=== PATIENT | female | born 1945 | race Caucasian/White ===

== ENCOUNTER → 2017-11-12 13:13 | Outpatient (CLI) | payer MEDICARE, SELFPAY ==
--- NOTE | 2017-11-12 13:17 | NVE_ITS ---
Venous Exam Indications: 782.3 Edema. IMPRESSIONS 1. No evidence of deep or superficial vein thrombosis involving the right lower extremity 2. Incidental findings: At the right upper thigh a vascularized lymph node is visualized measuring 0.6 X 1.98 cm. At the mid to upper thigh a nonvascularized lymph node is visualized measuring 0.78 X 2.5 cm. Right lower extremity venous duplex evaluation. Doppler flow study including spectral analysis, color and aguila scale imaging. Location: Vascular laboratory. Patient status: Outpatient. CRITICAL FINDINGS - Reported to: Nathaly - Read back and verified. - 11/12/2017 - 13:45 PM - Vascularized lymph node Tables: Venous flow and imaging: + +-------+ + Location Overall Flow properties + +-------+ + Right common femoral Patent Normal phasicity; spontaneous; normal augmentation; compressible + +-------+ + Right saphenofemoral junction Patent Compressible + +-------+ + Right profunda femoral Patent Compressible + +-------+ + Right femoral Patent Normal phasicity; spontaneous; normal augmentation; compressible + +-------+ + Right greater saphenous Patent Normal phasicity; spontaneous; normal augmentation; compressible + +-------+ + Right popliteal Patent Normal phasicity; spontaneous; normal augmentation; compressible + +-------+ + Right posterior tibial Patent Compressible + +-------+ + Right peroneal Patent Compressible + +-------+ + Right gastrocnemius Patent Compressible + +-------+ + Right soleal Patent Compressible + +-------+ + (Report amended ) Electronically signed by: Carmelo Barnard [id number]
== END ==
PROVIDERS: PCP Internal Medicine Adolescent Medicine; Visit Provider Internal Medicine Adolescent Medicine
DX: M79.604 Pain in right leg (principal); R60.0 Localized edema
CPT/HCPCS: 93971

== ENCOUNTER → 2017-11-20 10:08 | Outpatient (CLI) | payer MEDICARE, SELFPAY ==
[2017-11-20 10:54] LABS: Blood Urea Nitrogen 9 mg/dL (7-18); Creatinine,Serum 0.78 mg/dL (0.55-1.02); Estimated Glomerular Filt Rate 72 ml/min (>60); GFR (African American) 87 ML/MIN (>60)
--- NOTE | 2017-11-20 11:01 | CT_ITS ---
CT abdomen pelvis w con CLINICAL INDICATION: Lymphadenitis, right leg swelling ORDERING PHYSICIAN: Bebo Stone MD PATIENT AGE: 72 years COMPARISON: None TECHNIQUE: Axial images obtained with sagittal and coronal reformats. PROCEDURE: Oral Contrast: Redicat IV Contrast: 75 mL's of Isovue-370. FINDINGS: There has been prior cholecystectomy. No ductal dilatation evident. Small area of decreased attenuation involves the right hepatic lobe near the gallbladder fossa at 1 cm and may be related to focal fatty infiltration. Follow-up may confirm. The spleen, pancreas, adrenal glands, and kidneys have an unremarkable appearance. No intestinal obstruction, free air, or diverticulitis evident. No evidence of appendicitis. Prior hysterectomy. No pelvic mass, focal inflammatory change, or abnormal fluid collection evident. There is a small umbilical hernia containing fat The left ilium has a somewhat coarsened trabecular appearance. This is of questionable clinical significance. Early Paget's disease is a consideration. Please correlate with serum alkaline phosphatase. IMPRESSION: 1. No acute abdominal pelvic pathology. No abdominal or pelvic adenopathy 2. Small umbilical hernia containing fat. 3. Coarse and appearance of the left ilium with thickened trabecular appearance nonspecific but can be seen with mild Paget's disease. Please correlate clinically
--- NOTE | 2017-11-20 11:01 | CT_ITS ---
CT chest w con HISTORY: Lymphadenitis, ITS.REASON: LYMPHADENITIS ORDERING PHYSICIAN: Bebo Stone MD PATIENT AGE: 72 years TECHNIQUE: Axial images obtained following the administration of 75 mL of Isovue 370 . Sagittal, and coronal reformatted images are also generated and reviewed. COMPARISON: None FINDINGS: No mediastinal or hilar mass or adenopathy. There are some small lymph nodes in the right hilum measuring up to 1.4 x 1 cm. Lobular soft tissue density is present along the anterior aspect of the right hemidiaphragm adjacent to the liver consistent small lymph node 1.6 x 1 cm. Small lymph node is present anterior to the pericardium at 11 mm. There is soft tissue density subcarinal region to the right of the right main pulmonary artery which may be related to subcarinal lymph nodes. This measures 2.9 x 2.5 cm. Pericardial thickening is an additional consideration. There is minimal thickening of pericardium anteriorly. There is normal heart size. There are centrilobular emphysematous changes with bolus changes in the upper lobes with scarring in the upper lobes and bilateral calcified nodules in the upper lobes. No lobar consolidation or collapse. No suspicious pulmonary nodules. There is a noncalcified subpleural nodule in the lingula at 5 mm There is wedging of the T12 vertebral body appears chronic with loss of heights centrally and greater than 50% loss of height anteriorly of 40% IMPRESSION: 1. Centrilobular emphysema with bullous changes and old granulomatous disease. 2. Soft tissue density in the subcarinal region which may be related to adenopathy versus small amount fluid in the pericardium. Consider follow-up 3-4 months to confirm stability. 3. Chronic wedging of T12
== END ==
PROVIDERS: Family Provider Internal Medicine; PCP Internal Medicine Adolescent Medicine; Visit Provider Internal Medicine Adolescent Medicine
DX: I88.9 Nonspecific lymphadenitis, unspecified (principal)
CPT/HCPCS: 36415; 71260; 74177; 82565; 84520

== ENCOUNTER → 2017-12-28 10:03 | Outpatient (CLI) | payer MEDICARE, SELFPAY ==
--- NOTE | 2017-12-28 10:27 | XR_ITS ---
XR DEXA axial skeleton COMPARISON: None HISTORY: Patient is postmenopausal, history of fracture as an adult TECHNIQUE: DEXA scanning lumbar spine and hips FINDINGS: The areas BMD lumbar spine L1-L4 is 1.012 g centimeters squared and the T score is -1.4. The total BMD right hip is 0.710 g centimeters square with T score of -2.4. The right femoral neck is 0.740 g centimeters square with a T score of -2.1. IMPRESSION: Findings in the mild osteopenia range lumbar spine and right hip, left hip values are similar. Consider follow-up study in 2 years
== END ==
PROVIDERS: Family Provider Internal Medicine; PCP Internal Medicine Adolescent Medicine; Visit Provider Internal Medicine Adolescent Medicine
DX: Z13.820 Encounter for screening for osteoporosis (principal); Z78.0 Asymptomatic menopausal state
CPT/HCPCS: 77080

== ENCOUNTER → 2023-09-09 16:56 | Outpatient (CLI) | payer MEDICARE, SELFPAY ==
[2023-09-09 16:53] LABS: Basophils % 0.2 % (0.1-2.0); Eosinophils # 0.1 K/mm3 (0.0-0.4); Eosinophils % 1.8 % (0.1-12.0); Hematocrit 43.3 % (37.0-47.0); Hemoglobin 13.8 g/dL (12.2-16.2); Lymphocytes # 1.8 K/mm3 (0.7-4.5); Lymphocytes % 32.4 % (10-50); Mean Corpuscular HGB Conc 31.8 g/dL (31.8-35.4); Mean Corpuscular Hemoglobin 31.4 pg (27.0-31.2); Mean Corpuscular Volume 98.8 fl (81-99); Mean Platelet Volume 9.3 fl (7.4-10.4); Monocytes # 0.3 K/mm3 (0.1-1.0); Neutrophils # 3.4 K/mm3 (1.8-7.8); Neutrophils % 60.5 % (37.0-80.0); Platelet Count 210 K/mm3 (142-424); Red Blood Count 4.38 M/mm3 (4.20-5.40); Red Cell Distribution Width 14.1 % (11.5-17.5); White Blood Count 5.6 K/mm3 (4.8-10.8)
[2023-09-09 17:09] LABS: Alanine Aminotransferase 26 U/L (12-78); Albumin Level 4.1 g/dl (3.5-5.0); Albumin/Globulin Ratio 1.3 (1.1-1.8); Alkaline Phosphatase 115 U/L (38-126); Anion Gap 10.1 mEq/L (5-15); Aspartate Amino Transferase 55 U/L (14-36); Bilirubin,Total 0.9 mg/dl (0.2-1.3); Blood Urea Nitrogen 6 mg/dl (7-17); Calcium 8.8 mg/dl (8.4-10.2); Carbon Dioxide 26 mmol/L (22.0-30.0); Chloride 106 mmol/L (98-107); Chol/HDL Ratio 3.2 (1-3.5); Cholesterol 174 mg/dl (140-200); Estimated Glomerular Filt Rate 81 ml/min (>60); GFR (African American) 97 ML/MIN (>60); Globulin 3.1 g/dL (1.3-3.2); Glucose 94 mg/dl (74-100); HDL Cholesterol 55 mg/dl (40-60); Potassium 4.1 mmoL/L (3.5-5.1); Sodium 138 mmol/L (136-145); Total Protein,Serum 7.2 g/dl (6.3-8.2); Triglycerides 103 mg/dl (30-150); VLDL Cholesterol 21 mg/dL (0-40)
[2023-09-09 17:19] LABS: Direct LDL Cholesterol 87.71 mg/dL (100-129)
[2023-09-09 17:39] LABS: Thyroid Stimulating Hormone 0.71 uIU/mL (0.465-4.68)
== END ==
PROVIDERS: PCP Family Medicine; Visit Provider Family Medicine
DX: Z00.00 Encounter for general adult medical examination without abnormal findings (principal); Z79.899 Other long term (current) drug therapy
CPT/HCPCS: 80053; 80061; 84443; 85025

== ENCOUNTER 2023-11-19 07:22 | Outpatient (CLI) | payer MEDICARE, SELFPAY ==
[2023-11-18 14:32] VITALS: BMI 26.6
[2023-11-19] VITALS (9 sets, daily range): BP systolic 105–148; BP diastolic 58–85; PULSE 50–63; RESP 16–18; TEMP 36.4; O2SAT 95–98
--- NOTE | 2023-11-19 07:24 | CA_ITS ---
APPROVED REPORT EXAM: Comprehensive 2D, Doppler, and color-flow Echocardiogram Helmet Binder: Zehra Nelson CRT Ht: 5 ft 7 in Wt: 174lbs BSA: 1.91 BP: 142/82 mmHg Indications: Abnormal ECG, COPD, Shortness of Breath, Palpitations, Ablation 2D Dimensions LA Volume 43.00 mL LA Volume Index 22.10 mL/m2 (M/F) 16-34 M-Mode Dimensions RVDd 2.65 cm (0.9-2.6) LA Diam 4.36 cm (1.9-4.0) LVDd 4.69 cm (3.5-5.7) LVDs 3.43 cm (3.5-5.7) IVSd 1.61 cm (0.6-1.1) PWd 0.86 cm (0.6-1.1) EF (Teich) 52.40% FS 26.90% EDV (Teich) 101.90 mL TAPSE 1.58 (<1.7) ESV (Teich) 48.50 mL LV Diastology E Decel Time 350 (160-240 msec) E/A Ratio 0.56 MED A' 12.50 cm/s LAT A' 12.70 cm/s Aortic Valve AI PHT 576.00 ms AO Peak GR. 6.10 mmHg Mitral Valve MV E Max Hiro. 58.0 (40-130 cm/s) MV A Velocity 104.0 (40-130 cm/s) E/A Ratio 0.56 MV PHT 103.0 ms Tricuspid Valve TR P. Velocity 261.00 cm/s RAP Estimate 10.00 mmHg RVSP 37.20 mmHg Left Ventricle The left ventricle is normal size. The left ventricular systolic function is normal. The left ventricular ejection fraction is within the normal range. There is increased LV wall thickness. There is normal LV segmental wall motion. Transmitral Doppler flow pattern suggests impaired LV relaxation. LVEF is 60%. Right Ventricle The right ventricle is normal size. The right ventricular systolic function is normal. Atria The left atrium size is normal. The right atrium size is normal. There is no Doppler evidence of interatrial shunt. Aortic Valve The aortic valve is mildly thickened. There is no aortic valvular stenosis. Mild aortic regurgitation. Mitral Valve The mitral valve is normal in structure. No evidence of mitral valve stenosis. Mild mitral regurgitation. Tricuspid Valve The tricuspid valve leaflets are thin and pliable. Mild tricuspid regurgitation. RVSP is 25-30 mmHg. Pulmonic Valve The pulmonary valve is normal in structure. Trace pulmonic regurgitation. Great Vessels The aortic root is normal in size. The ascending aorta is normal in size. IVC is normal in size and collapses >50% with inspiration. Pericardium There is no pericardial effusion. Other Information Study Quality: Fair Conclusion Normal biventricular systolic function. Mild AI, mild MR, mild TR. RVSP 25-30 mmHg. Electronically signed by : Elizabeth Alejo MD 11/23/2023 11:10:39
--- NOTE | 2023-11-19 07:24 | CA_ITS ---
FINAL REPORT TECHNIQUE: Color Doppler, duplex Doppler and aguila scale sonography of the bilateral neck vasculature was performed. Velocities were measured in the carotid arteries. Stenosis evaluation based on velocity criteria. CLINICAL HISTORY: carotid bruit COMPARISON: None FINDINGS: The peak systolic velocity of the right common carotid artery is 91 cm/sec and internal carotid artery 122 cm/sec. The diastolic velocity in the internal carotid artery is 38 cm/sec. The ICA/CCA ratio is 1.7. Visually, a small amount of plaque is seen. These findings are consistent with less than 50% stenosis. The external carotid artery is patent. The right vertebral artery is patent with antegrade flow. The peak systolic velocity of the left common carotid artery is 73 cm/sec and internal carotid artery 107 cm/sec. The diastolic velocity in the internal carotid artery is 33 cm/sec. The ICA/CCA ratio is 1.5. Visually, a small amount of plaque is seen. These findings are consistent with less than 50% stenosis. The external carotid artery is patent. The left vertebral artery is patent with antegrade flow. IMPRESSION: No evidence of significant carotid stenosis. Bilateral patent vertebral arteries. If indicated, CTA or MRA could further evaluate. Reviewed, Interpreted and Dictated by Jerry Bailon III, MD Transcribed by Meg Johnson Authenticated and [facility]
--- NOTE | 2023-11-19 08:32 | CT_ITS ---
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 A noncontrast coronary calcium scan was performed. A CT attenuation threshold of 130 Hounsfield units (HU) was used for the detection of calcium in contiguous voxels of 1 sq mm in area to be counted as individual lesions. Bolus tracking in the ascending aorta with a threshold of 180 HU was performed. Immediately afterwards, ECG synchronized cardiac CT was then performed from the cardiac base to apex using retrospective gating with ECG tube current modulation. A total of 85 mL of Isovue 370 mg/mL contrast medium was administered at 5 mL/sec followed by a saline flush using a biphasic injection protocol. A tube voltage of 120 KVp was used. The patient received the following medications prior to the cardiac CT. 25 mg of oral metoprolol 0.8 mg of sublingual nitroglycerin The average heart rate at the time of acquisition was 51 bpm and regular. Image Reconstruction Transaxial images were reconstructed at 0.67 mm slide thickness. Data was reviewed interactively on an advanced workstation capable of 2 and 3-dimensional displays in all conventional reconstruction formats, including multiplanar reformations, maximum intensity projections, curved multiplanar reformations, and volume rendered reconstructions. When applicable, selected routine images describing the relevant coronary anatomy and pathology were saved and sent to PACS. Complications None Technical Quality Overall image quality was good. Coronary artery opacification was adequate. Total DLP (Dose-Length Product) is 1639.3 mGy-cm. The reported value represents the total of one or more individual components during the CT acquisition of this date and at this time, and as such, the same value may appear in more than one CT report depending on the interpreting/reporting physicians. COMPARISON None FINDINGS CT Coronary Calcium Scoring LMA (Left Main Artery) = 33 6LAD (Left Anterior Descending) = 6 LCX (Left Coronary Circumflex) = 9 RCA (Right Coronary Artery) = 33 Total Calcium Score = 81 using the AJ-130 method. The observed calcium score of 81 is at 45th percentile for subjects of the same age, sex, and race/ethnicity. The interpretation of the calcium heart score is based on the following continuum*: 0 = no calcified plaque detected (risk of coronary artery disease is very low ??? less than 5%) 1-10 = calcium detected in extremely minimal levels (risk of coronary diseases is still low ??? less than 10%) 11-100 = mild levels of plaque detected with certainty (mild or minimal narrowing of heart arteries is likely) 101-400 = definite,at least moderate levels of plaque detected (relatively high risk of a heart attack within 3-5 years) >401-999 = extensive levels of plaque detected (high risk of heart attack, high levels of vascular disease are present, high likelihood of at least one significant coronary narrowing) *The calcium heart score quantifies the burden of coronary calcification/plaque in the coronary arteries. The calcium heart score is not able to evaluate the presence or burden of non-calcified (i.e. soft) plaque. There is also identifiable calcification in the ascending and descending thoracic aorta and aortic valve. Coronary CT Angiography The coronary arterial system is right dominant. Quantitative Stenosis Grading: Left Main (LM): The left main originates normally from the left sinus of Valsalva. The LM bifurcates into the left anterior descending artery and left circumflex artery. There is calcification in the ostial LM, but without evidence of luminal stenosis. Left Anterior Descending (LAD) and Diagonal Branches: The LAD gives off 2 diagonal branches. There is calcification in the proximal and mid LAD segments, but without evidence of luminal stenosis. There is no evidence of LAD bridge. Left Circumflex (LCX) and Obtuse Marginals (OM): The LCX gives off 2 Obtuse Marginal (OM) branches. There are focal calcifications in the proximal LCX, but without evidence of luminal stenosis. Right Coronary Artery (RCA): The RCA originates normally from the right sinus of Valsalva. The RCA gives off a posterior descending artery (PDA) and posterolateral (PL) branches. There is a mixed calcified/noncalcified plaque in the mid RCA with minimal < 30% luminal stenosis. Non-Coronary Cardiac Findings: Analysis of the left ventricular (LV) structure and function was performed after 3-D reconstruction of the LV from axial images, with user-corrected automatic contouring for assessment of LV volumes and user-defined reconstruction from oblique planes for measurement of 3-D cardiac structure and function. LVEDV: 149 mL LVESV: 71 mL SV: 78 mL LVEF: 53% -The left ventricle is normal in size with normal left ventricular systolic function. -There is left atrial appendage filling defect. This likely represents absence of IV contrast flow during the acquisition of the study images (absence of delayed contrast imaging), but cannot rule out entirely SAM thrombus. Two right pulmonary veins and two left pulmonary veins drain normally into the left atrium. -No pericardial thickening or calcification. -Central and branch pulmonary arteries in the [id number] are unremarkable. -Thoracic aorta within the visualized thoracic aortic-branches in the [id number] is unremarkable. Extracardiac Structures No significant extra-cardiac findings. Note, however, that this study is focused on the cardiac findings. IMPRESSION -Presence of coronary calcification with an Agatston score = 81 using the AJ-130 method. -The observed calcium score of 81 is at 45th percentile for subjects of the same age, sex, and race/ethnicity. -No evidence of significant flow-limiting atherosclerosis of the coronary arteries. -CAD-RADS 1. Management recommendations per ACC/AHA guidelines*, as clinically appropriate. *Recommendations: CAD RADS 0: Reassurance. Consider non-atherosclerotic causes of chest pain. CAD RADS 1: Consider non-atherosclerotic causes of chest pain. Consider preventive therapy and risk factor modification. CAD RADS 2: Consider non-atherosclerotic causes of chest pain. Consider preventive therapy and risk factor modification, particularly for patients with nonobstructive plaque in multiple segments. CAD RADS 3: Consider further functional testing. Consider symptom-guided anti-ischemic and preventive pharmacotherapy as well as risk factor modification per published guideline statements. CAD RADS 4A: Consider further functional testing or invasive coronary angiography with revascularization per published guideline statements. Consider symptom-guided anti-ischemic and preventive pharmacotherapy as well as risk factor modification per published guideline statements. CAD RADS 4B: Invasive coronary angiography recommended with revascularization per published guideline statements. Consider symptom-guided anti-ischemic and preventive pharmacotherapy as well as risk factor modification per published guideline statements. CAD RADS 5: Consider invasive angiography and/or viability assessment with revascularization per published guideline statements. Consider symptom-guided anti-ischemic and preventive pharmacotherapy as well as risk factor modification per published guideline statements. CRITICAL RESULT None COMMUNICATION Per this written report The coronary and cardiac findings of this CCTA were reviewed, reported, and signed by Mayur Alejo MD (Billet Shearer) Conclusion Electronically signed by : Elizabeth Alejo MD 11/25/2023 16:29:43
[2023-11-19] MEDS: METOPROLOL TARTRATE 25MG TABLET *IVABRADINE+METOPROLOL REGIMINE 25 MG PO (09:10)
[2023-11-19 09:29] LABS: Chloride 106 mmol/L (98-107)
[2023-11-19 09:30] LABS: Potassium 5.1 mmoL/L (3.5-5.1); Sodium 137 mmol/L (136-145)
[2023-11-19 09:32] LABS: Blood Urea Nitrogen 10 mg/dl (7-17); Creatinine Clearance Estimated 55 mL/min (50-200); Estimated Glomerular Filt Rate 81 ml/min (>60); GFR (African American) 97 ML/MIN (>60)
[2023-11-19 09:33] LABS: Anion Gap 6.1 mEq/L (5-15); Calcium 9.1 mg/dl (8.4-10.2); Carbon Dioxide 30 mmol/L (22.0-30.0); Glucose 92 mg/dl (74-100)
[2023-11-19] MEDS: NITROGLYCERIN 0.4MG SL TABLET 0.800000000000000044 MG SL (09:53)
[2023-11-19] MEDS: IOPAMIDOL-370 (76%);100ML BOTTLE 85 ML IV (10:12)
[2023-11-19] MEDS: 0.9 % SODIUM CHLORIDE 50 ML VIAL IV (10:12)
[2023-11-19] MEDS: SODIUM CHLORIDE 0.9% 10ML SYR (RAD ONLY) 10 ML IV (10:12)
== END 2023-11-19 10:35 | disposition home or self-care (01) ==
LOC: RT 09:04 → RAD 09:13
PROVIDERS: PCP Family Medicine; Visit Provider Physician Assistant
DX: R42 Dizziness and giddiness; R94.31 Abnormal electrocardiogram [ECG] [EKG]; Z87.891 Personal history of nicotine dependence; R09.89 Other specified symptoms and signs involving the circulatory and respiratory systems; Z79.899 Other long term (current) drug therapy; R06.09 Other forms of dyspnea; I25.10 Atherosclerotic heart disease of native coronary artery without angina pectoris
CPT/HCPCS: 75571; 75574; 80048; 93306; 93880; Q9967

== ENCOUNTER 2024-02-13 22:00 | Emergency (ER) | payer MEDICARE, SELFPAY ==
[2024-02-13 22:09] VITALS: BP 156/75; PULSE 81; RESP 19; TEMP 36.9; O2SAT 94; BMI 25.8
--- NOTE | 2024-02-13 22:25 | XR_ITS ---
PROCEDURE INFORMATION: Exam: XR Chest Exam date and time: 02/13/2024 11:11 PM Age: 78 years old Clinical indication: Shortness of breath; Additional info: Copd TECHNIQUE: Imaging protocol: Radiologic exam of the chest. Views: 2 views. COMPARISON: CHESTW CT chest w con 11/20/2017 11:08 AM FINDINGS: Lungs: Multiple calcified granulomas are again noted. There is mild coarsening of the bronchovascular markings with hyperinflation suggesting underlying obstructive airways disease. Pleural spaces: No large effusion or pneumothorax. Heart/Mediastinum: Stable cardiac and mediastinal contours. Vasculature: There are calcifications of the aortic arch. Bones/joints: No evidence of acute osseous abnormalities within the visualized portions of the thoracic spine and ribs. Osseous structures appear appropriate for patient age. IMPRESSION: No dense parenchymal consolidation, pleural effusion, or pneumothorax.
[2024-02-13 22:30] VITALS: PULSE 71; RESP 18; O2SAT 95
[2024-02-13] MEDS: METHYLPREDNISOLONE SOD SUCC 125MG VIAL 125 MG IV (22:37)
[2024-02-13 23:00] VITALS: BP 99/56; PULSE 80; RESP 20; O2SAT 96
[2024-02-13] MEDS: IPRATROPIUM/ALBUTEROL 3 ML NEB 6 ML IH (23:10)
[2024-02-13 23:11] VITALS: PULSE 83
[2024-02-13 23:30] VITALS: BP 123/67; PULSE 84; RESP 18; O2SAT 92
--- NOTE | 2024-02-13 23:55 | HMH.EDCP ---
Discharge Plan Disposition Patient Disposition: Home, Self-Care Prescriptions Prescriptions: New prednisone 20 mg tablet 40 mg PO DAILY 5 Days Qty: 10 0RF No Action fexofenadine [Chantelle Allergy] 180 mg tablet 180 mg PO DAILY multivitamin Tablet 1 tab PO DAILY pseudoephedrine HCl 120 mg tablet extended release 120 mg PO Q12H Qty: 20 1RF citalopram 20 mg tablet See Rx Instructions .ROUTE .COMPLEX Qty: 90 2RF Dose Instruction: TAKE 1 TABLET 1 TIME EACH DAY Rx Instructions: TAKE 1 TABLET 1 TIME EACH DAY hydroxyzine HCl 25 mg tablet 25 mg PO TID Qty: 30 1RF Trelegy Ellipta 200-62.5-25 mcg blister with device 1 inh inhalation DAILY Qty: 60 2RF ondansetron 4 mg tablet,disintegrating 4 mg PO BID PRN (Reason: nausea and vomiting) 5 Days Qty: 10 2RF Referrals Follow up/Referrals: Bernard Sommer MD [Primary Care Provider] - See instructions Activity Restrictions/Add. Instructions Additional Instructions/Restrictions: Call your family doctor to establish care for this visit to the emergency department and schedule follow-up within 48 hours to ensure improvement. If you have any worsening of your condition or any other concerning signs or symptoms, return to the emergency department or your primary care doctor for further evaluation. Clinical Impressions Clinical Impression: COPD (chronic obstructive pulmonary disease) Qualifiers: COPD type: emphysema Emphysema type: centrilobular Qualified Code(s): J43.2 - Centrilobular emphysema Discharge ED Provider: Eloy Echols [facility] General Chief Complaint: Shortness of Breath/Dyspnea Stated Complaint: SOA, congestion, cough Time Seen by Provider: 02/13/24 22:18 Mode of Arrival: Family Vehicle Source of Information: Patient Limitations: No Limitations Description of Symptoms (Recalled from ER Triage Doc. by RN): 78 yo female who feels like my copd is flaring up . Patient is alert oriented, afebrile. Patient states she felt her allergies causing sinus congestion and has attempted to treat with otc dayquil/nyquil. Patient states no resolution. Noted her chest is starting to feel tight with congestion . Wanted to get ahead of it. History of Present Illness HPI narrative: Please note that above description of symptoms, in this electronic medical record under categorization of recalled from ER triage doctor by RN are reflective of an initial nursing assessment, however, is not reflective of my full history and physical exam that was personally taken and clarified. Consequentially, this preceding description of symptoms, which may include the patient's categorized chief complaint in the EMR, do not reflect my personal clinical impression, and the ultimate description of history of present illness and patient stated complaints should be deferred to this section of the note. Unless stated otherwise or congruent with this section of the note, additional signs, symptoms, or incongruence should be interpreted as inaccurate with my clinical impression. Related Data Home Medications Medication Instructions Recorded Confirmed fexofenadine 180 mg tablet 180 mg PO DAILY 04/15/22 01/25/24 (Chantelle Allergy) multivitamin 1 tab PO DAILY 04/15/22 01/25/24 Previous Rx's Medication Instructions Recorded citalopram 20 mg tablet See Rx Instructions .Route 09/09/23 .COMPLEX #90 tabs fluticasone fur. 200 mcg-umeclid 1 inh inhalation DAILY #60 ea 12/03/23 62.5 mcg-vilant 25 mcg inhalat.powder (Trelegy Ellipta) pseudoephedrine HCl 120 mg 120 mg PO Q12H #20 tabs 01/15/24 tablet,extended release ondansetron 4 mg disintegrating 4 mg PO BID PRN nausea and 01/18/24 tablet vomiting 5 days #10 tabs hydroxyzine HCl 25 mg tablet 25 mg PO TID dizziness #30 tabs 01/25/24 prednisone 20 mg tablet 40 mg (2 x 20 mg) PO DAILY 5 days 02/14/24 #10 tabs Allergies Allergy/AdvReac Type Severity Reaction Status Date / Time Penicillins Allergy sore mouth Verified 01/25/24 14:28 [facility] Disclaimer: The information contained in this section may have been updated after the patient was seen, as this information can be updated by other users. Medical History Urinary tract infection Uterine fibroid Menopause Irritable bowel syndrome (IBS) History of gastroesophageal reflux (GERD) Palpitations Carotid bruit Former smoker COPD (chronic obstructive pulmonary disease) Surgical History History of hemorrhoidectomy History of cholecystectomy History of hysterectomy History of tonsillectomy Family History Mother Cancer Father Coronary artery disease Social History Smoking Status: Former smoker alcohol intake: former substance use type: denies use current occupational status: retired Travel in the last 8 weeks: None household members: friend(s) housing: house ROS Obtained: Yes All systems reviewed & no additional complaints except as documented Physical Exam General General appearance: alert Neck Neck exam: Present trachea midline Chest Chest inspection: Present normal inspection and symmetric chest wall rise Respiratory Respiratory exam: Present wheezes; Absent respiratory distress, stridor, accessory muscle use or prolonged expiratory phase Cardiovascular Cardiovascular exam: Present regular rate and normal rhythm Extremities Exam Extremities exam: Absent edema Neurological Exam Neurological exam: Present alert, oriented X3 and CN II-XII intact Skin Skin exam: Present warm and dry; Absent cyanosis, diaphoresis or pallor HEART Score HEART Score HEART Score assessment performed?: No Critical Care Critical Care Time Critical Care Time: No Medical Decision Making Medical Records Medical records reviewed: Yes I reviewed the patient's medical records. Rk Inquiry Pt receiving controlled substance: No Rk was queried for this patient: No Vital Signs Vital Signs: 02/13/24 22:09 02/13/24 22:30 02/13/24 23:00 Temperature 98.5 F Temperature Source Oral Pulse Rate 71 80 Pulse Rate [Right Brachial] 81 Respiratory Rate 19 18 20 Blood Pressure 99/56 L Blood Pressure [Right Arm] 156/75 H Blood Pressure Mean [Right Arm] 102 Blood Pressure Source [Right Arm] Automatic Cuff Blood Pressure Position [Right Arm] Sitting 02 Sat by Pulse Oximetry 94 L 95 96 Oxygen Delivery Method Room Air Room Air Room Air 02/13/24 23:11 02/13/24 23:30 Temperature Temperature Source Pulse Rate 83 84 Pulse Rate [Right Brachial] Respiratory Rate 18 Blood Pressure 123/67 Blood Pressure [Right Arm] Blood Pressure Mean [Right Arm] Blood Pressure Source [Right Arm] Blood Pressure Position [Right Arm] 02 Sat by Pulse Oximetry 92 L Oxygen Delivery Method Room Air Response Orders (Tests/Meds): ED MEDICATIONS Discontinued Medications Generic Name Dose Route Start Last Admin Trade Name Freq PRN Reason Stop Dose Admin Albuterol/Ipratropium 6 ml 02/13/24 22:31 02/13/24 23:10 Ipratropium/Albuterol 3 Ml Neb IH 02/13/24 22:32 6 ml ONCE ONE Administration Methylprednisolone Sodium Succinate 125 mg 02/13/24 22:30 02/13/24 22:37 Methylprednisolone Sod Succ 125mg Vial IV 02/13/24 22:31 125 mg ONCE ONE Administration ORDERS Category Date Time Status CXR 2 view (NOT portable) [XR chest 2V] Stat Exams 02/13/24 22:25 Completed MDM Narrative Medical Decision Narrative: 78-year-old female history of COPD, hypertension, presenting with cough and shortness of breath. Patient states that she started having upper respiratory symptoms yesterday, 02/11. Throughout today, she has had a little bit of cough and associated shortness of breath. Is nonexertional, nonpositional, no associated chest pain, nausea, vomiting, fevers or chills. Has been using ear inhalers as prescribed. History was obtained via conversation with patient. On arrival, patient hemodynamically stable, alert, oriented x4, appropriate, GCS 15, moving all extremities spontaneously, pupils equal and reactive to light. Full physical exam performed and significant for chronically ill-appearing woman in no acute stress. She does have bilateral diffuse wheezing, no focal breath sounds, mildly tachypneic 22 to 25 breaths/min. Differential includes COPD exacerbation, bronchitis, pneumonia, ACS, [place], among others. Patient was given DuoNeb, Solu-Medrol for symptomatic management and correction of underlying abnormalities. Workup independently interpreted and significant for no acute consolidation on chest x-ray. See radiology read for full review of final results. On reevaluation, patient feeling much better sleeping comfortably without complaint upon being woken. Given patient presentation, workup, history, this most likely represents acute mild COPD exacerbation. Because patient at baseline without signs or symptoms of clinical decompensation, deemed appropriate for discharge. Results were relayed to patient who voiced understanding and were agreeable to outpatient management and follow up. I discussed my clinical impression with patient and answered all questions. At this time, the evidence for any other entities in the differential is insufficient to warrant any further testing or ED observation. This was explained as well. Advisory was given that persistent or worsening symptoms require further evaluation. I confirmed the understanding of this discussion.
[2024-02-14 00:40] VITALS: BP 129/73; PULSE 81; RESP 19; TEMP 36.7; O2SAT 97
== END 2024-02-14 00:44 | disposition home or self-care (01) ==
PROVIDERS: Emergency Provider Emergency Medicine; PCP Family Medicine
DX: J43.2 Centrilobular emphysema (principal); R06.02 Shortness of breath; R05.9 Cough, unspecified
CPT/HCPCS: 71046; 96374; 99284

== ENCOUNTER 2024-05-26 11:25 | Outpatient (CLI) | payer MEDICARE, SELFPAY ==
[2024-05-26 16:47] LABS: Basophils % 0.5 % (0.1-2.0); Eosinophils # 0.2 K/mm3 (0.0-0.4); Hematocrit 36.2 % (37.0-47.0); Hemoglobin 13.2 g/dL (12.2-16.2); Lymphocytes # 1.9 K/mm3 (0.7-4.5); Lymphocytes % 27.2 % (10-50); Mean Corpuscular HGB Conc 36.4 g/dL (31.8-35.4); Mean Corpuscular Hemoglobin 37.8 pg (27.0-31.2); Mean Corpuscular Volume 103.6 fl (81-99); Mean Platelet Volume 8.6 fl (7.4-10.4); Monocytes # 0.5 K/mm3 (0.1-1.0); Monocytes % 6.4 % (1.7-9.3); Neutrophils # 4.5 K/mm3 (1.8-7.8); Neutrophils % 62.9 % (37.0-80.0); Platelet Count 256 K/mm3 (142-424); Red Blood Count 3.49 M/mm3 (4.20-5.40); Red Cell Distribution Width 14.6 % (11.5-17.5); White Blood Count 7.1 K/mm3 (4.8-10.8)
[2024-05-26 17:07] LABS: Alanine Aminotransferase 16 U/L (12-78); Albumin Level 3.5 g/dl (3.5-5.0); Albumin/Globulin Ratio 1.2 (1.1-1.8); Alkaline Phosphatase 102 U/L (38-126); Anion Gap 9.4 mEq/L (5-15); Aspartate Amino Transferase 36 U/L (14-36); Bilirubin,Total 0.6 mg/dl (0.2-1.3); Blood Urea Nitrogen 11 mg/dl (7-17); Carbon Dioxide 25 mmol/L (22.0-30.0); Chloride 108 mmol/L (98-107); Estimated Glomerular Filt Rate 96 ml/min (>60); GFR (African American) 116 ML/MIN (>60); Glucose 88 mg/dl (74-100); Potassium 4.4 mmoL/L (3.5-5.1); Sodium 138 mmol/L (136-145); Total Protein,Serum 6.5 g/dl (6.3-8.2)
[2024-05-26 17:13] LABS: C-Reactive Protein 17.5 mg/L (0-4)
[2024-05-26 17:53] LABS: Erythrocyte Sedimentation Rate 46 mm/hr (0-30)
[2024-05-28 09:36] LABS: RA Latex Turbid. 38.9 IU/mL (<14.0)
[2024-05-28 12:16] LABS: Anti-Cyclic Citrullinated Pept >250 units (0-19)
[2024-05-30 17:09] LABS: Anti-Centromere B Antibodies <0.2 AI (0.0-0.9); Anti-DNA (DS) Ab Qn 5 IU/mL (0-9); Anti-Jo-1 <0.2 AI (0.0-0.9); Anti-Smith Antibody <0.2 AI (0.0-0.9); Antichromatin Antibodies <0.2 AI (0.0-0.9); Antiscleroderma-70 Antibodies <0.2 AI (0.0-0.9); RNP Antibodies <0.2 AI (0.0-0.9); Sjogren's Anti-SS-A <0.2 AI (0.0-0.9); Sjogren's Anti-SS-B <0.2 AI (0.0-0.9)
== END 2024-05-26 23:59 | disposition home or self-care (01) ==
LOC: LAB.DROPOF 05-28 16:36
PROVIDERS: PCP Nurse Practitioner Family; Visit Provider Nurse Practitioner Family
DX: M25.50 Pain in unspecified joint (principal); M79.641 Pain in right hand; M79.642 Pain in left hand
CPT/HCPCS: 80053; 85025; 85651; 86140; 86200; 86225; 86235; 86431

== ENCOUNTER 2024-06-15 16:38 | Outpatient (CLI) | payer MEDICARE, SELFPAY ==
[2024-06-15 19:14] LABS: Vitamin B12 272 pg/mL (239-931)
[2024-06-15 19:15] LABS: Folate 7.28 ng/mL
== END 2024-06-15 23:59 | disposition home or self-care (01) ==
LOC: LAB.DROPOF 16:39
PROVIDERS: PCP Family Medicine; Visit Provider Family Medicine
DX: R71.8 Other abnormality of red blood cells (principal)
CPT/HCPCS: 82607; 82746

== ENCOUNTER 2024-06-20 11:02 | Observation (INO) | payer MEDICARE, SELFPAY ==
[2024-06-20] VITALS (14 sets, daily range): BP systolic 101–145; BP diastolic 53–95; PULSE 66–158; RESP 14–28; TEMP 36.6–36.9; O2SAT 91–99; BMI 26.4; BMI 25.5
--- NOTE | 2024-06-20 11:08 | ECG_ITS ---
APPROVED REPORT Exam: Resting ECG HR:145 bpm ECG Measurements Heart Rate 145 AXES AR 137 P -87 QRSd 81 QRS 202 QT 270 T 83 QTc 354 Conclusion JUNCTIONAL TACHYCARDIA WITH OCCASIONAL VENTRICULAR PREMATURE COMPLEXES, POSSIBLE ATRIAL FLUTTER INDETERMINATE AXIS LEFT POSTERIOR FASCICULAR BLOCK [QRS AXIS > 109, INFERIOR Q] ABNORMAL ECG UNCONFIRMED REPORT Electronically signed by : Bebo Stone MD 06/22/2024 08:26:30
--- NOTE | 2024-06-20 11:16 | XR_ITS ---
FINAL REPORT CLINICAL HISTORY: Shortness of breath, tachycardia COMPARISON: None FINDINGS: A single portable view of the chest was obtained. The heart size and pulmonary vascularity are within normal limits. The mediastinum is within normal limits. There is a right base opacity consistent with pneumonia. The bony thorax is intact. IMPRESSION: Findings consistent with pneumonia. Reviewed, Interpreted and Dictated by Jerry Bailon III, MD Transcribed by Alma Ward Authenticated and [facility]
--- NOTE | 2024-06-20 11:22 | PC.NURSE ---
Rad in room for portable x-ray
[2024-06-20 11:28] LABS: Albumin Level 3.9 g/dl (3.5-5.0); Chloride 107 mmol/L (98-107); Potassium 4.1 mmoL/L (3.5-5.1); Sodium 136 mmol/L (136-145)
[2024-06-20 11:30] LABS: Blood Urea Nitrogen 12 mg/dl (7-17); Creatinine Clearance Estimated 54 mL/min (50-200); Estimated Glomerular Filt Rate 81 ml/min (>60); GFR (African American) 97 ML/MIN (>60)
[2024-06-20 11:31] LABS: Alanine Aminotransferase 24 U/L (12-78); Albumin/Globulin Ratio 1.2 (1.1-1.8); Alkaline Phosphatase 127 U/L (38-126); Anion Gap 8.1 mEq/L (5-15); Aspartate Amino Transferase 37 U/L (14-36); Basophils % 0.4 % (0.1-2.0); Calcium 9.2 mg/dl (8.4-10.2); Carbon Dioxide 25 mmol/L (22.0-30.0); Eosinophils # 0.1 K/mm3 (0.0-0.4); Eosinophils % 0.9 % (0.1-12.0); Globulin 3.2 g/dL (1.3-3.2); Glucose 115 mg/dl (74-100); Hematocrit 44.5 % (37.0-47.0); Lymphocytes # 1.4 K/mm3 (0.7-4.5); Lymphocytes % 13.3 % (10-50); Mean Corpuscular HGB Conc 31.6 g/dL (31.8-35.4); Mean Corpuscular Hemoglobin 31.6 pg (27.0-31.2); Mean Corpuscular Volume 100.1 fl (81-99); Mean Platelet Volume 8.5 fl (7.4-10.4); Monocytes # 0.4 K/mm3 (0.1-1.0); Monocytes % 3.7 % (1.7-9.3); Neutrophils # 8.8 K/mm3 (1.8-7.8); Neutrophils % 81.8 % (37.0-80.0); Platelet Count 253 K/mm3 (142-424); Red Blood Count 4.44 M/mm3 (4.20-5.40); Red Cell Distribution Width 14.5 % (11.5-17.5); Total Protein,Serum 7.1 g/dl (6.3-8.2); White Blood Count 10.8 K/mm3 (4.8-10.8)
--- NOTE | 2024-06-20 11:31 | PC.NURSE ---
Dr. Vargas and PA student at bedside for pt eval
--- NOTE | 2024-06-20 11:38 | ED_ITS ---
Discharge Plan Disposition Patient Disposition: Admitted Chief Complaint: Arrhythmia/Palpitations Prescriptions Prescriptions: No Action fexofenadine [Chantelle Allergy] 180 mg tablet 180 mg PO DAILY multivitamin Tablet 1 tab PO DAILY acetaminophen 325 mg tablet 650 mg PO Q6H PRN (Reason: Pain) sennosides-docusate sodium [Senna with Docusate Sodium] 8.6-50 mg tablet 1 tab-cap PO HS prednisone 2.5 mg tablet 7.5 mg PO DAILY Patient Comments: TAKE 3 TABLETS 1 TIME EACH DAY FOR 28 DAYS. THEN START PRESCRIPTION FOR 5 MG. ibuprofen 400 mg tablet 400 mg PO Q6H PRN (Reason: Pain) omeprazole 20 mg capsule,delayed release(DR/EC) 20 mg PO DAILY hydroxychloroquine 200 mg tablet 300 mg PO ONCE Patient Comments: TAKE 1 AND 1/2 TABLET 1 TIME EACH DAY loratadine 10 mg tablet 10 mg PO DAILY citalopram 20 mg tablet See Rx Instructions .ROUTE .COMPLEX Qty: 90 2RF Dose Instruction: TAKE 1 TABLET 1 TIME EACH DAY Rx Instructions: TAKE 1 TABLET 1 TIME EACH DAY Trelegy Ellipta 200-62.5-25 mcg blister with device 1 inh inhalation DAILY Qty: 60 2RF Referrals Follow up/Referrals: Bernard Sommer MD [Primary Care Provider] - See instructions Clinical Impressions Clinical Impression: Atrial flutter with rapid ventricular response Print Language Print Language: Panamanian Discharge ED Provider: Johnny Vargas General Adult HPI General Chief complaint: Arrhythmia/Palpitations Stated complaint: Fast Heartrate-sent by cardio Time Seen by Provider: 06/20/24 11:17 Mode of Arrival: Wheelchair Source of Information: Patient and Medical Record Limitations: No Limitations Description of Symptoms (Recalled from ER Triage Doc. by RN): Pt c/o SOA, dyspnea, and intermittent rapid heart rate/palpitations. States since Thursday she has been feeling increasing SOA. She was at Cardiology clinic and per her EKG it was a rapid hr 150s. Pt reports she has a hx of ablation and not blood thinners at this time. History of Present Illness HPI narrative: Patient is an 78-year-old female presenting today with a rapid heart rate. She states over the last week or so she is felt her heart fluttering went to cardiology clinic today was found to be in a supraventricular tachycardia sent to the emergency department further evaluation. She has a history of needing an ablation for something similar in the past she is unsure as to where this was done she states either [facility] or [facility]. Is not on any anticoagulation at the moment no history of atrial fibrillation or atrial flutter that she is aware of. No significant chest pain etc. Does have a history of COPD. No cough fevers chills etc. Related Data Home Medications ?Medication ?Instructions ?Recorded ?Confirmed fexofenadine 180 mg tablet 180 mg PO DAILY 04/15/22 06/20/24 (Chantelle Allergy) multivitamin 1 tab PO DAILY 04/15/22 06/20/24 acetaminophen 325 mg tablet 650 mg PO Q6H PRN Pain 06/20/24 06/20/24 hydroxychloroquine 200 mg tablet 300 mg PO ONCE 06/20/24 06/20/24 ibuprofen 400 mg tablet 400 mg PO Q6H PRN Pain 06/20/24 06/20/24 loratadine 10 mg tablet 10 mg PO DAILY 06/20/24 06/20/24 omeprazole 20 mg capsule,delayed 20 mg PO DAILY 06/20/24 06/20/24 release prednisone 2.5 mg tablet 7.5 mg PO DAILY 06/20/24 06/20/24 sennosides 8.6 mg-docusate sodium 1 tab-cap PO HS 06/20/24 06/20/24 50 mg tablet (Senna with Docusate Sodium) Previous Rx's ?Medication ?Instructions ?Recorded citalopram 20 mg tablet See Rx Instructions .Route 09/09/23 .COMPLEX #90 tabs fluticasone fur. 200 mcg-umeclid 1 inh inhalation DAILY #60 ea 04/12/24 62.5 mcg-vilant 25 mcg inhalat.powder (Trelegy Ellipta) Allergies Allergy/AdvReac Type Severity Reaction Status Date / Time Penicillins Allergy sore mouth Verified 06/20/24 10:50 [facility] Disclaimer: The information contained in this section may have been updated after the patient was seen, as this information can be updated by other users. Medical History Urinary tract infection Uterine fibroid Menopause Irritable bowel syndrome (IBS) History of gastroesophageal reflux (GERD) Palpitations Carotid bruit Former smoker COPD (chronic obstructive pulmonary disease) Surgical History History of hemorrhoidectomy History of cholecystectomy History of hysterectomy History of tonsillectomy Family History Mother Cancer Father Coronary artery disease Social History (Updated 06/20/24 @ 11:44 by Jennifer Hutchins RN) Smoking Status: Former smoker smoking status stop date: 1984 alcohol intake: former substance use type: denies use current occupational status: retired Travel in the last 8 weeks: None household members: friend(s) housing: house ROS Obtained: Yes All systems reviewed & no additional complaints except as documented Physical Exam General General appearance: alert Respiratory Respiratory exam: Present normal lung sounds bilaterally Cardiovascular Cardiovascular exam: Present other (Regular tachycardic rhythm staying around 150 with good peripheral perfusion) Neurological Exam Neurological exam: Present alert and oriented X3 Medical Decision Making Rk Inquiry Pt receiving controlled substance: No Vital Signs: 06/20/24 11:03 06/20/24 11:30 06/20/24 12:00 Temperature 98.1 F Temperature Source Oral Pulse Rate 158 H 75 Pulse Rate [Right] 148 H Respiratory Rate 28 H 22 16 Blood Pressure 133/92 H 101/79 L Blood Pressure [Right Arm] 145/95 H Blood Pressure Mean [Right Arm] 111 Blood Pressure Source [Right Arm] Automatic Cuff 02 Sat by Pulse Oximetry 96 99 94 L Oxygen Delivery Method Room Air Room Air Lab Data Lab results reviewed: Yes I reviewed the patient's lab results. Lab Results 06/20/24 11:15: WBC 10.8, RBC 4.44, Hgb 14.0, Hct 44.5, MCV 100.1 H, MCH 31.6 H, MCHC 31.6 L, RDW 14.5, Plt Count 253, MPV 8.5, Neut % (Auto) 81.8 H, Lymph % (Auto) 13.3, Stanton % (Auto) 3.7, Eos % (Auto) 0.9, Baso % (Auto) 0.4, Neut # (Auto) 8.8 H, Lymph # (Auto) 1.4, Stanton # (Auto) 0.4, Eos # (Auto) 0.1, Baso # (Auto) 0.0, Sodium 136, Potassium 4.1, Chloride 107, Carbon Dioxide 25, Anion Gap 8.1, BUN 12, Creatinine 0.70, Estimated Creat Clear 54, Estimated GFR 81, Est GFR ( Amer) 97, Glucose 115 H, Calcium 9.2, Magnesium 2.0, Total Bilirubin 1.0, AST 37 H, ALT 24, Alkaline Phosphatase 127 H, Troponin I < 0.01, Total Protein 7.1, Albumin 3.9, Globulin 3.2, Albumin/Globulin Ratio 1.2, TSH 0.55, Thyroxine (T4) 10.8 06/20/24 11:15 06/20/24 11:15 Orders (Tests/Meds): ED MEDICATIONS Generic Name Dose Route Start Last Admin Trade Name Freq PRN Reason Stop Dose Admin Diltiazem HCl 100 mg/ Sodium 100 mls @ 5 mls/hr 06/20/24 12:00 06/20/24 11:42 Chloride IV 07/20/24 11:59 5 mg/hr .Q20H NO 5 mls/hr Administration Protocol 5 MG/HR Discontinued Medications Generic Name Dose Route Start Last Admin Trade Name Freq PRN Reason Stop Dose Admin Diltiazem HCl 20 mg 06/20/24 11:35 06/20/24 11:42 Diltiazem 25mg/5ml Vial IV 06/20/24 11:36 20 mg ONCE ONE Administration ORDERS Category Date Time Status CXR --portable [XR chest portable] Stat Exams 06/20/24 11:16 Taken Complete Blood Count Auto Diff Stat Lab 06/20/24 11:15 Completed Comprehensive Metabolic Panel Stat Lab 06/20/24 11:15 Completed Magnesium Stat Lab 06/20/24 11:15 Completed T4 (Thyroxine) Stat Lab 06/20/24 11:15 Completed Thyroid Stimulating Hormone Stat Lab 06/20/24 11:15 Completed Troponin I Q3H Lab 06/20/24 14:30 Ordered Troponin I Q3H Lab 06/20/24 17:30 Ordered Troponin I Stat Lab 06/20/24 11:15 Completed ECG Data Tracing #1: I reviewed this ECG and interpreted as documented below: Ventricular to 145 discernible P waves marching out at 300 consistent with atrial flutter variable conduction but close to 2-1 no acute ischemic changes noted indeterminate axis Medical Decision Narrative: 78-year-old female who is well-appearing presents today with a supraventricular tachycardic rhythm heart rate staying right at about 150 she is very well- appearing this is not consistent with sepsis or sinus tachycardia and appears to be atrial flutter with rapid ventricular response. Initially from EKG was performed prior to evaluation in the ED and appeared to be possible AVNRT but with discernible P waves this appears to be most likely atrial flutter. She is not anticoagulated and this will need to be considered will start rate control with diltiazem IV bolus of 20 followed by an infusion. In the meantime we will workup electrolyte abnormalities etc. Reassessment 1216 patient had a very good response to the bolus of diltiazem and went back into normal sinus rhythm a twelve-lead EKG was performed which did in fact show sinus rhythm with a sinus pause. She felt asymptomatic while that EKG was being done she intermittently has gone back into atrial flutter with RVR but for the most part is been back in sinus rhythm she is currently on a diltiazem infusion at 5 mg/h. She will need to be transition to oral medications for a period of time where she can be stable on those medications for outpatient management. Additionally she will need to be anticoagulated this will be per hospital medicine I spoke with Dr. Aquino who is agreeable to this plan and given the fact that patient is intermittently gone back into this we are not going to try an aggressive outpatient regimen which she agrees with. Labs otherwise unremarkable. Critical Care Critical Care Time Critical Care Time: Yes Attestation: On 06/20/24, the high probability of a clinically significant, sudden or life threatening deterioration of the following system(s) required my full and direct attention, intervention and personal management. The time I documented below is in addition to time spent performing reported procedures but includes the following listed in this critical care notation. Total Time Total Critical Care Time: 35
[2024-06-20] MEDS: dilTIAZem 25MG/5ML VIAL 20 MG IV (11:42)
[2024-06-20] MEDS: dilTIAZem HCL 100 MG in 0.9 % SODIUM CHLORIDE 100 ML IV ×2 (11:42→23:04)
[2024-06-20 11:49] LABS: T4 (Thyroxine) 10.8 ug/dl (5.53-11.0); Troponin I < 0.01 ng/ml (0.00-0.034)
--- NOTE | 2024-06-20 12:00 | ECG_ITS ---
APPROVED REPORT Exam: Resting ECG HR:73 bpm ECG Measurements Heart Rate 73 AXES QRSd 82 QRS -54 QT 371 T 80 QTc 397 Conclusion ATRIAL FIBRILLATION INDETERMINATE AXIS ABNORMAL ECG UNCONFIRMED REPORT Electronically signed by : Sreedhar Vargas, 06/20/2024 14:29:16
[2024-06-20 12:02] LABS: Thyroid Stimulating Hormone 0.55 uIU/mL (0.465-4.68)
--- NOTE | 2024-06-20 12:15 | PC.NURSE ---
Dr. Vargas is s/w Dr. Avila for admission
--- NOTE | 2024-06-20 12:17 | PC.NURSE ---
Called house, notified of admission to hospitalist for Afib rvr on diltizem gtt (step down). Bed request placed
--- NOTE | 2024-06-20 12:43 | PC.NURSE ---
Calling report to Uma BARRERA
--- NOTE | 2024-06-20 12:43 | PC.NURSE ---
Dr. Vargas at bedside updating pt
--- NOTE | 2024-06-20 13:06 | PC.NURSE ---
arrived by w/c from ED
--- NOTE | 2024-06-20 14:34 | CA_ITS ---
APPROVED REPORT EXAM: Limited 2D Echocardiogram Director Phone: Patricia Norman RVT Ht: 5 ft 7 in Wt: 163lbs BSA: 1.85 BP: 101/79 mmHg Indications: A-FIB,EF CHECK,HX ABLATION,COPD,PALPS,EX SMOKER M-Mode Dimensions RVDd 3.38 cm (0.9-2.6) LA Diam 3.67 cm (1.9-4.0) LVDd 4.88 cm (3.5-5.7) LVDs 3.00 cm (3.5-5.7) IVSd 0.75 cm (0.6-1.1) PWd 0.66 cm (0.6-1.1) EF (Teich) 68.70% FS 38.50% EDV (Teich) 111.70 mL ESV (Teich) 35.00 mL Other Information Study Quality: Fair Conclusion This is a limited TTE to evaluate for LVEF. Images were obtained. The left ventricle is normal in size. There is increased LV wall thickness. There is low normal LV systolic function. No regional wall motion abnormalities are noted. LVEF is 50%. Electronically signed by : Elizabeth Alejo MD 06/21/2024 11:22:53
--- NOTE | 2024-06-20 14:52 | ECG_ITS ---
APPROVED REPORT Exam: Resting ECG HR:81 bpm ECG Measurements Heart Rate 81 AXES QRSd 84 QRS 63 QT 357 T 90 QTc 394 Conclusion ATRIAL FIBRILLATION POSSIBLE ANTERIOR MYOCARDIAL INFARCTION , PROBABLY OLD [30 ms Q WAVE IN V3/V4, OR R < 0.2 mV IN V4] ABNORMAL RHYTHM ECG UNCONFIRMED REPORT Electronically signed by : Bebo Stone MD 06/22/2024 08:26:15
--- NOTE | 2024-06-20 14:53 | CT_ITS ---
FINAL REPORT TECHNIQUE: Axial CT images were performed from the lung apices through the upper abdomen. Coronal and sagittal reformats were submitted. This study was performed with techniques to keep radiation doses as low as reasonably achievable (ALARA). Individualized dose reduction techniques using automated exposure control or adjustment of mA and/or kV according to the patient's size were employed. CLINICAL HISTORY: ABnormal CXR with RLL and history of smoking >30 y COMPARISON: 11/20/2017 FINDINGS: There is no axillary adenopathy. Small nonspecific mediastinal nodes are present. There are moderate to severe changes of emphysema, and mild scarring present bilaterally. Heart size is normal. There is no pericardial or pleural effusion. Limited images of the upper abdomen are unremarkable. Multiple calcified granulomas are present. There are minimal bibasilar opacities, favor atelectasis or scar. No convincing evidence of pneumonia is seen. 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 The gallbladder has been surgically resected. There is a severe chronic T 12 compression fracture. IMPRESSION: Moderate to severe changes of emphysema, with mild scarring. Minimal bibasilar opacities are present, favor atelectasis or scar. Reviewed, Interpreted and Dictated by Jerry Bailon III, MD Transcribed by Meg Johnson Authenticated and [facility]
--- NOTE | 2024-06-20 14:53 | ECG_ITS ---
APPROVED REPORT Exam: Resting ECG HR:108 bpm ECG Measurements Heart Rate 108 AXES QRSd 84 QRS 59 QT 424 T 92 QTc 488 Conclusion ATRIAL FIBRILLATION WITH RAPID VENTRICULAR RESPONSE POSSIBLE ANTERIOR MYOCARDIAL INFARCTION , PROBABLY OLD [30 ms Q WAVE IN V3/V4, OR R < 0.2 mV IN V4] ABNORMAL RHYTHM ECG UNCONFIRMED REPORT Electronically signed by : Bebo Stone MD 06/22/2024 08:26:19
--- NOTE | 2024-06-20 14:54 | ECG_ITS ---
APPROVED REPORT Exam: Resting ECG HR:70 bpm ECG Measurements Heart Rate 70 AXES ID 179 P 76 QRSd 84 QRS 48 QT 377 T 79 QTc 398 Conclusion SINUS RHYTHM Late R wave progression. Seen on prior tracings. Possible anteroseptal ischemic changes ABNORMAL ECG UNCONFIRMED REPORT Electronically signed by : Bebo Stone MD 06/22/2024 08:26:07
--- NOTE | 2024-06-20 14:59 | P.HP_ITS ---
History of Present Illness *Admission Date: 06/20/24 *Reason for visit:: Irregular heart rhythm *History of present illness: This is an 78-year-old female that presented to her [facility] this morning with concerns of shortness of air and irregular heartbeat. She reports with lying down she could feel her heart skipping beats. She denied associated confusion, unusual headaches, falls or syncopal episodes. She reports no associated retrosternal chest pain or dyspnea at rest. She denies dizziness, dysarthria, loss of motor or sensory function to extremities. She did report some shortness of air with activity. Her past medical history is significant for tobacco dependence in remission (1 pack/day for 30 years?quit ) with COPD diagnoses by PCP currently on inhaler therapy but no home oxygen. She was sent from her [facility] office to the ED for evaluation. In the ED atrial flutter with RVR was noted. Chest imaging identified concerns for right lower lobe infiltrate and the patient does describe dysphagia with dry foods most recently last week. She denies associated fever, chills, hemoptysis or sputum production. She will be admitted to telemetry with cardiology consultation. [facility] Medical History (Updated 06/20/24 @ 15:22 by WONG Finch) Tobacco dependence in remission B12 deficiency Rheumatoid arthritis Urinary tract infection Uterine fibroid Menopause Irritable bowel syndrome (IBS) History of gastroesophageal reflux (GERD) Palpitations Carotid bruit Former smoker COPD (chronic obstructive pulmonary disease) Surgical History History of hemorrhoidectomy History of cholecystectomy History of hysterectomy History of tonsillectomy Family History Mother Cancer Father Coronary artery disease Social History (Updated 06/20/24 @ 13:51 by Piper Porter, BRUCE) Smoking Status: Former smoker smoking status stop date: 1984 alcohol intake: former substance use type: denies use current occupational status: retired Travel in the last 8 weeks: None household members: friend(s) housing: house Review of Systems Review of Systems Review of systems:: pertinent systems reviewed and negative unless documented below Meds Home Medications and Allergies Home Medications ?Medication ?Instructions ?Recorded ?Confirmed ?Type fexofenadine 180 mg tablet 180 mg PO DAILY 04/15/22 06/20/24 History (Chantelle Allergy) multivitamin 1 tab PO DAILY 04/15/22 06/20/24 History fluticasone fur. 200 mcg-umeclid 1 inh inhalation DAILY #60 ea 04/12/24 06/20/24 Rx 62.5 mcg-vilant 25 mcg inhalat.powder (Trelegy Ellipta) acetaminophen 325 mg tablet 650 mg PO Q6H PRN Pain 06/20/24 06/20/24 History citalopram 20 mg tablet 20 mg PO DAILY 06/20/24 06/20/24 History hydroxychloroquine 200 mg tablet 300 mg PO DAILY 06/20/24 06/20/24 History ibuprofen 400 mg tablet 400 mg PO Q6H PRN Pain 06/20/24 06/20/24 History omeprazole 20 mg capsule,delayed 20 mg PO DAILY 06/20/24 06/20/24 History release prednisone 2.5 mg tablet 7.5 mg PO DAILY 06/20/24 06/20/24 History sennosides 8.6 mg-docusate sodium 1 tab-cap PO HS 06/20/24 06/20/24 History 50 mg tablet (Senna with Docusate Sodium) New Prescriptions to Start Prescriptions: Allergies Allergy/AdvReac Type Severity Reaction Status Date / Time Penicillins Allergy sore mouth Verified 06/20/24 10:50 Exam Data for Last 24 hours Vital signs and Labs for Last 24 Hours: Temp Pulse Resp BP Pulse Ox O2 Del Method 98.1 F 122 H 24 124/67 92 L Room Air 06/20/24 13:22 06/20/24 14:00 06/20/24 14:00 06/20/24 14:00 06/20/24 14:00 06/20/24 14:00 Laboratory Results - last 24 hr 06/20/24 11:15: WBC 10.8, RBC 4.44, Hgb 14.0, Hct 44.5, MCV 100.1 H, MCH 31.6 H, MCHC 31.6 L, RDW 14.5, Plt Count 253, MPV 8.5, Neut % (Auto) 81.8 H, Lymph % (Auto) 13.3, Atkinson % (Auto) 3.7, Eos % (Auto) 0.9, Baso % (Auto) 0.4, Neut # (Auto) 8.8 H, Lymph # (Auto) 1.4, Atkinson # (Auto) 0.4, Eos # (Auto) 0.1, Baso # (Auto) 0.0, Sodium 136, Potassium 4.1, Chloride 107, Carbon Dioxide 25, Anion Gap 8.1, BUN 12, Creatinine 0.70, Estimated Creat Clear 54, Estimated GFR 81, Est GFR ( Amer) 97, Glucose 115 H, Calcium 9.2, Magnesium 2.0, Total Bilirubin 1.0, AST 37 H, ALT 24, Alkaline Phosphatase 127 H, Troponin I < 0.01, Total Protein 7.1, Albumin 3.9, Globulin 3.2, Albumin/Globulin Ratio 1.2, TSH 0.55, Thyroxine (T4) 10.8 I & O for Last 24 hours: Intake & Output 06/17/24 06/18/24 06/19/24 06/20/24 23:59 23:59 23:59 23:59 Output Total 0 / 0 Balance 0 / 0 Weight 74.106 kg Constitutional Constitutional: no acute distress and cooperative *Routine HEENT Exam Head: Present normocephalic Eye: Present EOMI and PERRL ENT: Present mucous membranes moist *Routine Neck Exam Neck: Present trachea midline; Absent JVD or lymphadenopathy *Routine Respiratory Exam Respiratory: Present rhonchi, normal respiratory effort and symmetric chest movement; Absent respiratory distress *Routine Cardiovascular Exam Cardiovascular: Present irregular rhythm; Absent murmur *Routine Abdominal Exam Abdominal: Present soft and normoactive bowel sounds; Absent tenderness *Routine Rectal Exam Rectal:: deferred *Routine Genitalia Exam Genitalia:: deferred *Routine Extremities Exam Extremities: Present full ROM, pulses intact and normal capillary refill; Absent cyanosis, clubbing or edema *Routine Skin Exam Skin: Present intact and warm; Absent rash *Routine Neurological Exam Neurological: Present alert, oriented X3, moving all extremities, vision grossly intact, hearing grossly intact and normal speech; Absent sensory deficit or motor deficit Routine Psychiatric Exam Psychiatric: Present normal affect, normal thought process, cooperative, good insight and good judgment Assessment and Plan *Assessment and plan (1) Paroxysmal atrial fibrillation with RVR: Status: Acute Category: Medical Code(s): I48.0 - Paroxysmal atrial fibrillation (2) Dysphagia: Status: Acute Category: Medical Code(s): R13.10 - Dysphagia, unspecified (3) COPD (chronic obstructive pulmonary disease): Status: Acute Qualifiers: COPD type: emphysema Emphysema type: centrilobular Qualified Code(s): J43.2 - Centrilobular emphysema Category: Medical Code(s): J44.9 - Chronic obstructive pulmonary disease, unspecified (4) Tobacco dependence in remission: Status: Acute Category: Medical Code(s): F17.201 - Nicotine dependence, unspecified, in remission (5) Rheumatoid arthritis: Status: Acute Category: Medical Code(s): M06.9 - Rheumatoid arthritis, unspecified (6) B12 deficiency: Status: Acute Category: Medical Code(s): E53.8 - Deficiency of other specified B group vitamins Plan 78-year-old female that presents to her [facility] maternal child office and care transition to the ED with identified dysrhythmia with RVR. Chronic history of pulmonary disease with recently diagnosed rheumatoid arthritis and concerns for dysphagia. Problems addressed as follows: Paroxysmal atrial fibrillation with RVR Telemetry monitoring Cardiology consultation [id number] Trending electrolytes, potassium and magnesium Keep potassium > 4 magnesium > 2 Echocardiogram ordered Previous echo (11/19/2023): EF 60% with RVSP 25 mmHg ED troponin trend negative TSH normal ED chest x-ray with concerns of right lower lobe opacity IV diltiazem Drug therapy requiring intensive monitoring for toxicity Routine blood pressure monitoring Beta-claude therapy Anticoagulation therapy with Eliquis 5 mg twice daily Dysphagia Passed bedside swallow Speech therapy consult Chest x-ray with RLL Appropriate positioning during and after meals Aspiration precautions COPD not in exacerbation Tobacco dependence in remission () Pulse oximetry monitoring Oxygen therapy to maintain appropriate oxygen saturations Currently saturating appropriately on room air (no home O2) Chest x-ray with RLL CT scan of chest without ordered Hcristy/Berkley inhalation therapy as needed Trelegy inhaler B12 deficiency Cyanocobalamin replacement therapy Rheumatoid arthritis Immunocompromise state Chronically prescribed prednisone Plaquenil therapy PPI therapy Caution with cervical spine manipulation The length of stay for this patient will be 2 midnights or greater due to above diagnoses.
--- NOTE | 2024-06-20 15:09 | EXP.CARD.CON ---
History of Present Illness History of Present Illness Consult date: 06/20/24 Requesting physician: Ancelmo Avila Consult reason: atrial fibrillation Chief complaint: Palpitations Additional Medical History:: 1. History of cardiac ablation for unknown rhythm, approximately 1989 at or [facility] in [place], [place] A. Echocardiogram, 11/2023, normal biventricular systolic function, mild AI/MR/TR. RVSP 25-30 mmHg 2. Remote tobacco use for 20 years, discontinued in the 3. COPD per chart 4. Coronary artery disease A. CCTA, 11/2023, CAC 81 with no evidence of flow significant lesions. 5. Remote history of carotid artery disease A. Carotid ultrasound, 11/2023, no significant carotid stenosis bilaterally. 6. Rheumatoid arthritis A. Started on Plaquenil and prednisone, 05/2024 History of present illness: 78-year-old white female with history of arrhythmia and cardiac ablation approximately 30 years ago presented to the cardiology clinic today for several days history of intermittent palpitations/tachycardia. EKG today showed what appeared to be SVT at 152 bpm with left posterior fascicular block. She denies any chest pain, pressure or tightness. No recent fever, chills, nausea or vomiting. No prior history of thyroid disorders. Patient was transferred to the emergency department for further evaluation and consideration of adenosine therapy. Adenosine was not started but patient was given a bolus of Cardizem with subsequent conversion to sinus rhythm. She was then placed on IV Cardizem and admitted for further evaluation. After arriving to the floor patient began to have recurrent episodes of tacky arrhythmias which EKGs appear to show paroxysmal atrial fibrillation. Cardizem is being increased to 10 mg/h with resultant prolongation of periods of sinus rhythm. Patient recently started Plaquenil and prednisone for treatment of her rheumatoid arthritis. Symptoms have greatly improved on this regimen. [facility] Disclaimer: The information contained in this section may have been updated after the patient was seen, as this information can be updated by other users. Medical History (Updated 06/20/24 @ 15:22 by WONG Finch) Tobacco dependence in remission B12 deficiency Rheumatoid arthritis Urinary tract infection Uterine fibroid Menopause Irritable bowel syndrome (IBS) History of gastroesophageal reflux (GERD) Palpitations Carotid bruit Former smoker COPD (chronic obstructive pulmonary disease) Surgical History History of hemorrhoidectomy History of cholecystectomy History of hysterectomy History of tonsillectomy Family History Mother Cancer Father Coronary artery disease Social History (Updated 06/20/24 @ 13:51 by Piper Porter, RN) Smoking Status: Former smoker smoking status stop date: 1984 alcohol intake: former substance use type: denies use current occupational status: retired Travel in the last 8 weeks: None household members: friend(s) housing: house Review of Systems Review of Systems Review of systems:: pertinent systems reviewed and negative unless documented below *Cardiovascular Cardiovascular: Denies dyspnea and Reports rapid heart rate *Respiratory Respiratory: Denies cough and Denies dyspnea Exam Data for Last 24 hours Vital signs and Labs for Last 24 Hours: Temp Pulse Resp BP Pulse Ox O2 Del Method 98.1 F 122 H 24 124/67 92 L Room Air 06/20/24 13:22 06/20/24 14:00 06/20/24 14:00 06/20/24 14:00 06/20/24 14:00 06/20/24 14:00 Laboratory Results - last 24 hr 06/20/24 11:15: WBC 10.8, RBC 4.44, Hgb 14.0, Hct 44.5, MCV 100.1 H, MCH 31.6 H, MCHC 31.6 L, RDW 14.5, Plt Count 253, MPV 8.5, Neut % (Auto) 81.8 H, Lymph % (Auto) 13.3, Mayes % (Auto) 3.7, Eos % (Auto) 0.9, Baso % (Auto) 0.4, Neut # (Auto) 8.8 H, Lymph # (Auto) 1.4, Mayes # (Auto) 0.4, Eos # (Auto) 0.1, Baso # (Auto) 0.0, Sodium 136, Potassium 4.1, Chloride 107, Carbon Dioxide 25, Anion Gap 8.1, BUN 12, Creatinine 0.70, Estimated Creat Clear 54, Estimated GFR 81, Est GFR ( Amer) 97, Glucose 115 H, Calcium 9.2, Magnesium 2.0, Total Bilirubin 1.0, AST 37 H, ALT 24, Alkaline Phosphatase 127 H, Troponin I < 0.01, Total Protein 7.1, Albumin 3.9, Globulin 3.2, Albumin/Globulin Ratio 1.2, TSH 0.55, Thyroxine (T4) 10.8 I & O for Last 24 hours: Intake & Output 06/18/24 06/19/24 06/20/24 06/21/24 11:59 11:59 11:59 11:59 Output Total 0 / 0 Balance 0 / 0 Weight 169 lb 163 lb 6 oz Constitutional Constitutional: no acute distress *Routine Respiratory Exam Respiratory: Present CTA bilaterally; Absent wheezes *Routine Cardiovascular Exam Cardiovascular: Present irregular rhythm Comments: Patient having episodes of tacky arrhythmia and sinus rhythm *Routine Extremities Exam Extremities: Present edema *Routine Neurological Exam Neurological: Present alert, oriented X3 and CN II-XII intact Meds Home Medications and Allergies Home Medications ?Medication ?Instructions ?Recorded ?Confirmed ?Type fexofenadine 180 mg tablet 180 mg PO DAILY 04/15/22 06/20/24 History (Chantelle Allergy) multivitamin 1 tab PO DAILY 04/15/22 06/20/24 History fluticasone fur. 200 mcg-umeclid 1 inh inhalation DAILY #60 ea 04/12/24 06/20/24 Rx 62.5 mcg-vilant 25 mcg inhalat.powder (Trelegy Ellipta) acetaminophen 325 mg tablet 650 mg PO Q6H PRN Pain 06/20/24 06/20/24 History citalopram 20 mg tablet 20 mg PO DAILY 06/20/24 06/20/24 History hydroxychloroquine 200 mg tablet 300 mg PO DAILY 06/20/24 06/20/24 History ibuprofen 400 mg tablet 400 mg PO Q6H PRN Pain 06/20/24 06/20/24 History omeprazole 20 mg capsule,delayed 20 mg PO DAILY 06/20/24 06/20/24 History release prednisone 2.5 mg tablet 7.5 mg PO DAILY 06/20/24 06/20/24 History sennosides 8.6 mg-docusate sodium 1 tab-cap PO HS 06/20/24 06/20/24 History 50 mg tablet (Senna with Docusate Sodium) New Prescriptions to Start Prescriptions: Allergies Allergy/AdvReac Type Severity Reaction Status Date / Time Penicillins Allergy sore mouth Verified 06/20/24 10:50 Assessment and Plan *Assessment and plan (1) Paroxysmal atrial fibrillation with RVR: Status: Acute Category: Medical Code(s): I48.0 - Paroxysmal atrial fibrillation (2) Former smoker: Status: Acute Category: Social Hx Code(s): Z87.891 - Personal history of nicotine dependence (3) COPD (chronic obstructive pulmonary disease): Status: Acute Qualifiers: COPD type: emphysema Emphysema type: centrilobular Qualified Code(s): J43.2 - Centrilobular emphysema Category: Medical Code(s): J44.9 - Chronic obstructive pulmonary disease, unspecified (4) Coronary artery calcification seen on CAT scan: Status: Acute Category: Medical Code(s): I25.10 - Atherosclerotic heart disease of [place] coronary artery without angina pectoris (5) Rheumatoid arthritis: Status: Acute Qualifiers: Rheumatoid arthritis location: multiple sites Rheumatoid factor presence: unspecified presence Qualified Code(s): M06.9 - Rheumatoid arthritis, unspecified Category: Medical Code(s): M06.9 - Rheumatoid arthritis, unspecified Plan 1. Tachyarrhythmia, presumed to be paroxysmal atrial fibrillation -Started on IV Cardizem with improved control -[id number] score of 4 (age, vascular disease, female) for which patient will be started on Eliquis 5 mg twice daily -Add low-dose bisoprolol for additional rate control -Obtain limited echocardiogram for comparison to earlier this year to rule out acute cardiomyopathy -Thyroid functions normal -Troponins normal x 2 2. Right base opacity on chest x-ray consistent with pneumonia -Recent history of choking with cornbread -Defer treatment to Dr. Avila 3. Rheumatoid arthritis -Continue Plaquenil and prednisone Anticipate monitoring the patient overnight to assess dose of IV Cardizem prior to starting oral therapy. Check limited echocardiogram Anticipate discharge home tomorrow if she remains stable
[2024-06-20 15:12] LABS: Troponin I < 0.01 ng/ml (0.00-0.034)
[2024-06-20 15:17] LABS: INR 0.92 (0.9-1.1); Prothrombin Time 10.4 seconds (10.1-12.5)
--- NOTE | 2024-06-20 15:59 | HMH.SLDYSPHA ---
Speech & Language Evaluation Speech/Language Dysphagia Evaluation Start: 06/20/24 15:27 Freq: ONCE Status: Active Protocol: Document 06/20/24 15:27 BRANDON (Rec: 06/20/24 15:59 [facility] Co-signed By ST Shamar Dysphagia Assess/Goals/Plan Assessment Date of Evaluation: 06/20/24 Evaluation Type Initial Certification Assessment/Problems dysphagia per MD order Does Patient Qualify for Service No Qualify/Failure Comment Based on clinical observations made throughout bedside clinical swallow evaluation and pt/family interview, pt does not qualify for further skilled speech therapy services d/t no overt s/sx of aspiration. Recommendations PHYSICIAN CERTIFICATION: The specified therapy services are required, authorized, and reviewed every 30 days. Diet Recommendations Normal Liquid Type Recommendations Normal/Thin SL Swallow Guidelines Alt bite w/sip thru meal, Standard Aspiration Prec.,Eat at slow rate Dysphagia Swallow Precautions/Strategies Sitting Upright (90 deg),Small Bites and Sips,Alternate Liquids/Solids Plan Pt/Guardian verbally ack understanding Yes of dx/prognosis/goals G -code Required No Education Instructions provided TOOL AND DIE MACHINIST discussed results of bedside CSE, diet recommendations, and aspiration precautions/ compensatory strategies with pt and family, nursing, and CM , all of which expressed understanding. Pt/Caregiver able to recall information Able to recall/restate Reinforcement needed No Speech & Language HPI History Present Illness Description of Patient Problem TOOL AND DIE MACHINIST pulled the following from pt's ER documentation and chest x-ray: Patient is an 78-year-old female presenting today with a rapid heart rate. She states over the last week or so she is felt her heart fluttering went to cardiology clinic today was found to be in a supraventricular tachycardia sent to the emergency department further evaluation. She has a history of needing an ablation for something similar in the past she is unsure as to where this was done she states either [facility] or [facility]. Is not on any anticoagulation at the moment no history of atrial fibrillation or atrial flutter that she is aware of. No significant chest pain etc. Does have a history of COPD. No cough fevers chills etc. A single portable view of the chest was obtained. The heart size and pulmonary vascularity are within normal limits. The mediastinum is within normal limits. There is a right base opacity consistent with pneumonia. The bony thorax is intact. Rehab Services Assessed Speech therapy Is this evaluation r/t stroke? No Therapy History Seen by other SL therapists No General Information General Current Food Consistancy Regular,Thin Liquids Dentition Upper & Lower Dentures Oxygen Status Room Air Facial Symmetry Symmetrical Patient Orientation Person,Place,Time,Situation Ability to Follow Directions Excellent Communication Ability No Impairment Dysphagia:Food Presentation Evaluation Food Type Mechanical Soft,Regular,Liquid ,Other Dysphagia Evaluation Summary A bedside clinical swallow evaluation was given on this date with pt sitting upright, on room air, with upper and lower dentures. Pt reported sometimes coughing on dry foods. Pt was seen for CSE during lunch meal. Bolus presentations given include thin liquid (water and Pepsi) via straw, mechanical soft ( sandwich), regular food (chips ), and mixed consistency (soup ). All bolus presentations given x2 or more to assess for fatigue and consistency. No overt s/sx of aspiration were exhibited on any consistency given. Pt had adequate labial seal with no anterior loss. Pt had adequate/efficient mastication and manipulation of bolus. TOOL AND DIE MACHINIST recommends regular foods/thin liquid diet . Compensatory strategies recommended include alternating bites and sips, using extra condiments/gravy, slow eating rate, small bites and sips, sitting upright while eating, and sitting upright 30-60 mins after eating. Stroke Dysphagia Assessment PHYSICIAN CERTIFICATION: I certify the specified therapy services for Delmy Patel are required, authorized, and reviewed every 30 days.
[2024-06-20] MEDS: VITAMIN B-12 1,000 MCG 1ML VIAL 1000 MCG IM (16:40)
[2024-06-20 18:28] LABS: Troponin I < 0.01 ng/ml (0.00-0.034)
[2024-06-20] MEDS: PANTOPRAZOLE 40MG TABLET 40 MG PO (20:10)
[2024-06-20] MEDS: APIXABAN 5MG TABLET 5 MG PO (20:10)
[2024-06-21] VITALS (8 sets, daily range): BP systolic 106–119; BP diastolic 61–69; PULSE 65–80; RESP 15–20; TEMP 36.3–36.7; O2SAT 90–95; BMI 26.7
--- NOTE | 2024-06-21 05:20 | PC.NURSE ---
End of shift note: Patient had no acute changes overnight. She is tolerating Cardizem gtt at 5mL/hr until she is able to transition to PO. VSS with sinus rhythm on tele monitor without tacky arrhythmias present while moving. NAD otherwise.
--- NOTE | 2024-06-21 06:12 | PC.NURSE ---
Received phone call from Malvin Barnett PA-C at 0610 requesting update on patient. Verbal order to give 120mg Cardizem PO now, wait 30 min and then discontinue Cardizem gtt.
[2024-06-21] MEDS: dilTIAZem ER 120MG CAPSULE 120 MG PO (06:18)
[2024-06-21] MEDS: FLUTICASONE/UMECLIDIN/VILANTER 200/62.5/25MCG INHALER 1 PUFF IH (06:20)
--- NOTE | 2024-06-21 07:50 | EXP.CARD.PN ---
Subjective Subjective Date: 06/21/24 Time: 07:50 Principal diagnosis: PAF Interval history: 78-year-old white female in bed in no acute distress. Telemetry shows continued paroxysmal atrial fibrillation but rate improved to around 100 bpm when in A-fib and in the 60s when in sinus rhythm. Patient has tolerated the Cardizem and the anticoagulation overnight. Limited echo results are pending but preliminary review shows preserved ejection fraction. Exam Data for Last 24 hours Vital signs and Labs for Last 24 Hours: Temp Pulse Resp BP Pulse Ox O2 Del Method 97.7 F 65 16 115/69 94 L Room Air 06/21/24 04:00 06/21/24 06:00 06/21/24 06:00 06/21/24 06:00 06/21/24 06:00 06/21/24 06:00 Laboratory Results - last 24 hr 06/20/24 11:15: WBC 10.8, RBC 4.44, Hgb 14.0, Hct 44.5, MCV 100.1 H, MCH 31.6 H, MCHC 31.6 L, RDW 14.5, Plt Count 253, MPV 8.5, Neut % (Auto) 81.8 H, Lymph % (Auto) 13.3, Caldwell % (Auto) 3.7, Eos % (Auto) 0.9, Baso % (Auto) 0.4, Neut # (Auto) 8.8 H, Lymph # (Auto) 1.4, Caldwell # (Auto) 0.4, Eos # (Auto) 0.1, Baso # (Auto) 0.0, PT 10.4, INR 0.92, Sodium 136, Potassium 4.1, Chloride 107, Carbon Dioxide 25, Anion Gap 8.1, BUN 12, Creatinine 0.70, Estimated Creat Clear 54, Estimated GFR 81, Est GFR ( Amer) 97, Glucose 115 H, Calcium 9.2, Magnesium 2.0, Total Bilirubin 1.0, AST 37 H, ALT 24, Alkaline Phosphatase 127 H, Troponin I < 0.01, Total Protein 7.1, Albumin 3.9, Globulin 3.2, Albumin/Globulin Ratio 1.2, TSH 0.55, Thyroxine (T4) 10.8 06/20/24 14:27: Troponin I < 0.01 06/20/24 17:37: Troponin I < 0.01 I & O for Last 24 hours: Intake & Output 06/18/24 06/19/24 06/20/24 06/21/24 11:59 11:59 11:59 11:59 Intake Total 484.250 / 484.250 Output Total 450 / 450 Balance 34.250 / 34.250 Weight 169 lb 170 lb 8 oz Constitutional Constitutional: no acute distress *Routine Respiratory Exam Respiratory: Present decreased breath sounds and CTA bilaterally; Absent wheezes *Routine Cardiovascular Exam Comments: NSR with PAF noted on telemetry *Routine Neurological Exam Neurological: Present alert and oriented X3 Progress Note: A&P Assessment and plan (1) Paroxysmal atrial fibrillation with RVR: Status: Acute (2) Dysphagia: Status: Acute (3) COPD (chronic obstructive pulmonary disease): Status: Acute (4) Tobacco dependence in remission: Status: Acute (5) Rheumatoid arthritis: Status: Acute (6) B12 deficiency: Status: Acute Assessment and Plan Assessment and Plan for All Diagnoses:: 1. Tachyarrhythmia, presumed to be paroxysmal atrial fibrillation -Started on IV Cardizem with improved control. Switching to oral diltiazem CD 120 mg daily. -[id number] score of 4 (age, vascular disease, female) for which patient will be started on Eliquis 5 mg twice daily -Add low-dose metoprolol succinate 25 mg daily for additional rate control -Preliminary echo shows preserved LVEF -Thyroid functions normal -Troponins normal x 2 2. Right base opacity on chest x-ray -Recent history of choking with cornbread. Speech evaluation performed. -Defer treatment to Dr. Avila -chest CT shows moderate to severe emphysema with mild scarring. Minimal basilar opacities appear to be atelectasis or scar. 3. Rheumatoid arthritis -Continue Plaquenil and prednisone 4. Macrocytosis without anemia -B12 started Stable from a cardiac standpoint for discharge when Dr. Avila is ready. Home medication recommendations: Eliquis 5 mg twice daily Cardizem CD 120 mg daily Metoprolol XL 25 mg daily Follow-up in our office in 1 to 2 weeks.
[2024-06-21] MEDS: APIXABAN 5MG TABLET 5 MG PO (08:24)
[2024-06-21] MEDS: VITAMIN B-12 1,000 MCG 1ML VIAL 1000 MCG IM (08:24)
[2024-06-21] MEDS: DOCUSATE SODIUM 100 MG CAPSULE PO (08:25)
[2024-06-21] MEDS: METOPROLOL SUCCINATE XL 25MG TABLET 25 MG PO (08:25)
[2024-06-21] MEDS: HYDROXYCHLOROQUINE SULFATE 200MG TABLET 300 MG PO (08:26)
[2024-06-21] MEDS: predniSONE 5MG TAB 7.5 MG PO (08:26)
--- NOTE | 2024-06-21 11:26 | P.DS_ITS ---
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 She reports with lying down she could feel her heart skipping beats. She denied associated confusion, unusual headaches, falls or syncopal episodes. She reports no associated retrosternal chest pain or dyspnea at rest. She denies dizziness, dysarthria, loss of motor or sensory function to extremities. She did report some shortness of air with activity. Her past medical history is significant for tobacco dependence in remission (1 pack/day for 30 years?quit ) with COPD diagnoses by PCP currently on inhaler therapy but no home oxygen. She was sent from her pediatric speech language pathologist office to the ED for evaluation. In the ED atrial flutter with RVR was noted. Chest imaging identified concerns for right lower lobe infiltrate and the patient does describe dysphagia with dry foods most recently last week. She denies associated fever, chills, hemoptysis or sputum production. She will be admitted to telemetry with cardiology consultation. Hospital Course Hospital Course Hospital Course: The patient was admitted to the telemetry unit with cardiology consultation. Imaging, labs and inflammatory markers were assessed and trended. Problems addressed as follows: Paroxysmal atrial fibrillation with RVR Telemetry monitoring Cardiology consultation reviewed [id number] Trending electrolytes, potassium and magnesium Keep potassium > 4 magnesium > 2 Echocardiogram: Official report pending at time of discharge Previous echo (11/19/2023): EF 60% with RVSP 25 mmHg ED troponin trend negative TSH normal ED chest x-ray with concerns of right lower lobe opacity CT chest with no pulmonary infiltrates IV diltiazem transition to p.o. therapy with stable cardiac rhythm Beta-claude therapy Anticoagulation therapy with Eliquis 5 mg twice daily Dysphagia Passed bedside swallow Speech therapy consult reviewed Chest x-ray with RLL CT chest with no pulmonary infiltrates, emphysema and scarring noted Appropriate positioning during and after meals Aspiration precautions COPD not in exacerbation Tobacco dependence in remission () Pulse oximetry monitoring Oxygen therapy to maintain appropriate oxygen saturations Currently saturating appropriately on room air (no home O2) Chest x-ray with RLL CT scan of chest without contrast identifies emphysema Christy/Berkley inhalation therapy as needed Trelegy inhaler Outpatient follow up with pulmonology for PFTs and COPD assessment B12 deficiency Cyanocobalamin replacement therapy Rheumatoid arthritis Immunocompromise state Chronically prescribed prednisone Plaquenil therapy PPI therapy Caution with cervical spine manipulation The patient was hospitalized with above diagnoses. Her cardiac dysrhythmia resolved on therapy. Cardiology recommended outpatient follow-up evaluations. We have also recommended she see an outpatient decorating equipment setter for evaluation. Case management assisting with discharge needs. We have recommended that she see her primary care doctor in 1 week. Exam Data for Last 24 hours Vital signs and Labs for Last 24 Hours: Temp Pulse Resp BP Pulse Ox O2 Del Method 98.0 F 69 20 106/61 L 90 L Room Air 06/21/24 08:00 06/21/24 10:00 06/21/24 10:00 06/21/24 10:00 06/21/24 10:00 06/21/24 10:49 Laboratory Results - last 24 hr 06/20/24 11:15: WBC 10.8, RBC 4.44, Hgb 14.0, Hct 44.5, MCV 100.1 H, MCH 31.6 H, MCHC 31.6 L, RDW 14.5, Plt Count 253, MPV 8.5, Neut % (Auto) 81.8 H, Lymph % (Auto) 13.3, Harrison % (Auto) 3.7, Eos % (Auto) 0.9, Baso % (Auto) 0.4, Neut # (Auto) 8.8 H, Lymph # (Auto) 1.4, Harrison # (Auto) 0.4, Eos # (Auto) 0.1, Baso # (Auto) 0.0, PT 10.4, INR 0.92, Sodium 136, Potassium 4.1, Chloride 107, Carbon Dioxide 25, Anion Gap 8.1, BUN 12, Creatinine 0.70, Estimated Creat Clear 54, Estimated GFR 81, Est GFR ( Amer) 97, Glucose 115 H, Calcium 9.2, Magnesium 2.0, Total Bilirubin 1.0, AST 37 H, ALT 24, Alkaline Phosphatase 127 H , Troponin I < 0.01, Total Protein 7.1, Albumin 3.9, Globulin 3.2, Albumin/Globulin Ratio 1.2, TSH 0.55, Thyroxine (T4) 10.8 06/20/24 14:27: Troponin I < 0.01 06/20/24 17:37: Troponin I < 0.01 I & O for Last 24 hours: Intake & Output 06/18/24 06/19/24 06/20/24 06/21/24 23:59 23:59 23:59 23:59 Intake Total 384.250 / 484.250 460 / 460 Output Total 0 / 450 550 / 550 Balance 384.250 / 34.250 -90 / -90 Weight 74.106 kg 77.337 kg Constitutional Constitutional: no acute distress and cooperative *Routine HEENT Exam Head: Present normocephalic and atraumatic Eye: Present EOMI and PERRL ENT: Present mucous membranes moist *Routine Neck Exam Neck: Absent JVD or lymphadenopathy *Routine Respiratory Exam Respiratory: Present rhonchi, normal respiratory effort and symmetric chest movement *Routine Cardiovascular Exam Cardiovascular: Present RRR *Routine Abdominal Exam Abdominal: Present soft and normoactive bowel sounds; Absent tenderness *Routine Extremities Exam Extremities: Present full ROM; Absent clubbing or edema *Routine Skin Exam Skin: Absent rash *Routine Neurological Exam Neurological: Present alert, oriented X3, moving all extremities, vision grossly intact, hearing grossly intact and normal speech; Absent sensory deficit or motor deficit Routine Psychiatric Exam Psychiatric: Present normal affect, normal thought process, cooperative and good insight Results Data Completed and Pending Labs on day of discharge: Labs from last 24 hours 06/20/24 06/20/24 06/20/24 17:37 14:27 11:15 WBC 10.8 RBC 4.44 Hgb 14.0 Hct 44.5 MCV 100.1 H MCH 31.6 H MCHC 31.6 L RDW 14.5 Plt Count 253 MPV 8.5 Neut % (Auto) 81.8 H Lymph % (Auto) 13.3 Harrison % (Auto) 3.7 Eos % (Auto) 0.9 Baso % (Auto) 0.4 Neut # (Auto) 8.8 H Lymph # (Auto) 1.4 Harrison # (Auto) 0.4 Eos # (Auto) 0.1 Baso # (Auto) 0.0 PT 10.4 INR 0.92 Sodium 136 Potassium 4.1 Chloride 107 Carbon Dioxide 25 Anion Gap 8.1 BUN 12 Creatinine 0.70 Estimated Creat Clear 54 Estimated GFR 81 Est GFR ( Amer) 97 Glucose 115 H Calcium 9.2 Magnesium 2.0 Total Bilirubin 1.0 AST 37 H ALT 24 Alkaline Phosphatase 127 H Troponin I < 0.01 < 0.01 < 0.01 Total Protein 7.1 Albumin 3.9 Globulin 3.2 Albumin/Globulin Ratio 1.2 TSH 0.55 Thyroxine (T4) 10.8 DS: Diagnosis Discharge Diagnosis (1) Paroxysmal atrial fibrillation with RVR: Status: Acute Code(s): I48.0 - Paroxysmal atrial fibrillation (2) Dysphagia: Status: Acute Code(s): R13.10 - Dysphagia, unspecified (3) COPD (chronic obstructive pulmonary disease): Status: Acute Code(s): J44.9 - Chronic obstructive pulmonary disease, unspecified Qualifiers: COPD type: emphysema Emphysema type: centrilobular Qualified Code(s): J43.2 - Centrilobular emphysema (4) Tobacco dependence in remission: Status: Acute Code(s): F17.201 - Nicotine dependence, unspecified, in remission (5) Rheumatoid arthritis: Status: Acute Code(s): M06.9 - Rheumatoid arthritis, unspecified Qualifiers: Rheumatoid arthritis location: multiple sites Rheumatoid factor presence: unspecified presence Qualified Code(s): M06.9 - Rheumatoid arthritis, unspecified (6) B12 deficiency: Status: Acute Code(s): E53.8 - Deficiency of other specified B group vitamins Meds Home Medications and Allergies Home Medications ?Medication ?Instructions ?Recorded ?Confirmed ?Type fexofenadine 180 mg tablet 180 mg PO DAILY 04/15/22 06/20/24 History (Chantelle Allergy) multivitamin 1 tab PO DAILY 04/15/22 06/20/24 History fluticasone fur. 200 mcg-umeclid 1 inh inhalation DAILY #60 ea 04/12/24 06/20/24 Rx 62.5 mcg-vilant 25 mcg inhalat.powder (Trelegy Ellipta) acetaminophen 325 mg tablet 650 mg PO Q6H PRN Pain 06/20/24 06/20/24 History citalopram 20 mg tablet 20 mg PO DAILY 06/20/24 06/20/24 History hydroxychloroquine 200 mg tablet 300 mg PO DAILY 06/20/24 06/20/24 History omeprazole 20 mg capsule,delayed 20 mg PO DAILY 06/20/24 06/20/24 History release prednisone 2.5 mg tablet 7.5 mg PO DAILY 06/20/24 06/20/24 History sennosides 8.6 mg-docusate sodium 1 tab-cap PO HS 06/20/24 06/20/24 History 50 mg tablet (Senna with Docusate Sodium) apixaban 5 mg tablet (Eliquis) 5 mg PO BID #30 tabs 06/21/24 Rx cyanocobalamin (vitamin B-12) 1,000 mcg PO DAILY #30 caps 06/21/24 Rx 1,000 mcg capsule diltiazem HCl 120 mg 120 mg PO DAILY #30 caps 06/21/24 Rx capsule,extended release 24 hr metoprolol succinate 25 mg 25 mg PO DAILY #30 tabs 06/21/24 Rx tablet,extended release 24 hr New Prescriptions to Start Prescriptions: apixaban [Eliquis] Emeric,Ancelmo cyanocobalamin (vitamin B-12) Emeric,Ancelmo diltiazem HCl Emeric,Ancelmo metoprolol succinate Emeric,Ancelmo Allergies Allergy/AdvReac Type Severity Reaction Status Date / Time Penicillins Allergy sore mouth Verified 06/20/24 10:50 Discharge Plan Disposition Patient Disposition: Home, Self-Care Condition: Fair Discharge Order Discharge Orders: Discharge Order (Routine); Ordered 06/21/24 Ordered By: Ancelmo Avila Follow up Plan Follow up with: Claire Melendez APRN [Nurse Practitioner] - 06/28/24 10:45 am Malvin Barnett PA [Physician Review Rn] - 07/04/24 11:30 am Adelfo Vázquez MD [Physician] - 1 month Prescriptions/Medication Reconciliation: New Eliquis 5 mg Tablet 5 mg PO BID Qty: 30 0RF diltiazem HCl 120 mg Capsule,Extended Release 24hr 120 mg PO DAILY Qty: 30 0RF metoprolol succinate 25 mg Tablet Extended Release 24 Hr 25 mg PO DAILY Qty: 30 0RF cyanocobalamin (vitamin B-12) 1,000 mcg capsule 1,000 mcg PO DAILY Qty: 30 0RF Continued fexofenadine [Chantelle Allergy] 180 mg tablet 180 mg PO DAILY multivitamin Tablet 1 tab PO DAILY acetaminophen 325 mg tablet 650 mg PO Q6H PRN (Reason: Pain) sennosides-docusate sodium [Senna with Docusate Sodium] 8.6-50 mg tablet 1 tab-cap PO HS prednisone 2.5 mg tablet 7.5 mg PO DAILY Patient Comments: TAKE 3 TABLETS 1 TIME EACH DAY FOR 28 DAYS. THEN START PRESCRIPTION FOR 5 MG. omeprazole 20 mg capsule,delayed release(DR/EC) 20 mg PO DAILY hydroxychloroquine 200 mg tablet 300 mg PO DAILY Patient Comments: TAKE 1 AND 1/2 TABLET 1 TIME EACH DAY Trelegy Ellipta 200-62.5-25 mcg blister with device 1 inh inhalation DAILY Qty: 60 2RF citalopram 20 mg tablet 20 mg PO DAILY Rx Instructions: TAKE 1 TABLET 1 TIME EACH DAY Discontinued ibuprofen 400 mg tablet 400 mg PO Q6H PRN (Reason: Pain) Problem Reconciliation Problems Reviewed?: Yes Patient Discharge Instructions ACTIVITY: Ambulate as tolerated DIET: low salt diet and cardiac Patient Instructions: Atrial Flutter, DI for Atrial Fibrillation Print Language: Setswana Providers Primary Care Provider: Bernard Sommer Admit Provider: Ancelmo Avila Attending Provider: Ancelmo Avila
--- NOTE | 2024-06-22 12:30 | CARE MANAGER ---
Contacted patient related to hospital discharge. She states she is feeling much better. She has new medication and is taking it. She is aware of follow up appointments and denies any questions or concerns. BRUCE Trevizo
== END 2024-06-21 12:50 | disposition home or self-care (01) ==
LOC: ER 12:18 → 2ND 12:37
PROVIDERS: Admitting Provider Family Medicine; Emergency Provider Student in an Organized Health Care Education/Training Program; PCP Family Medicine; Visit Provider Family Medicine
DX: I48.0 Paroxysmal atrial fibrillation (principal); J43.2 Centrilobular emphysema; R13.10 Dysphagia, unspecified; M06.9 Rheumatoid arthritis, unspecified; E53.8 Deficiency of other specified B group vitamins; Z87.891 Personal history of nicotine dependence; Z79.899 Other long term (current) drug therapy
CPT/HCPCS: 36415; 71045; 71250; 80053; 83735; 84436; 84443; 84484; 85025; 85610; 92610; 93005; 93308; 99291; G0378; J3420; J7512

== ENCOUNTER 2024-08-16 09:32 | Outpatient (CLI) | payer MEDICARE, SELFPAY ==
[2024-08-16] MEDS: ALBUTEROL 0.083% 2.5 MG/3 ML NEB IH (13:54)
== END 2024-08-16 23:59 | disposition home or self-care (01) ==
PROVIDERS: PCP Family Medicine; Visit Provider Internal Medicine Pulmonary Disease
DX: R06.09 Other forms of dyspnea (principal); J43.9 Emphysema, unspecified
CPT/HCPCS: 94060; 94618; 94726; 94729; 94762; J7613

== ENCOUNTER 2024-09-06 14:25 | Outpatient (CLI) | payer MEDICARE, SELFPAY ==
[2024-09-06 16:19] LABS: Basophils % 0.4 % (0.1-2.0); Eosinophils % 0.4 % (0.1-12.0); Hematocrit 44.8 % (37.0-47.0); Hemoglobin 14.6 g/dL (12.2-16.2); Lymphocytes # 0.9 K/mm3 (0.7-4.5); Lymphocytes % 12.3 % (10-50); Mean Corpuscular HGB Conc 32.7 g/dL (31.8-35.4); Mean Corpuscular Hemoglobin 32.1 pg (27.0-31.2); Mean Corpuscular Volume 98.4 fl (81-99); Mean Platelet Volume 7.9 fl (7.4-10.4); Monocytes # 0.1 K/mm3 (0.1-1.0); Neutrophils % 84.8 % (37.0-80.0); Platelet Count 192 K/mm3 (142-424); Red Blood Count 4.55 M/mm3 (4.20-5.40); Red Cell Distribution Width 14.2 % (11.5-17.5); White Blood Count 7.1 K/mm3 (4.8-10.8)
[2024-09-06 16:53] LABS: Alanine Aminotransferase 91 U/L (12-78); Albumin Level 3.3 g/dl (3.5-5.0); Albumin/Globulin Ratio 1.5 (1.1-1.8); Alkaline Phosphatase 128 U/L (38-126); Anion Gap 10.6 mEq/L (5-15); Aspartate Amino Transferase 75 U/L (14-36); Bilirubin,Total 0.8 mg/dl (0.2-1.3); Blood Urea Nitrogen 23 mg/dl (7-17); Carbon Dioxide 28 mmol/L (22.0-30.0); Chloride 103 mmol/L (98-107); Estimated Glomerular Filt Rate 69 ml/min (>60); GFR (African American) 83 ML/MIN (>60); Globulin 2.2 g/dL (1.3-3.2); Glucose 220 mg/dl (74-100); Potassium 4.6 mmoL/L (3.5-5.1); Sodium 137 mmol/L (136-145); Total Protein,Serum 5.5 g/dl (6.3-8.2)
[2024-09-06 20:44] LABS: HIV (1&2) Antibody Rapid NONREACTIVE (NONREACTIVE)
[2024-09-08 05:10] LABS: HCV Ab Non Reactive (Non Reactive)
== END 2024-09-06 23:59 | disposition home or self-care (01) ==
LOC: LAB.DROPOF 09-07 07:04
PROVIDERS: PCP Family Medicine; Visit Provider Family Medicine
DX: M06.9 Rheumatoid arthritis, unspecified (principal); R53.83 Other fatigue; Z11.59 Encounter for screening for other viral diseases; Z11.4 Encounter for screening for human immunodeficiency virus [HIV]
CPT/HCPCS: 80053; 85025; 86803; 87389

== ENCOUNTER 2024-10-23 07:04 | Emergency (ER) | payer MEDICARE, SELFPAY ==
[2024-10-23] VITALS (13 sets, daily range): BP systolic 121–150; BP diastolic 71–87; PULSE 80–106; RESP 11–37; TEMP 36.5–36.6; O2SAT 89–100; BMI 26.6
--- NOTE | 2024-10-23 07:09 | XR_ITS ---
PROCEDURE INFORMATION: Exam: XR Chest Exam date and time: 10/23/2024 7:23 AM Age: 79 years old Clinical indication: Cough and shortness of breath; Additional info: SOA, cough TECHNIQUE: Imaging protocol: Radiologic exam of the chest. Views: 1 view. COMPARISON: CT CHEST WO CON 06/20/2024 3:43 PM FINDINGS: Lungs: Hyperinflated upper lung zones consistent with emphysema. Small bilateral upper lobe calcified granulomas. No consolidation. Pleural spaces: No significant costophrenic angle blunting. No pneumothorax. Heart/Mediastinum: Heart size is normal. Vasculature: Atherosclerotic tortuosity of the thoracic aorta. Bones/joints: No acute osseous abnormality. IMPRESSION: 1. Emphysema and old granulomatous disease. 2. No evidence of superimposed acute infiltrate or edema at this time.
--- NOTE | 2024-10-23 07:16 | ECG_ITS ---
APPROVED REPORT Exam: Resting ECG HR:97 bpm ECG Measurements Heart Rate 97 AXES MS 167 P 73 QRSd 87 QRS 75 QT 347 T 80 QTc 402 Conclusion Sinus rhythm with sinus arrhythmia Otherwise normal Electronically signed by : DULCE MCKAY, 10/24/2024 07:16:46
[2024-10-23 07:25] LABS: Basophils % 0.4 % (0.1-2.0); Eosinophils # 0.1 K/mm3 (0.0-0.4); Eosinophils % 0.9 % (0.1-12.0); Hematocrit 38.2 % (37.0-47.0); Hemoglobin 12.8 g/dL (12.2-16.2); Lymphocytes # 3.7 K/mm3 (0.7-4.5); Lymphocytes % 37.5 % (10-50); Mean Corpuscular HGB Conc 33.5 g/dL (31.8-35.4); Mean Corpuscular Volume 98.5 fl (81-99); Mean Platelet Volume 9.6 fl (7.4-10.4); Monocytes # 0.5 K/mm3 (0.1-1.0); Monocytes % 5.3 % (1.7-9.3); Neutrophils # 5.4 K/mm3 (1.8-7.8); Neutrophils % 55.4 % (37.0-80.0); Platelet Count 261 K/mm3 (142-424); Red Blood Count 3.88 M/mm3 (4.20-5.40); Red Cell Distribution Width 14.5 % (11.5-17.5); White Blood Count 9.7 K/mm3 (4.8-10.8)
[2024-10-23 07:29] LABS: Albumin Level 3.5 g/dl (3.5-5.0); Chloride 107 mmol/L (98-107); Sodium 136 mmol/L (136-145)
[2024-10-23 07:31] LABS: Blood Urea Nitrogen 8 mg/dl (7-17); Estimated Glomerular Filt Rate 96 ml/min (>60); GFR (African American) 116 ML/MIN (>60)
[2024-10-23 07:32] LABS: Alanine Aminotransferase 37 U/L (12-78); Albumin/Globulin Ratio 1.3 (1.1-1.8); Alkaline Phosphatase 101 U/L (38-126); Aspartate Amino Transferase 47 U/L (14-36); Bilirubin,Total 0.8 mg/dl (0.2-1.3); Calcium 9.6 mg/dl (8.4-10.2); Carbon Dioxide 24 mmol/L (22.0-30.0); Globulin 2.6 g/dL (1.3-3.2); Glucose 103 mg/dl (74-100); Total Protein,Serum 6.1 g/dl (6.3-8.2)
[2024-10-23 07:35] LABS: Activated Partial Thrombo Time 25.2 seconds (22.8-30.6)
[2024-10-23 07:36] LABS: Prothrombin Time 10.2 seconds (10.1-12.5)
[2024-10-23 07:40] LABS: VBG Base Excess -5.3 mmol/L (-2.4-2.3); VBG HCO3 19.1 mmol/L (23-30); VBG Oxygen Saturation 98.5 % (50-70); VBG PCO2 29.9 mmol/L (35-51); VBG PH 7.42 mmol/L (7.31-7.41)
[2024-10-23 07:42] LABS: Magnesium 1.7 mg/dl (1.6-2.3)
[2024-10-23 07:45] LABS: Lactate Venous 2.6 mmol/L (0.4-2.0)
[2024-10-23 07:49] LABS: T4 (Thyroxine) 10.5 ug/dl (5.53-11.0)
[2024-10-23 07:50] LABS: Troponin I < 0.01 ng/ml (0.00-0.034)
[2024-10-23 07:52] LABS: NT Pro Brain Natriuretic Pep. 183 pg/mL (0-450)
--- NOTE | 2024-10-23 07:55 | ED_ITS ---
Discharge Plan Disposition Patient Disposition: Home, Self-Care Prescriptions Prescriptions: New prednisone 20 mg tablet 40 mg PO DAILY 5 Days Qty: 10 0RF No Action acetaminophen 325 mg tablet 650 mg PO Q6H PRN (Reason: Pain) omeprazole 20 mg capsule,delayed release(DR/EC) 20 mg PO DAILY hydroxychloroquine 200 mg tablet 300 mg PO DAILY Patient Comments: TAKE 1 AND 1/2 TABLET 1 TIME EACH DAY prednisone 5 mg tablet 5 mg PO DIRECTED Qty: 196 0RF Rx Instructions: see taper instructions given in office metoprolol succinate 25 mg tablet extended release 24 hr 25 mg PO DAILY Qty: 30 5RF diltiazem HCl 120 mg capsule,extended release 24hr 120 mg PO DAILY Qty: 30 5RF Eliquis 5 mg tablet 5 mg PO BID Qty: 30 5RF Anoro Ellipta 62.5-25 mcg/actuation blister with device 1 inh inhalation DAILY 90 Days Qty: 180 2RF citalopram 20 mg tablet 20 mg PO DAILY 90 Days Qty: 90 0RF Rx Instructions: TAKE 1 TABLET 1 TIME EACH DAY cyanocobalamin (vitamin B-12) 1,000 mcg capsule 1,000 mcg PO DAILY Qty: 30 0RF Referrals Follow up/Referrals: Bernard Sommer MD [Primary Care Provider] - See instructions Activity Restrictions/Add. Instructions Additional Instructions/Restrictions: Follow-up with pulmonology regarding shortness of breath. Call your family doctor to establish care for this visit to the emergency department and schedule follow-up within 48 hours to ensure improvement. If you have any worsening of your condition or any other concerning signs or symptoms, return to the emergency department or your primary care doctor for further evaluation. Clinical Impressions Clinical Impression: Shortness of breath Print Language Print Language: Haitian Discharge ED Provider: Eloy Echols HPI General Chief Complaint: Shortness of Breath/Dyspnea Stated Complaint: soa elevated heart rate Time Seen by Provider: 10/23/24 07:08 History of Present Illness HPI narrative: Please note that above description of symptoms, in this electronic medical record under categorization of recalled from ER triage doctor by RN are reflective of an initial nursing assessment, however, is not reflective of my full history and physical exam that was personally taken and clarified. Consequentially, this preceding description of symptoms, which may include the patient's categorized chief complaint in the EMR, do not reflect my personal clinical impression, and the ultimate description of history of present illness and patient stated complaints should be deferred to this section of the note. Unless stated otherwise or congruent with this section of the note, additional signs, symptoms, or incongruence should be interpreted as inaccurate with my clinical impression. Related Data Home Medications ?Medication ?Instructions ?Recorded ?Confirmed acetaminophen 325 mg tablet 650 mg PO Q6H PRN Pain 06/20/24 09/06/24 hydroxychloroquine 200 mg tablet 300 mg PO DAILY 06/20/24 09/06/24 omeprazole 20 mg capsule,delayed 20 mg PO DAILY 06/20/24 09/06/24 release Previous Rx's ?Medication ?Instructions ?Recorded cyanocobalamin (vitamin B-12) 1,000 mcg PO DAILY #30 caps 06/21/24 1,000 mcg capsule apixaban 5 mg tablet (Eliquis) 5 mg PO BID #30 tabs 07/07/24 diltiazem HCl 120 mg 120 mg PO DAILY #30 caps 07/07/24 capsule,extended release 24 hr metoprolol succinate 25 mg 25 mg PO DAILY #30 tabs 07/07/24 tablet,extended release 24 hr prednisone 5 mg tablet 5 mg PO DIRECTED #196 tabs 09/06/24 umeclidinium 62.5 mcg-vilanterol 1 inh inhalation DAILY 90 days 09/29/24 25 mcg/actuation powdr for #180 ea inhalation (Anoro Ellipta) citalopram 20 mg tablet 20 mg PO DAILY 90 days #90 tabs 10/17/24 prednisone 20 mg tablet 40 mg (2 x 20 mg) PO DAILY 5 days 10/23/24 #10 tabs Allergies Allergy/AdvReac Type Severity Reaction Status Date / Time Penicillins Allergy sore mouth Verified 09/06/24 13:37 [facility] Disclaimer: The information contained in this section may have been updated after the patient was seen, as this information can be updated by other users. Medical History History of rheumatoid arthritis COPD mixed type Multiple lung nodules on CT History of smoking 30 or more pack years Pulmonary emphysema Tobacco dependence in remission B12 deficiency Rheumatoid arthritis Urinary tract infection Uterine fibroid Menopause Irritable bowel syndrome (IBS) History of gastroesophageal reflux (GERD) Palpitations Carotid bruit Former smoker COPD (chronic obstructive pulmonary disease) Surgical History History of hemorrhoidectomy History of cholecystectomy History of hysterectomy History of tonsillectomy Family History Mother Cancer Father Coronary artery disease Social History (Updated 09/06/24 @ 13:38 by Julieta Calvo MA) Smoking Status: Former smoker smoking status stop date: 1984 alcohol intake: former substance use type: denies use current occupational status: retired Travel in the last 8 weeks: None household members: friend(s) housing: house Have you lived/traveled outside [place] in past 30 days?: No Contact w/someone who lives/traveled outside US past 30 days?: No Exposure to someone with infectious disease in past 14 days?: No Do you have a fever (greater than 100.4 F or 38 C)?: No Have you tested positive for COVID-19: No Exposed to someone with COVID-19 in past 14 days?: No Do you have a sore throat?: No Do you have a cough?: No Do you have any weakness?: No Do you have any diarrhea?: No Are you experiencing any unusual bleeding?: No Do you have any muscle aches/pain?: No Do you have any abdominal pain?: No Are you experiencing loss of taste or smell?: No Other Medical History Have you received the Flu Vaccine for this season: No Have you received the Pneumonia Vaccine: Yes ROS Obtained: Yes All systems reviewed & no additional complaints except as documented Physical Exam General General appearance: alert and in no apparent distress Neck Neck exam: Present trachea midline Chest Chest inspection: Present normal inspection and symmetric chest wall rise Respiratory Respiratory exam: Present normal lung sounds bilaterally and other (Speaking in full sentences); Absent respiratory distress, wheezes, stridor, accessory muscle use or prolonged expiratory phase Cardiovascular Cardiovascular exam: Present regular rate, normal rhythm and other (Pulses equal and symmetric in upper and lower extremities) Abdominal Exam Abdominal exam: Present soft; Absent distention or tenderness Extremities Exam Extremities exam: Present edema (1+ lower extremity pitting) Neurological Exam Neurological exam: Present alert, oriented X3, CN II-XII intact and normal gait; Absent motor sensory deficit Skin Skin exam: Present warm and dry; Absent cyanosis, diaphoresis or pallor HEART Score HEART Score HEART Score assessment performed?: Yes History (anamnesis): Moderately suspicious ECG: Normal Age: >65 years Risk factors: 3 or more risk factors Troponin: </= normal limit HEART Score: 5 Critical Care Critical Care Time Critical Care Time: No Medical Decision Making Medical Records Medical records reviewed: Yes I reviewed the patient's medical records. Rk Inquiry Pt receiving controlled substance: No Rk was queried for this patient: No Vital Signs Vital Signs: 10/23/24 07:05 10/23/24 07:30 10/23/24 07:45 Temperature 97.7 F Temperature Source Oral Pulse Rate 92 H 90 Pulse Rate [Right] 106 H Respiratory Rate 26 H 16 Blood Pressure 128/81 137/80 Blood Pressure [Right Arm] 146/85 H Blood Pressure Mean [Right Arm] 105 Blood Pressure Source [Right Arm] Automatic Cuff 02 Sat by Pulse Oximetry 95 95 94 L Oxygen Delivery Method Room Air Room Air 10/23/24 08:00 10/23/24 08:15 10/23/24 08:30 Temperature Temperature Source Pulse Rate 90 87 80 Pulse Rate [Right] Respiratory Rate 17 13 37 H Blood Pressure 136/85 131/85 140/79 Blood Pressure [Right Arm] Blood Pressure Mean [Right Arm] Blood Pressure Source [Right Arm] 02 Sat by Pulse Oximetry 93 L 92 L 100 Oxygen Delivery Method 10/23/24 08:45 10/23/24 09:01 10/23/24 09:15 Temperature Temperature Source Pulse Rate 87 92 H 97 H Pulse Rate [Right] Respiratory Rate 11 L 14 19 Blood Pressure 147/77 H 121/76 144/80 H Blood Pressure [Right Arm] Blood Pressure Mean [Right Arm] Blood Pressure Source [Right Arm] 02 Sat by Pulse Oximetry 100 94 L 95 Oxygen Delivery Method Room Air Room Air 10/23/24 09:30 10/23/24 10:00 10/23/24 10:15 Temperature Temperature Source Pulse Rate 102 H 106 H 105 H Pulse Rate [Right] Respiratory Rate 19 25 H 24 Blood Pressure 150/87 H 133/76 126/73 Blood Pressure [Right Arm] Blood Pressure Mean [Right Arm] Blood Pressure Source [Right Arm] 02 Sat by Pulse Oximetry 92 L 94 L 89 L Oxygen Delivery Method Room Air Room Air Lab Data Labs: Lab Results 10/23/24 07:22: WBC 9.7, RBC 3.88 L, Hgb 12.8, Hct 38.2, MCV 98.5, MCH 33.0 H, MCHC 33.5, RDW 14.5, Plt Count 261, MPV 9.6, Neut % (Auto) 55.4, Lymph % (Auto) 37.5, [place] % (Auto) 5.3, Eos % (Auto) 0.9, Baso % (Auto) 0.4, Neut # (Auto) 5.4, Lymph # (Auto) 3.7, [place] # (Auto) 0.5, Eos # (Auto) 0.1, Baso # (Auto) 0.0, PT 10.2, INR 0.90, APTT 25.2, Sodium 136, Potassium 4.0, Chloride 107, Carbon Dioxide 24, Anion Gap 9.0, BUN 8, Creatinine 0.60, Estimated GFR 96, Est GFR ( Amer) 116, Glucose 103 H, Calcium 9.6, Magnesium 1.7, Total Bilirubin 0.8, AST 47 H, ALT 37, Alkaline Phosphatase 101, Troponin I < 0.01, NT-Pro-B Natriuret Pep 183, Total Protein 6.1 L, Albumin 3.5, Globulin 2.6, Albumin/Globulin Ratio 1.3, TSH 1.73, Thyroxine (T4) 10.5 10/23/24 07:25: VBG pH 7.42 H, VBG pCO2 29.9 L, VBG pO2 111.0 H, VBG HCO3 19.1 L , VBG Total CO2 20.0 L, VBG O2 Saturation 98.5 H, VBG Base Excess -5.3 L, VBG Lactic Acid 2.6 H, HCV Ab DARION w/Rflx PCR Qn Negative, HIV Ag/Ab Combo Qual Negative 10/23/24 07:22 10/23/24 07:22 Response Orders (Tests/Meds): ED MEDICATIONS Discontinued Medications Generic Name Dose Route Start Last Admin Trade Name Freq PRN Reason Stop Dose Admin Albuterol/Ipratropium 9 ml 10/23/24 07:09 10/23/24 07:39 Ipratropium/Albuterol 3 Ml Neb IH 10/23/24 07:10 Not Given ONCE ONE Albuterol/Ipratropium 9 ml 10/23/24 08:02 10/23/24 08:20 Ipratropium/Albuterol 3 Ml Neb IH 10/23/24 08:03 9 ml ONCE ONE Administration Ketorolac Tromethamine 15 mg 10/23/24 09:32 10/23/24 09:47 Ketorolac 30mg/Ml Vial IV 10/23/24 09:33 15 mg ONCE ONE Administration Methylprednisolone Sodium Succinate 125 mg 10/23/24 07:09 10/23/24 07:39 Methylprednisolone Sod Succ 125mg Vial IV 10/23/24 07:10 Not Given ONCE ONE Methylprednisolone Sodium Succinate 125 mg 10/23/24 08:02 10/23/24 08:20 Methylprednisolone Sod Succ 125mg Vial IV 10/23/24 08:03 125 mg ONCE ONE Administration ORDERS Category Date Time Status CT chest wo con Stat Cat Scan 10/23/24 09:07 Completed XR chest portable Stat Exams 10/23/24 07:09 Completed Complete Blood Count Auto Diff Stat Lab 10/23/24 07:22 Completed Comprehensive Metabolic Panel Stat Lab 10/23/24 07:22 Completed HIV Combo Stat Lab 10/23/24 07:25 Completed Hepatitis C Ab Qual. W/ RFX Stat Lab 10/23/24 07:25 Completed Magnesium Stat Lab 10/23/24 07:22 Completed NT Pro Brain Natriuretic Pep. Stat Lab 10/23/24 07:22 Completed PT INR [Prothrombin Time INR] Stat Lab 10/23/24 07:22 Completed PTT [Activated Partial Thrombo Time] Stat Lab 10/23/24 07:22 Completed T4 (Thyroxine) Stat Lab 10/23/24 07:22 Completed TSH [Thyroid Stimulating Hormone] Stat Lab 10/23/24 07:22 Completed Troponin I Stat Lab 10/23/24 07:22 Completed Venous Blood Gas Stat RT 10/23/24 07:25 Completed MDM Narrative Medical Decision Narrative: This is an 79-year-old female history of hypertension, hyper EMEA, CAD, COPD not still smoking, paroxysmal A-fib on Eliquis, rheumatoid arthritis on hydroxychloroquine and methotrexate/folate presenting with shortness of breath. She states that she has been feeling short of breath for the last 2 weeks or so. Progressive, no acute change. States that she is also been coughing but that is been nonproductive. No fevers or chills, vomiting, but she has had nausea and diarrhea, which she states is normal being on the RA medications she currently takes. Does state that she is also had lower extremity swelling and shortness of breath when lying flat. History was obtained via conversation with patient. On arrival, patient hemodynamically stable, alert, oriented x4, appropriate, GCS 15, moving all extremities spontaneously, pupils equal and reactive to light. Full physical exam performed and significant for well- appearing female who is in no acute distress. Speaking in full sentences, nontachycardic, but she is mildly tachypneic around 25 breaths/min. Lungs are clear with no focal breath sounds. Cardiac exam without acute abnormality. She does have bilateral lower extremity edema 1+ with symmetric pulses in upper and lower extremities. Differential includes COPD, pneumonia, CHF, ACS, CO, pneumothorax, dehydration, BRE, metabolic abnormality, endocrinologic abnormality, among others. Patient placed on continuous cardiac monitoring and continuous pulse ox with initial blood pressure 146/85, heart rate 106, saturation 95% on room air. Independent interpretation of EKG shows sinus rhythm [address] or T wave changes concerning for acute ischemia. NE 167, QRS 87, QTc 402. Normal axis. Workup independently interpreted and significant for nonactionable CBC or chemistry. Patient's VBG consistent with mild metabolic acidosis with respiratory compensation. pH 7.42, CO2 low at 30, bicarb low at 19. Anion gap is normal. Troponin and BNP negative, thyroid studies normal.. On independent interpretation of imaging, appears to be chronic scarring of the lungs. Because patient does not appear to be volume overloaded, DuoNebs and Solu-Medrol were administered. See radiology read for full review of final results. Because patient has some scarring, CT chest was ordered as she has not had a CT to evaluate her lung parenchyma in a few months at this point. On independent interpretation, no acute changes. Heart score 5. Delta troponins were considered, but patient feeling almost entirely back to baseline after DuoNebs and Solu-Medrol. States that she feels comfortable calling pulmonology tomorrow, 10/24 to schedule outpatient follow-up. I feel this is appropriate. Patient sent home with steroid burst and close outpatient follow-up with close return precautions. [employer] Com[employer] Technician disclaimer Much of this encounter note is an electronic printer helper spoken language to printed text. Electronic printer helper of the spoken language may permit errors. Although I have reviewed the note, some errors may still exist.
[2024-10-23 08:03] LABS: Thyroid Stimulating Hormone 1.73 uIU/mL (0.465-4.68)
[2024-10-23] MEDS: METHYLPREDNISOLONE SOD SUCC 125MG VIAL 125 MG IV (08:20)
[2024-10-23] MEDS: IPRATROPIUM/ALBUTEROL 3 ML NEB 9 ML IH (08:20)
[2024-10-23 08:53] LABS: HIV Combo NEGATIVE (Negative)
[2024-10-23 09:00] LABS: Hepatitis C Ab Qual. W/ RFX NEGATIVE (Negative)
--- NOTE | 2024-10-23 09:07 | CT_ITS ---
PROCEDURE INFORMATION: Exam: CT Chest Without Contrast; Diagnostic Exam date and time: 10/23/2024 9:44 AM Age: 79 years old Clinical indication: Shortness of breath; Additional info: Compare to past, new onset worsening shortness of TECHNIQUE: Imaging protocol: Diagnostic computed tomography of the chest without contrast. Radiation optimization: All CT scans at this facility use at least one of these dose optimization techniques: automated exposure control; mA and/or kV adjustment per patient size (includes targeted exams where dose is matched to clinical indication); or iterative reconstruction. COMPARISON: CT CHEST WO CON 06/20/2024 3:43 PM FINDINGS: Lungs: Severe underlying emphysematous change. Focal areas of scarring. Scattered calcified nodular densities in the upper lobes. Pleural spaces: Unremarkable. No pneumothorax. No pleural effusion. Heart: Unremarkable. No cardiomegaly. No pericardial effusion. Lymph nodes: Unremarkable. No enlarged lymph nodes. Vasculature: Unremarkable. No aortic aneurysm. Bones/joints: Chronic sternal fracture deformity. Chronic fracture deformity of T12. Soft tissues: Unremarkable. IMPRESSION: Underlying emphysema. No infiltrate or pleural effusion
[2024-10-23] MEDS: KETOROLAC 30MG/ML VIAL 15 MG IV (09:47)
[2024-10-23 11:44] LABS: Reflex Lactic Add Lactic Reflex
== END 2024-10-23 10:54 | disposition home or self-care (01) ==
PROVIDERS: Emergency Provider Emergency Medicine; PCP Family Medicine
DX: R06.02 Shortness of breath (principal); R06.00 Dyspnea, unspecified; R05.9 Cough, unspecified; R11.0 Nausea; R19.7 Diarrhea, unspecified; R22.43 Localized swelling, mass and lump, lower limb, bilateral
CPT/HCPCS: 71045; 71250; 80053; 82803; 83735; 83880; 84436; 84443; 84484; 85025; 85610; 85730; 86803; 87389; 93005; 96374; 96375; 99284; J1885; J2919; J7620

== ENCOUNTER 2024-10-27 10:05 | Outpatient (CLI) | payer MEDICARE, SELFPAY ==
[2024-10-27 16:27] LABS: Basophils % 0.4 % (0.1-2.0); Eosinophils # 0.1 K/mm3 (0.0-0.4); Eosinophils % 0.7 % (0.1-12.0); Hematocrit 39.3 % (37.0-47.0); Hemoglobin 12.5 g/dL (12.2-16.2); Lymphocytes % 49.8 % (10-50); Mean Corpuscular HGB Conc 31.8 g/dL (31.8-35.4); Mean Corpuscular Hemoglobin 32.7 pg (27.0-31.2); Mean Corpuscular Volume 102.9 fl (81-99); Mean Platelet Volume 10.1 fl (7.4-10.4); Monocytes # 0.6 K/mm3 (0.1-1.0); Monocytes % 6.4 % (1.7-9.3); Neutrophils # 4.1 K/mm3 (1.8-7.8); Neutrophils % 41.2 % (37.0-80.0); Platelet Count 313 K/mm3 (142-424); Red Blood Count 3.82 M/mm3 (4.20-5.40); Red Cell Distribution Width 14.9 % (11.5-17.5)
[2024-10-27 16:57] LABS: Albumin Level 3.5 g/dl (3.5-5.0); Chloride 105 mmol/L (98-107); Potassium 4.2 mmoL/L (3.5-5.1); Sodium 137 mmol/L (136-145)
[2024-10-27 17:00] LABS: Alanine Aminotransferase 38 U/L (12-78); Albumin/Globulin Ratio 1.5 (1.1-1.8); Alkaline Phosphatase 107 U/L (38-126); Anion Gap 7.2 mEq/L (5-15); Aspartate Amino Transferase 49 U/L (14-36); Bilirubin,Total 0.5 mg/dl (0.2-1.3); Blood Urea Nitrogen 17 mg/dl (7-17); Calcium 9.7 mg/dl (8.4-10.2); Carbon Dioxide 29 mmol/L (22.0-30.0); Estimated Glomerular Filt Rate 80 ml/min (>60); GFR (African American) 97 ML/MIN (>60); Globulin 2.3 g/dL (1.3-3.2); Glucose 85 mg/dl (74-100); Total Protein,Serum 5.8 g/dl (6.3-8.2)
== END 2024-10-27 23:59 | disposition home or self-care (01) ==
LOC: LAB.DROPOF 10-28 08:59
PROVIDERS: PCP Family Medicine; Visit Provider Family Medicine
DX: J43.2 Centrilobular emphysema (principal)
CPT/HCPCS: 80053; 85025

== ENCOUNTER 2024-12-07 16:51 | Outpatient (CLI) | payer MEDICARE, SELFPAY ==
[2024-12-07 15:20] LABS: Coronavirus 19, PCR Not Detected (NotDetected); Influenza B, PCR Not Detected (NotDetected)
[2024-12-07 19:50] LABS: Influenza A, PCR Detected (NotDetected)
== END 2024-12-07 23:59 | disposition home or self-care (01) ==
LOC: LAB.DROPOF 12-08 16:52
PROVIDERS: PCP Student in an Organized Health Care Education/Training Program; Visit Provider Student in an Organized Health Care Education/Training Program
DX: R50.9 Fever, unspecified (principal); R05.9 Cough, unspecified; R06.00 Dyspnea, unspecified; R09.81 Nasal congestion; Z20.828 Contact with and (suspected) exposure to other viral communicable diseases
CPT/HCPCS: 87636

== ENCOUNTER 2024-12-12 08:33 | Inpatient (IN) | payer MEDICARE, SELFPAY ==
[2024-12-12] VITALS (12 sets, daily range): BP systolic 96–155; BP diastolic 65–82; PULSE 70–87; RESP 18–24; TEMP 36.3–36.9; O2SAT 88–95; BMI 26.6; BMI 26.0
--- NOTE | 2024-12-12 09:23 | XR_ITS ---
FINAL REPORT TECHNIQUE: Single view chest CLINICAL HISTORY: dyspnea COMPARISON: 10/23/2024 FINDINGS: A single view of the chest was obtained. The heart and mediastinum are within normal limits. There is emphysematous change and old calcified granulomatous disease. The lungs are otherwise clear. There is no pneumothorax. IMPRESSION: No acute cardiopulmonary process. Reviewed, Interpreted and Dictated by Suni Davenport MD Transcribed by Margot Bland Authenticated and [facility]
--- NOTE | 2024-12-12 09:25 | HMH.EDGENADL ---
Discharge Plan Disposition Patient Disposition: Admitted Prescriptions Prescriptions: No Action acetaminophen 325 mg tablet 650 mg PO Q6H PRN (Reason: Pain) Humira Pen 40 mg/0.8 mL pen injector kit SQ prednisone 20 mg tablet 20 mg PO BID Qty: 10 0RF azithromycin [Zithromax Z-Salazar] 250 mg tablet See Rx Instructions PO .COMPLEX Qty: 6 0RF Rx Instructions: For 250 mg dose pack: take 500 mg today (day 1), then 250 mg for 4 days (days 2-5) PO benzonatate 100 mg capsule 100 mg PO BID PRN (Reason: cough) Qty: 20 0RF diltiazem HCl 120 mg capsule,extended release 24hr 120 mg PO DAILY Qty: 30 5RF citalopram 20 mg tablet 20 mg PO DAILY 90 Days Qty: 90 0RF Rx Instructions: TAKE 1 TABLET 1 TIME EACH DAY Eliquis 5 mg tablet 5 mg PO BID Qty: 30 5RF Anoro Ellipta 62.5-25 mcg/actuation blister with device 1 inh inhalation DAILY 90 Days Qty: 180 2RF oseltamivir 75 mg capsule 75 mg PO BID 5 Days Qty: 10 0RF Referrals Follow up/Referrals: Bernard Sommer MD [Primary Care Provider] - See instructions Clinical Impressions Clinical Impression: Acute exacerbation of chronic obstructive pulmonary disease, Influenza, Hypoxic respiratory failure Print Language Print Language: Bengali Discharge ED Provider: Johnny Vargas General Adult HPI General Chief complaint: Shortness of Breath/Dyspnea Stated complaint: Cough SOA Flu+ Time Seen by Provider: 12/12/24 09:12 Mode of Arrival: Wheelchair Source of Information: Patient Description of Symptoms (Recalled from ER Triage Doc. by RN): Patient reports recent diagnosis of flu and has had continued with SOA. States it got worse last night and that she has not been able to rest. History of Present Illness HPI narrative: Patient is an 79-year-old female who is chronically immunosuppressed on Humira treating her rheumatoid arthritis who presents today with increasing cough shortness of breath chest discomfort after recent diagnosis of the flu. She was started on Tamiflu steroids and had some breathing treatments with some improvement at home but symptoms are only worsening. She is now in respiratory distress which is not her baseline she does not wear oxygen at home. Related Data Home Medications ?Medication ?Instructions ?Recorded ?Confirmed acetaminophen 325 mg tablet 650 mg PO Q6H PRN Pain 06/20/24 12/07/24 adalimumab 40 mg/0.8 mL mg SQ 11/16/24 12/07/24 subcutaneous pen kit (Humira Pen) Previous Rx's ?Medication ?Instructions ?Recorded diltiazem HCl 120 mg 120 mg PO DAILY #30 caps 07/07/24 capsule,extended release 24 hr citalopram 20 mg tablet 20 mg PO DAILY 90 days #90 tabs 10/17/24 apixaban 5 mg tablet (Eliquis) 5 mg PO BID #30 tabs 11/07/24 umeclidinium 62.5 mcg-vilanterol 1 inh inhalation DAILY 90 days 11/14/24 25 mcg/actuation powdr for #180 ea inhalation (Anoro Ellipta) azithromycin 250 mg tablet See Rx Instructions PO .COMPLEX #6 12/07/24 (Zithromax Z-Salazar) tabs benzonatate 100 mg capsule 100 mg PO BID PRN cough #20 caps 12/07/24 oseltamivir 75 mg capsule 75 mg PO BID 5 days #10 caps 12/07/24 prednisone 20 mg tablet 20 mg PO BID #10 tabs 12/07/24 Allergies Allergy/AdvReac Type Severity Reaction Status Date / Time Penicillins Allergy sore mouth Verified 12/07/24 09:06 [facility] Disclaimer: The information contained in this section may have been updated after the patient was seen, as this information can be updated by other users. Medical History History of rheumatoid arthritis COPD mixed type Multiple lung nodules on CT History of smoking 30 or more pack years Pulmonary emphysema Tobacco dependence in remission B12 deficiency Rheumatoid arthritis Urinary tract infection Uterine fibroid Menopause Irritable bowel syndrome (IBS) History of gastroesophageal reflux (GERD) Palpitations Carotid bruit Former smoker COPD (chronic obstructive pulmonary disease) Surgical History History of hemorrhoidectomy History of cholecystectomy History of hysterectomy History of tonsillectomy Family History Mother Cancer Father Coronary artery disease Social History Smoking Status: Former smoker smoking status stop date: 1985 alcohol intake: former substance use type: denies use current occupational status: retired Travel in the last 8 weeks: None household members: friend(s) housing: house Have you lived/traveled outside US in past 30 days?: No Contact w/someone who lives/traveled outside US past 30 days?: No Exposure to someone with infectious disease in past 14 days?: No Do you have a fever (greater than 100.4 F or 38 C)?: No Have you tested positive for COVID-19: No Exposed to someone with COVID-19 in past 14 days?: No Do you have a sore throat?: No Do you have a cough?: Yes Do you have any weakness?: No Do you have any diarrhea?: No Are you experiencing any unusual bleeding?: No Do you have any muscle aches/pain?: No Do you have any abdominal pain?: No Are you experiencing loss of taste or smell?: No Other Medical History Have you received the Flu Vaccine for this season: No Have you received the Pneumonia Vaccine: Yes ROS Obtained: Yes All systems reviewed & no additional complaints except as documented Physical Exam General General appearance: in distress (Respiratory distress upon entering the room oxygen saturations in the upper 80s on room air) Respiratory Respiratory exam: Present other (Diffuse expiratory wheezing prolonged expiratory phase using accessory muscles and speaking in fragmented sentences oxygen saturations in the upper 80s) Cardiovascular Cardiovascular exam: Present tachycardia Neurological Exam Neurological exam: Present alert and oriented X3 Medical Decision Making Medical Records Screening: Per USPSTF and CDC recommendations, given the prevalence of disease in our region, it is our hospital?s policy to screen for HIV and viral Hepatitis for all patients aged 18 and over and those with ongoing risk factors. Rk Inquiry Pt receiving controlled substance: No Vital Signs: 12/12/24 08:34 12/12/24 09:12 12/12/24 09:30 Temperature 97.9 F Temperature Source Oral Pulse Rate 71 76 Pulse Rate [Radial] 81 Respiratory Rate 24 Blood Pressure 114/72 120/81 Blood Pressure [Right Arm] 136/68 Blood Pressure Mean 94 Blood Pressure Mean [Right Arm] 90 Blood Pressure Source [Right Arm] Automatic Cuff Blood Pressure Position [Right Arm] Sitting 02 Sat by Pulse Oximetry 91 L 92 L 91 L Oxygen Delivery Method Room Air 12/12/24 10:00 12/12/24 10:30 Temperature Temperature Source Pulse Rate 83 79 Pulse Rate [Radial] Respiratory Rate Blood Pressure 96/65 L 113/78 Blood Pressure [Right Arm] Blood Pressure Mean 80 89 Blood Pressure Mean [Right Arm] Blood Pressure Source [Right Arm] Blood Pressure Position [Right Arm] 02 Sat by Pulse Oximetry 92 L 90 L Oxygen Delivery Method Lab Data Lab results reviewed: Yes I reviewed the patient's lab results. Lab Results 12/12/24 09:24: VBG pH 7.47 H, VBG pCO2 31.5 L, VBG pO2 45.3 H, VBG HCO3 22.2 L, VBG Total CO2 23.1, VBG O2 Saturation 83.0 H, VBG Base Excess -1.6, VBG Lactic Acid 1.3 12/12/24 09:35: WBC 12.3 H, RBC 4.17 L, Hgb 13.8, Hct 40.7, MCV 97.6, MCH 33.1 H, MCHC 33.9, RDW 12.1, Plt Count 230, MPV 10.0, Neut % (Auto) 86.8 H, Lymph % (Auto) 8.2 L, [place] % (Auto) 4.6, Eos % (Auto) 0.0 L, Baso % (Auto) 0.1, Neut # (Auto) 10.7 H, Lymph # (Auto) 1.0, [place] # (Auto) 0.6, Eos # (Auto) 0.0, Baso # (Auto) 0.0, D-Dimer 0.72 H, Sodium 135 L, Potassium 3.6, Chloride 104, Carbon Dioxide 29, Anion Gap 5.6, BUN 15, Creatinine 0.60, Estimated Creat Clear 54, Estimated GFR 96, Est GFR ( Amer) 116, Glucose 130 H, Calcium 9.0, Total Bilirubin 0.3, AST 33, ALT 28, Alkaline Phosphatase 113, Troponin I 0.01, NT-Pro-B Natriuret Pep 420, Total Protein 6.3, Albumin 3.5, Globulin 2.8, Albumin/Globulin Ratio 1.3 12/12/24 09:40: Chlamy pneumoniae PCR Not detected, Adenovirus (PCR) Not detected, B. pertussis DNA (PCR) Not detected, Coronavirus OC43 (PCR) Not detected, Coronavirus HKU1 (PCR) Not detected, Coronavirus 229E (PCR) Not detected, SARS-CoV-2 (PCR) Not detected, Coronavirus NL63 (PCR) Not detected, Human Metapneumovir PCR Not detected, Influenza A (H1) PCR Not detected, Influ A (H1N1/09) PCR Not detected, Influenza A (H3) PCR Not detected, Influenza Type A (PCR) Not detected, Influenza Type B (PCR) Not detected, M. pneumoniae (PCR) Not detected, Parainfluenza 1 (PCR) Not detected, Parainfluenza 2 (PCR) Not detected, Parainfluenza 3 (PCR) Not detected, Parainfluenza 4 (PCR) Not detected, RSV (PCR) Not detected, Entero/Rhino (PCR) Not detected 12/12/24 09:35 12/12/24 09:35 Orders (Tests/Meds): ED MEDICATIONS Discontinued Medications Generic Name Dose Route Start Last Admin Trade Name Freq PRN Reason Stop Dose Admin Albuterol/Ipratropium 3 ml 12/12/24 09:23 12/12/24 09:42 Ipratropium/Albuterol 3 Ml Neb IH 12/12/24 09:24 3 ml ONCE ONE Administration Lactated Ringer's 500 mls @ 999 mls/hr 12/12/24 09:30 12/12/24 09:41 Lactated Ringer's 1000 Ml Bag IV 12/12/24 10:00 999 mls/hr .Q31M NO Administration Magnesium Sulfate 2 gm in 50 mls @ 50 mls/hr 12/12/24 09:23 12/12/24 09:41 Magnesium Sulfate 2gm/50ml Premix IV 12/12/24 10:22 50 mls/hr ONCE ONE Administration Methylprednisolone Sodium Succinate 125 mg 12/12/24 09:23 12/12/24 09:41 Methylprednisolone Sod Succ 125mg Vial IV 12/12/24 09:24 125 mg ONCE ONE Administration ORDERS Category Date Time Status CXR --portable [XR chest portable] Stat Exams 12/12/24 09:23 Completed BNP [NT Pro Brain Natriuretic Pep.] Stat Lab 12/12/24 09:35 Completed CBC w/Auto Diff [Complete Blood Count Auto Diff] Stat Lab 12/12/24 09:35 Completed CMP [Comprehensive Metabolic Panel] Stat Lab 12/12/24 09:35 Completed D-Dimer Stat Lab 12/12/24 09:35 Completed Full Resp Panel w/COVID ([facility]) Routine Lab 12/12/24 09:40 Completed Lactate Venous Stat Lab 12/12/24 09:23 Ordered Trop I [Troponin I] Stat Lab 12/12/24 09:35 Completed Troponin I Q3H Lab 12/12/24 12:30 Ordered Troponin I Q3H Lab 12/12/24 15:30 Ordered Blood Culture Stat Micro 12/12/24 09:35 Received Venous Blood Gas Stat RT 12/12/24 09:24 Completed Medical Decision Narrative: Immune suppressed 79-year-old female recent diagnosis of influenza without significant improvement with outpatient intervention presents today with COPD exacerbation superimposed on this influenza diagnosis. Is possible she has a bacterial infection at this point as well. The [facility] did start her on azithromycin without any improvement as well. Will get a chest x-ray blood cultures full respiratory panel therapeutic interventions for her COPD and will reassess. Chest x-ray performed I personally interpreted which shows no evidence of an acute cardiopulmonary emergency or consolidation. Reassessment clinically patient appears much better however she has ongoing hypoxic respiratory failure with new oxygen requirement oxygen saturations with a good waveform on my last reassessment was 85 to 86%. She was placed on 2 L nasal cannula with improvement in her oxygenation. But from a work of breathing standpoint she is much improved. No longer in significant respiratory distress. However she will require admission/observation for ongoing management and potentially go home on oxygen supplementation or to wean off her oxygen. Discussed with hospital medicine who agreed to admit the patient for further management. Critical Care Critical Care Time Critical Care Time: Yes Attestation: On 12/12/24, the high probability of a clinically significant, sudden or life threatening deterioration of the following system(s) required my full and direct attention, intervention and personal management. The time I documented below is in addition to time spent performing reported procedures but includes the following listed in this critical care notation. Total Time Total Critical Care Time: 35
[2024-12-12] MEDS: MAGNESIUM SULFATE IN WATER 2 GM/50 ML PIGGYBACK IV (09:41)
[2024-12-12] MEDS: METHYLPREDNISOLONE SOD SUCC 125MG VIAL 125 MG IV (09:41)
[2024-12-12] MEDS: LACTATED RINGERS 1000ML 500 ML 999 ML IV (09:41)
[2024-12-12] MEDS: IPRATROPIUM/ALBUTEROL 3 ML NEB IH ×3 (09:42→22:07)
[2024-12-12 09:44] LABS: Adenovirus,PCR Not Detected (NotDetected); Bordetella Pertussis Not Detected (NotDetected); Chlamydophila Pneumoniae, PCR Not Detected (NotDetected); Coronavirus 19, PCR Not Detected (NotDetected); Coronavirus 229E Not Detected (NotDetected); Coronavirus NL63 Not Detected (NotDetected); Coronavirus OC43 Not Detected (NotDetected); Coronovirus HKU1,PCR Not Detected (NotDetected); Human Metapneumovirus Not Detected (NotDetected); Influenza A, PCR Not Detected (NotDetected); Influenza AH1, 2009 Not Detected (NotDetected); Influenza AH1, PCR Not Detected (NotDetected); Influenza AH3,PCR Not Detected (NotDetected); Influenza B, PCR Not Detected (NotDetected); Mycoplasma Pneumoniae, PCR Not Detected (NotDetected); Parainfluenza 1, PCR Not Detected (NotDetected); Parainfluenza 2, PCR Not Detected (NotDetected); Parainfluenza 3, PCR Not Detected (NotDetected); Parainfluenza 4, PCR Not Detected (NotDetected); Respiratory Syncytial Virus Not Detected (NotDetected); Rhinovirus/Enterovirus Not Detected (NotDetected)
[2024-12-12 09:45] LABS: Lactate Venous 1.3 mmol/L (0.4-2.0); VBG Base Excess -1.6 mmol/L (-2.4-2.3); VBG HCO3 22.2 mmol/L (23-30); VBG PCO2 31.5 mmol/L (35-51); VBG PH 7.47 mmol/L (7.31-7.41); VBG PO2 45.3 mmol/L (28-40); VBG Total CO2 23.1 mmol/L (23-27)
--- NOTE | 2024-12-12 09:45 | ECG_ITS ---
APPROVED REPORT Exam: Resting ECG HR:84 bpm ECG Measurements Heart Rate 84 AXES QRSd 82 QRS 56 QT 359 T 70 QTc 399 Conclusion ATRIAL FIBRILLATION INDETERMINATE AXIS ABNORMAL RHYTHM ECG UNCONFIRMED REPORT Electronically signed by : Sreedhar Vargas, 12/12/2024 15:34:43
[2024-12-12 09:47] LABS: Basophils % 0.1 % (0.1-2.0); Hematocrit 40.7 % (37.0-47.0); Hemoglobin 13.8 g/dL (12.2-16.2); Lymphocytes % 8.2 % (10-50); Mean Corpuscular HGB Conc 33.9 g/dL (31.8-35.4); Mean Corpuscular Hemoglobin 33.1 pg (27.0-31.2); Mean Corpuscular Volume 97.6 fl (81-99); Monocytes # 0.6 K/mm3 (0.1-1.0); Monocytes % 4.6 % (1.7-9.3); Neutrophils # 10.7 K/mm3 (1.8-7.8); Neutrophils % 86.8 % (37.0-80.0); Platelet Count 230 K/mm3 (142-424); Red Blood Count 4.17 M/mm3 (4.20-5.40); Red Cell Distribution Width 12.1 % (11.5-17.5); White Blood Count 12.3 K/mm3 (4.8-10.8)
[2024-12-12 09:58] LABS: Alanine Aminotransferase 28 U/L (12-78); Albumin Level 3.5 g/dl (3.5-5.0); Albumin/Globulin Ratio 1.3 (1.1-1.8); Alkaline Phosphatase 113 U/L (38-126); Anion Gap 5.6 mEq/L (5-15); Aspartate Amino Transferase 33 U/L (14-36); Bilirubin,Total 0.3 mg/dl (0.2-1.3); Blood Urea Nitrogen 15 mg/dl (7-17); Carbon Dioxide 29 mmol/L (22.0-30.0); Chloride 104 mmol/L (98-107); Creatinine Clearance Estimated 54 mL/min (50-200); Estimated Glomerular Filt Rate 96 ml/min (>60); GFR (African American) 116 ML/MIN (>60); Globulin 2.8 g/dL (1.3-3.2); Glucose 130 mg/dl (74-100); Potassium 3.6 mmoL/L (3.5-5.1); Sodium 135 mmol/L (136-145); Total Protein,Serum 6.3 g/dl (6.3-8.2)
[2024-12-12 10:02] LABS: D-Dimer 0.72 ug/mL (0.0-0.5)
[2024-12-12 10:11] LABS: NT Pro Brain Natriuretic Pep. 420 pg/mL (0-450)
[2024-12-12 10:12] LABS: Troponin I 0.01 ng/ml (0.00-0.034)
--- NOTE | 2024-12-12 11:06 | PC.NURSE ---
DR NG SPEAKING WITH HOSPITALIST FOR ADMISSION
--- NOTE | 2024-12-12 11:09 | PC.NURSE ---
SIZE PAINTER NOTIFIED OF ADMISSION
--- NOTE | 2024-12-12 11:20 | HMH.PHAINT1 ---
Pharmacy Intervention Comments: MEDICATION RECONCILIATION COMPLETED ON PATIENT USING EXTERNAL FILL HISTORY FROM PHARMACY AND LIST FROM CARDIOLOGY OFFICE. -WILLI JAMES, ANGIED
--- NOTE | 2024-12-12 11:25 | PC.NURSE ---
Report called to BRUCE Nielsen on Med Surg.
--- NOTE | 2024-12-12 12:15 | EXP.HP ---
History of Present Illness *Admission Date: 12/12/24 *Reason for visit:: Shortness of breath *History of present illness: Delmy Patel is a 79-year-old female with a medical history significant for COPD on room air, rheumatoid arthritis, paroxysmal A-fib who presents with progressive shortness of breath. Patient states she tested positive for the flu on 12/07/2024 and is being treated with Tamiflu and prednisone but unfortunately her shortness of breath became progressively worse. Endorses a productive cough, but denies chest pain. On arrival, she was hypoxic to 88% and she was requiring new oxygen requirement of 2 L. She had restricted airway which somewhat improved with DuoNeb continues to have increased work of breathing on 2 L. Full respiratory panel in the ED normal. VBG reassuring. CXR without acute findings. Case discussed with ED provider and decision was made to admit patient for acute hypoxic respiratory failure secondary to COPD exacerbation. [facility] Disclaimer: The information contained in this section may have been updated after the patient was seen, as this information can be updated by other users. Medical History (Updated 12/12/24 @ 15:31 by Adelfo Vázquez MD) Bronchiolitis Pneumonia Atrial fibrillation History of rheumatoid arthritis COPD mixed type Multiple lung nodules on CT History of smoking 30 or more pack years Pulmonary emphysema Tobacco dependence in remission B12 deficiency Rheumatoid arthritis Urinary tract infection Uterine fibroid Menopause Irritable bowel syndrome (IBS) History of gastroesophageal reflux (GERD) Palpitations Carotid bruit Former smoker COPD (chronic obstructive pulmonary disease) Surgical History History of hemorrhoidectomy History of cholecystectomy History of hysterectomy History of tonsillectomy Family History Mother Cancer Father Coronary artery disease Social History (Updated 12/12/24 @ 12:36 by Piper Porter RN) Smoking Status: Former smoker smoking status stop date: 1984 alcohol intake: former substance use type: denies use current occupational status: retired Travel in the last 8 weeks: None household members: friend(s) housing: house Have you lived/traveled outside US in past 30 days?: No Contact w/someone who lives/traveled outside US past 30 days?: No Exposure to someone with infectious disease in past 14 days?: No Do you have a fever (greater than 100.4 F or 38 C)?: No Have you tested positive for COVID-19: No Exposed to someone with COVID-19 in past 14 days?: No Do you have a sore throat?: No Do you have a cough?: Yes Do you have any weakness?: No Are you experiencing any nausea/vomitting?: No Do you have any diarrhea?: No Are you experiencing any unusual bleeding?: No Do you have any muscle aches/pain?: No Do you have any abdominal pain?: No Are you experiencing loss of taste or smell?: No Other Medical History Have you received the Flu Vaccine for this season: No Have you received the Pneumonia Vaccine: Yes Meds Home Medications and Allergies Home Medications ?Medication ?Instructions ?Recorded ?Confirmed ?Type diltiazem HCl 120 mg 120 mg PO DAILY #30 caps 07/07/24 12/12/24 Rx capsule,extended release 24 hr citalopram 20 mg tablet 20 mg PO DAILY 90 days #90 tabs 10/17/24 12/12/24 Rx apixaban 5 mg tablet (Eliquis) 5 mg PO BID #30 tabs 11/07/24 12/12/24 Rx umeclidinium 62.5 mcg-vilanterol 1 inh inhalation DAILY 90 days 11/14/24 12/12/24 Rx 25 mcg/actuation powdr for #180 ea inhalation (Anoro Ellipta) adalimumab 40 mg/0.8 mL 40 mg SQ WEEKLY 11/16/24 12/12/24 History subcutaneous pen kit (Humira Pen) benzonatate 100 mg capsule 100 mg PO BIDP PRN cough 12/12/24 12/12/24 History New Prescriptions to Start Prescriptions: Allergies Allergy/AdvReac Type Severity Reaction Status Date / Time Penicillins Allergy sore mouth Verified 12/07/24 09:06 Exam Data for Last 24 hours Vital signs and Labs for Last 24 Hours: Temp Pulse Resp BP Pulse Ox O2 Del Method O2 Flow Rate 98.4 F 77 22 126/68 90 L Nasal Cannula 2 12/12/24 11:47 12/12/24 11:47 12/12/24 11:47 12/12/24 11:47 12/12/24 10:30 12/12/24 11:47 12/12/24 11:47 Laboratory Results - last 24 hr 03/03/25 09:24: VBG pH 7.47 H, VBG pCO2 31.5 L, VBG pO2 45.3 H, VBG HCO3 22.2 L, VBG Total CO2 23.1, VBG O2 Saturation 83.0 H, VBG Base Excess -1.6, VBG Lactic Acid 1.3 12/12/24 09:35: WBC 12.3 H, RBC 4.17 L, Hgb 13.8, Hct 40.7, MCV 97.6, MCH 33.1 H, MCHC 33.9, RDW 12.1, Plt Count 230, MPV 10.0, Neut % (Auto) 86.8 H, Lymph % (Auto) 8.2 L, [place] % (Auto) 4.6, Eos % (Auto) 0.0 L, Baso % (Auto) 0.1, Neut # (Auto) 10.7 H, Lymph # (Auto) 1.0, [place] # (Auto) 0.6, Eos # (Auto) 0.0, Baso # (Auto) 0.0, D-Dimer 0.72 H, Sodium 135 L, Potassium 3.6, Chloride 104, Carbon Dioxide 29, Anion Gap 5.6, BUN 15, Creatinine 0.60, Estimated Creat Clear 54, Estimated GFR 96, Est GFR ( Amer) 116, Glucose 130 H, Calcium 9.0, Total Bilirubin 0.3, AST 33, ALT 28, Alkaline Phosphatase 113, Troponin I 0.01, NT-Pro-B Natriuret Pep 420, Total Protein 6.3, Albumin 3.5, Globulin 2.8, Albumin/Globulin Ratio 1.3 12/12/24 09:40: Chlamy pneumoniae PCR Not detected, Adenovirus (PCR) Not detected, B. pertussis DNA (PCR) Not detected, Coronavirus OC43 (PCR) Not detected, Coronavirus HKU1 (PCR) Not detected, Coronavirus 229E (PCR) Not detected, SARS-CoV-2 (PCR) Not detected, Coronavirus NL63 (PCR) Not detected, Human Metapneumovir PCR Not detected, Influenza A (H1) PCR Not detected, Influ A (H1N1/09) PCR Not detected, Influenza A (H3) PCR Not detected, Influenza Type A (PCR) Not detected, Influenza Type B (PCR) Not detected, M. pneumoniae (PCR) Not detected, Parainfluenza 1 (PCR) Not detected, Parainfluenza 2 (PCR) Not detected, Parainfluenza 3 (PCR) Not detected, Parainfluenza 4 (PCR) Not detected, RSV (PCR) Not detected, Entero/Rhino (PCR) Not detected I & O for Last 24 hours: Intake & Output 12/09/24 12/10/24 12/11/24 12/12/24 23:59 23:59 23:59 23:59 Weight 77.111 kg Constitutional Constitutional: no acute distress *Routine HEENT Exam Head: Present normocephalic Eye: Present EOMI and PERRL ENT: Present mucous membranes moist *Routine Neck Exam Neck: Present supple; Absent lymphadenopathy *Routine Respiratory Exam Respiratory: Present wheezes and diminished air movement; Absent CTA bilaterally *Routine Cardiovascular Exam Cardiovascular: Present RRR *Routine Abdominal Exam Abdominal: Present soft and normoactive bowel sounds; Absent tenderness *Routine Rectal Exam Rectal:: deferred *Routine Genitalia Exam Genitalia:: deferred *Routine Extremities Exam Extremities: Absent cyanosis, clubbing or edema *Routine Skin Exam Skin: Present warm; Absent rash *Routine Neurological Exam Neurological: Present alert and oriented X3 Assessment and Plan *Assessment and plan (1) Hypoxic respiratory failure: Status: Acute Category: Medical Code(s): J96.91 - Respiratory failure, unspecified with hypoxia (2) Acute exacerbation of chronic obstructive pulmonary disease: Status: Acute Category: Medical Code(s): J44.1 - Chronic obstructive pulmonary disease with (acute) exacerbation Plan Delmy Patel is a 79-year-old female with a medical history significant for COPD on room air, rheumatoid arthritis, paroxysmal A-fib who presents with progressive shortness of breath. Patient states she tested positive for the flu on 12/07/2024 and is being treated with Tamiflu and prednisone but unfortunately her shortness of breath became progressively worse. Endorses a productive cough, but denies chest pain. On arrival, she was hypoxic to 88% and she was requiring new oxygen requirement of 2 L. She had restricted airway which somewhat improved with DuoNeb continues to have increased work of breathing on 2 L. Full respiratory panel in the ED normal. VBG reassuring. CXR without acute findings. Case discussed with ED provider and decision was made to admit patient for acute hypoxic respiratory failure secondary to COPD exacerbation. 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 Progressive shortness of breath after testing positive for influenza. Finished course of prednisone and Tamiflu. ? Continues to have increased work of breathing with moderately restricted airways. ? CTA without acute findings. No PE. Full respiratory panel negative. ? Patient has longstanding history of rheumatoid arthritis, likely has underlying RA?ILD which will make treatment more challenging. ? Continue DuoNebs every 4 hours, Pulmicort twice daily. ? Continue Solu-Medrol 40 mg twice daily. ? Started levofloxacin 750 mg daily day 10/16. ? Discussed with pulmonology, assisting with care as above. ? Hold home Humira, Plaquenil for RA at this time. #CT evidence of pancreatitis ? At this time patient denies abdominal pain, follow-up lipase. #A-fib ? Currently rate controlled. ? Continue home diltiazem, Eliquis. #Anxiety/depression ? Continue home citalopram. Full code DVT prophylaxis: Eliquis
--- NOTE | 2024-12-12 12:55 | EXP.PULM.CON ---
History of Present Illness History of present illness: Ms. oRjas is a 79-year-old female greater than [id number] smoking/smoked greater than 20 years ago history of rheumatoid arthritis previously on Plaquenil, recently started on Humira presented today with worsening respiratory distress. Patient presented to the urgent care center, diagnosed with influenza pneumonia 12/07/2024, completed course of Tamiflu. Patient admits gradually worsening respiratory symptoms for the last 2 days. Her symptoms are worse now than she was diagnosed with influenza pneumonia [facility] Disclaimer: The information contained in this section may have been updated after the patient was seen, as this information can be updated by other users. Medical History (Updated 12/12/24 @ 15:31 by Adelfo Vázquez MD) Bronchiolitis Pneumonia Atrial fibrillation History of rheumatoid arthritis COPD mixed type Multiple lung nodules on CT History of smoking 30 or more pack years Pulmonary emphysema Tobacco dependence in remission B12 deficiency Rheumatoid arthritis Urinary tract infection Uterine fibroid Menopause Irritable bowel syndrome (IBS) History of gastroesophageal reflux (GERD) Palpitations Carotid bruit Former smoker COPD (chronic obstructive pulmonary disease) Surgical History History of hemorrhoidectomy History of cholecystectomy History of hysterectomy History of tonsillectomy Family History Mother Cancer Father Coronary artery disease Social History (Updated 12/12/24 @ 12:36 by Piper oPrter RN) Smoking Status: Former smoker smoking status stop date: 1984 alcohol intake: former substance use type: denies use current occupational status: retired Travel in the last 8 weeks: None household members: friend(s) housing: house Have you lived/traveled outside [place] in past 30 days?: No Contact w/someone who lives/traveled outside [place] past 30 days?: No Exposure to someone with infectious disease in past 14 days?: No Do you have a fever (greater than 100.4 F or 38 C)?: No Have you tested positive for COVID-19: No Exposed to someone with COVID-19 in past 14 days?: No Do you have a sore throat?: No Do you have a cough?: Yes Do you have any weakness?: No Are you experiencing any nausea/vomitting?: No Do you have any diarrhea?: No Are you experiencing any unusual bleeding?: No Do you have any muscle aches/pain?: No Do you have any abdominal pain?: No Are you experiencing loss of taste or smell?: No Review of Systems Constitutional Constitutional: Reports anorexia, Reports body ache(s) and Reports fatigue Eyes Eyes: Denies eye discharge, Denies dry eyes, Denies irritation and Denies itchy eyes ENT Ears, Nose, Mouth, and Throat: Denies epistaxis, Denies facial pain, Denies lip swelling and Denies throat swelling *Cardiovascular Cardiovascular: Reports dyspnea and Reports dyspnea on exertion *Respiratory Respiratory: Reports change in phlegm color, Reports chest congestion, Reports cough, Reports dyspnea, Reports dyspnea on exertion, Reports excessive phlegm production and Reports wheezing *Gastrointestinal Gastrointestinal: Denies abdominal pain, Denies belching and Denies cramping *Musculoskeletal Musculoskeletal: Reports back pain, Reports myalgias and Reports other (No small joint swelling or Pain) Psychiatric Psychiatric: Denies homicidal ideation and Denies suicidal ideation Endocrine Endocrine: Reports fatigue and Denies heat intolerance Hematologic/Lymphatic Hematologic/Lymphatic: Denies easy bleeding and Denies lymphadenopathy Allergic/Immunologic Allergic/Immunologic: Denies itchy eyes, Denies lip swelling, Denies throat swelling and Reports wheezing Pulmonology Exam Inpatient Vital signs and Labs for Last 24 Hours: Temp Pulse Resp BP Pulse Ox O2 Del Method O2 Flow Rate 98.4 F 70 18 126/81 95 Nasal Cannula 2 12/12/24 11:47 12/12/24 11:48 12/12/24 11:48 12/12/24 11:48 12/12/24 11:48 12/12/24 11:48 12/12/24 11:48 Laboratory Results - last 24 hr 12/12/24 09:24: VBG pH 7.47 H, VBG pCO2 31.5 L, VBG pO2 45.3 H, VBG HCO3 22.2 L, VBG Total CO2 23.1, VBG O2 Saturation 83.0 H, VBG Base Excess -1.6, VBG Lactic Acid 1.3 12/12/24 09:35: WBC 12.3 H, RBC 4.17 L, Hgb 13.8, Hct 40.7, MCV 97.6, MCH 33.1 H, MCHC 33.9, RDW 12.1, Plt Count 230, MPV 10.0, Neut % (Auto) 86.8 H, Lymph % (Auto) 8.2 L, [place] % (Auto) 4.6, Eos % (Auto) 0.0 L, Baso % (Auto) 0.1, Neut # (Auto) 10.7 H, Lymph # (Auto) 1.0, [place] # (Auto) 0.6, Eos # (Auto) 0.0, Baso # (Auto) 0.0, D-Dimer 0.72 H, Sodium 135 L, Potassium 3.6, Chloride 104, Carbon Dioxide 29, Anion Gap 5.6, BUN 15, Creatinine 0.60, Estimated Creat Clear 54, Estimated GFR 96, Est GFR ( Amer) 116, Glucose 130 H, Calcium 9.0, Total Bilirubin 0.3, AST 33, ALT 28, Alkaline Phosphatase 113, Troponin I 0.01, NT-Pro-B Natriuret Pep 420, Total Protein 6.3, Albumin 3.5, Globulin 2.8, Albumin/Globulin Ratio 1.3 12/12/24 09:40: Chlamy pneumoniae PCR Not detected, Adenovirus (PCR) Not detected, B. pertussis DNA (PCR) Not detected, Coronavirus OC43 (PCR) Not detected, Coronavirus HKU1 (PCR) Not detected, Coronavirus 229E (PCR) Not detected, SARS-CoV-2 (PCR) Not detected, Coronavirus NL63 (PCR) Not detected, Human Metapneumovir PCR Not detected, Influenza A (H1) PCR Not detected, Influ A (H1N1/09) PCR Not detected, Influenza A (H3) PCR Not detected, Influenza Type A (PCR) Not detected, Influenza Type B (PCR) Not detected, M. pneumoniae (PCR) Not detected, Parainfluenza 1 (PCR) Not detected, Parainfluenza 2 (PCR) Not detected, Parainfluenza 3 (PCR) Not detected, Parainfluenza 4 (PCR) Not detected, RSV (PCR) Not detected, Entero/Rhino (PCR) Not detected I & O for Labs for Last 24 Hours: Intake & Output 12/09/24 12/10/24 12/11/24 12/12/24 23:59 23:59 23:59 23:59 Weight 166 lb Constitutional: Present moderate distress Head: Present normocephalic and atraumatic ENT: Present normal exam, normal oropharynx and mucous membranes moist Neck: Present normal inspection and full ROM Respiratory: Present respiratory distress, wheezes, crackles and diminished air movement; Absent able to speak in complete sentences Cardiac: Present S1/S2, Tachycardia and radial pulses present GI: Present soft and distention; Absent tenderness or guarding Rectal (female): Present deferred (female): Present deferred Skin: Present intact; Absent cyanosis or jaundice Neuro: Present alert, awake and oriented x 3 Extremities: Present normal inspection; Absent clubbing or cyanosis Psychiatric: Present normal affect and cooperative Meds Home Medications and Allergies Home Medications ?Medication ?Instructions ?Recorded ?Confirmed ?Type diltiazem HCl 120 mg 120 mg PO DAILY #30 caps 07/07/24 12/12/24 Rx capsule,extended release 24 hr citalopram 20 mg tablet 20 mg PO DAILY 90 days #90 tabs 10/17/24 12/12/24 Rx apixaban 5 mg tablet (Eliquis) 5 mg PO BID #30 tabs 11/07/24 12/12/24 Rx umeclidinium 62.5 mcg-vilanterol 1 inh inhalation DAILY 90 days 11/14/24 12/12/24 Rx 25 mcg/actuation powdr for #180 ea inhalation (Anoro Ellipta) adalimumab 40 mg/0.8 mL 40 mg SQ WEEKLY 11/16/24 12/12/24 History subcutaneous pen kit (Humira Pen) benzonatate 100 mg capsule 100 mg PO BIDP PRN cough 12/12/24 12/12/24 History New Prescriptions to Start Prescriptions: Allergies Allergy/AdvReac Type Severity Reaction Status Date / Time Penicillins Allergy sore mouth Verified 12/07/24 09:06 Results Laboratory Findings 12/12/24 09:35 12/12/24 09:35 PT/INR, D-dimer D-Dimer 0.72 ug/mL (0.0-0.5) H 12/12/24 09:35 Abnormal lab findings: Abnormal Labs 12/12/24 12/12/24 09:24 09:35 WBC 12.3 H RBC 4.17 L MCH 33.1 H Neut % (Auto) 86.8 H Lymph % (Auto) 8.2 L Eos % (Auto) 0.0 L Neut # (Auto) 10.7 H D-Dimer 0.72 H VBG pH 7.47 H VBG pCO2 31.5 L VBG pO2 45.3 H VBG HCO3 22.2 L VBG O2 Saturation 83.0 H Sodium 135 L Glucose 130 H Assessment and Plan *Assessment and plan (1) Acute exacerbation of chronic obstructive pulmonary disease: Status: Acute Category: Medical Code(s): J44.1 - Chronic obstructive pulmonary disease with (acute) exacerbation (2) Pneumonia: Status: Acute Category: Medical Code(s): J18.9 - Pneumonia, unspecified organism (3) Bronchiolitis: Status: Acute Category: Medical Code(s): J21.9 - Acute bronchiolitis, unspecified Plan Ms. Rojas is a 79-year-old female greater than [id number] smoking/smoked greater than 20 years ago history of rheumatoid arthritis previously on Plaquenil, recently started on Humira presented today with worsening respiratory distress. Patient presented to the urgent care center, diagnosed with influenza pneumonia 12/07/2024, completed course of Tamiflu. Patient admits gradually worsening respiratory symptoms for the last 2 days. Her symptoms are worse now than she was diagnosed with influenza pneumonia Mild neutrophilic prominent leukocytosis upon admission. Afebrile. Hemodynamically stable. Blood gas upon admission respiratory alkalosis. D-dimer elevated at 0.72 Chest x-ray upon admission, upper lobe predominant emphysematous changes. No dense consolidative/airspace changes noted. CTA no evidence of pulmonary embolism. No dense consolidative/airspace changes. Concern for bronchiolitis in the lower lobes. Appeared to be in severe respiratory distress. Bilateral diffuse wheezing noted. Plan: Continue oxygen supplementation to maintain O2 saturation goal of 90% and above [place] every 4 hours along with Pulmicort every 12 scheduled Continue methylprednisolone 40 mg every 12 hours, wean as tolerated Initial levofloxacin 750 mg daily. Recommend to monitor QTc Evaluation for possible pancreatitis as per primary team
--- NOTE | 2024-12-12 13:25 | CT_ITS ---
FINAL REPORT TECHNIQUE: Thin section axial CT with contrast with multiplanar reconstruction This study was performed with techniques to keep radiation doses as low as reasonably achievable, (ALARA). Individualized dose reduction techniques using automated exposure control or adjustment of mA and/or kV according to the patient's size were employed. CLINICAL HISTORY: Hypoxia COMPARISON: None FINDINGS: Pulmonary vessels enhance in normal fashion without evidence of embolism. Thoracic aorta shows no dissection or aneurysm. There are fine nodular densities in the right lower lobe best seen on axial images #27 through 44. The appearance is consistent with mild bronchiolitis. Changes of emphysema are present. There is scarring present in the right upper lobe. There is no significant pleural effusion. There is no significant pericardial effusion. No mediastinal or hilar adenopathy is present. Views extending into the upper abdomen reveal stranding surrounding the pancreas, which is new since the prior exam, worrisome for pancreatitis. IMPRESSION: 1. No evidence of pulmonary embolism 2. Fine nodular densities right lower lobe consistent with mild bronchiolitis. 3. Images of the upper abdomen suggest stranding surrounding the pancreas may represent pancreatitis. Correlate with lab values for further evaluation. Reviewed, Interpreted and Dictated by Suni Davenport MD Transcribed by Meg Johnson Authenticated and [facility]
[2024-12-12 13:29] LABS: Troponin I < 0.01 ng/ml (0.00-0.034)
[2024-12-12] MEDS: SODIUM CHLORIDE 0.9% 10ML SYR (RAD ONLY) 10 ML IV (13:51)
[2024-12-12] MEDS: 0.9 % SODIUM CHLORIDE 50 ML VIAL IV (13:51)
[2024-12-12] MEDS: IOPAMIDOL-370 (76%);100ML BOTTLE 85 ML IV (13:51)
[2024-12-12] MEDS: LEVOFLOXACIN/D5W 750 MG/150 ML 750 MG/150 ML PIGGYBACK 100 MG IV (15:53)
[2024-12-12 16:36] LABS: Troponin I < 0.01 ng/ml (0.00-0.034)
[2024-12-12 17:47] LABS: Lipase 390 U/L (23-300)
[2024-12-12] MEDS: APIXABAN 5MG TABLET 5 MG PO (20:59)
[2024-12-13] VITALS (8 sets, daily range): BP systolic 131–150; BP diastolic 69–97; PULSE 72–89; RESP 18–20; TEMP 36.5–36.8; O2SAT 93–95; BMI 26.0
--- NOTE | 2024-12-13 | US_ITS ---
FINAL REPORT TECHNIQUE: Multiple transverse and longitudinal images CLINICAL HISTORY: CBD DILATATION COMPARISON: none FINDINGS: The patient is status postcholecystectomy. Common bile duct is normal measuring 6 mm. No fluid collections are seen. Visualized portions of the liver are homogeneous. There is mild right renal atrophy without evidence of obstruction. IMPRESSION: Unremarkable exam. Reviewed, Interpreted and Dictated by Suni Davenport MD Transcribed by Maura Jamison Authenticated and [facility]
[2024-12-13] MEDS: IPRATROPIUM/ALBUTEROL 3 ML NEB IH ×2 (02:11→06:29)
[2024-12-13] MEDS: BUDESONIDE 0.5MG/2ML NEB 0.5 MG IH (06:29)
[2024-12-13 07:37] LABS: Basophils % 0.2 % (0.1-2.0); Hematocrit 37.7 % (37.0-47.0); Hemoglobin 12.5 g/dL (12.2-16.2); Lymphocytes # 0.6 K/mm3 (0.7-4.5); Lymphocytes % 9.8 % (10-50); Mean Corpuscular HGB Conc 33.2 g/dL (31.8-35.4); Mean Corpuscular Hemoglobin 32.8 pg (27.0-31.2); Mean Platelet Volume 10.6 fl (7.4-10.4); Monocytes # 0.4 K/mm3 (0.1-1.0); Monocytes % 6.4 % (1.7-9.3); Neutrophils # 4.7 K/mm3 (1.8-7.8); Neutrophils % 83.1 % (37.0-80.0); Platelet Count 204 K/mm3 (142-424); Red Blood Count 3.81 M/mm3 (4.20-5.40); Red Cell Distribution Width 12.2 % (11.5-17.5); White Blood Count 5.6 K/mm3 (4.8-10.8)
[2024-12-13 07:59] LABS: Alanine Aminotransferase 27 U/L (12-78); Albumin Level 3.2 g/dl (3.5-5.0); Albumin/Globulin Ratio 1.3 (1.1-1.8); Alkaline Phosphatase 96 U/L (38-126); Aspartate Amino Transferase 30 U/L (14-36); Blood Urea Nitrogen 15 mg/dl (7-17); Calcium 8.7 mg/dl (8.4-10.2); Carbon Dioxide 27 mmol/L (22.0-30.0); Chloride 103 mmol/L (98-107); Creatinine Clearance Estimated 52 mL/min (50-200); Estimated Glomerular Filt Rate 96 ml/min (>60); GFR (African American) 116 ML/MIN (>60); Globulin 2.4 g/dL (1.3-3.2); Glucose 221 mg/dl (74-100); Magnesium 2.2 mg/dl (1.6-2.3); Sodium 134 mmol/L (136-145); Total Protein,Serum 5.6 g/dl (6.3-8.2)
--- NOTE | 2024-12-13 08:02 | PC.NURSE ---
Pt. is alert and orientated x 4. Pt. is on 2 liters oxygen per [place]. Pt. sheezy with activity. Neb tx. q 6 hours. Pt. slept well this shift.
[2024-12-13 08:10] LABS: Bilirubin,Total 0.1 mg/dl (0.2-1.3)
[2024-12-13] MEDS: METHYLPREDNISOLONE SOD SUCC 40MG VIAL 40 MG IV ×2 (08:35→20:04)
[2024-12-13] MEDS: dilTIAZem ER 120MG CAPSULE 120 MG PO (08:35)
[2024-12-13] MEDS: CITALOPRAM 20MG TABLET 20 MG PO (08:35)
[2024-12-13] MEDS: APIXABAN 5MG TABLET 5 MG PO ×2 (08:35→20:03)
--- NOTE | 2024-12-13 09:28 | EXP.PULM.PN ---
Subjective *Date: 12/13/24 *Time: 10:34 Interval history: No acute respiratory vents overnight. Patient admits significant improvement in her respiratory distress. Pulmonology Exam Inpatient Vital signs and Labs for Last 24 Hours: Temp Pulse Resp BP Pulse Ox O2 Del Method O2 Flow Rate 98.2 F 89 20 131/78 94 L Nasal Cannula 2 12/13/24 08:00 12/13/24 08:00 12/13/24 08:00 12/13/24 08:00 12/13/24 08:00 12/13/24 08:56 12/13/24 08:56 Laboratory Results - last 24 hr 12/12/24 09:24: VBG pH 7.47 H, VBG pCO2 31.5 L, VBG pO2 45.3 H, VBG HCO3 22.2 L, VBG Total CO2 23.1, VBG O2 Saturation 83.0 H, VBG Base Excess -1.6, VBG Lactic Acid 1.3 12/12/24 09:35: WBC 12.3 H, RBC 4.17 L, Hgb 13.8, Hct 40.7, MCV 97.6, MCH 33.1 H, MCHC 33.9, RDW 12.1, Plt Count 230, MPV 10.0, Neut % (Auto) 86.8 H, Lymph % (Auto) 8.2 L, [place] % (Auto) 4.6, Eos % (Auto) 0.0 L, Baso % (Auto) 0.1, Neut # (Auto) 10.7 H, Lymph # (Auto) 1.0, [place] # (Auto) 0.6, Eos # (Auto) 0.0, Baso # (Auto) 0.0, D-Dimer 0.72 H, Sodium 135 L, Potassium 3.6, Chloride 104, Carbon Dioxide 29, Anion Gap 5.6, BUN 15, Creatinine 0.60, Estimated Creat Clear 54, Estimated GFR 96, Est GFR ( Amer) 116, Glucose 130 H, Calcium 9.0, Total Bilirubin 0.3, AST 33, ALT 28, Alkaline Phosphatase 113, Troponin I 0.01, NT-Pro-B Natriuret Pep 420, Total Protein 6.3, Albumin 3.5, Globulin 2.8, Albumin/Globulin Ratio 1.3 12/12/24 09:40: Chlamy pneumoniae PCR Not detected, Adenovirus (PCR) Not detected, B. pertussis DNA (PCR) Not detected, Coronavirus OC43 (PCR) Not detected, Coronavirus HKU1 (PCR) Not detected, Coronavirus 229E (PCR) Not detected, SARS-CoV-2 (PCR) Not detected, Coronavirus NL63 (PCR) Not detected, Human Metapneumovir PCR Not detected, Influenza A (H1) PCR Not detected, Influ A (H1N1/09) PCR Not detected, Influenza A (H3) PCR Not detected, Influenza Type A (PCR) Not detected, Influenza Type B (PCR) Not detected, M. pneumoniae (PCR) Not detected, Parainfluenza 1 (PCR) Not detected, Parainfluenza 2 (PCR) Not detected, Parainfluenza 3 (PCR) Not detected, Parainfluenza 4 (PCR) Not detected, RSV (PCR) Not detected, Entero/Rhino (PCR) Not detected 12/12/24 12:44: Troponin I < 0.01 12/12/24 15:33: Troponin I < 0.01, Lipase 390 H 12/13/24 06:17: WBC 5.6 D, RBC 3.81 L, Hgb 12.5, Hct 37.7, MCV 99.0, MCH 32.8 H, MCHC 33.2, RDW 12.2, Plt Count 204, MPV 10.6 H, Neut % (Auto) 83.1 H, Lymph % (Auto) 9.8 L, [place] % (Auto) 6.4, Eos % (Auto) 0.0 L, Baso % (Auto) 0.2, Neut # (Auto) 4.7, Lymph # (Auto) 0.6 L, [place] # (Auto) 0.4, Eos # (Auto) 0.0, Baso # (Auto) 0.0, Sodium 134 L, Potassium 4.0, Chloride 103, Carbon Dioxide 27, Anion Gap 8.0, BUN 15, Creatinine 0.60, Estimated Creat Clear 52, Estimated GFR 96, Est GFR ( Amer) 116, Glucose 221 H D, Calcium 8.7, Magnesium 2.2, Total Bilirubin 0.1 L, AST 30, ALT 27, Alkaline Phosphatase 96, Total Protein 5.6 L, Albumin 3.2 L, Globulin 2.4, Albumin/Globulin Ratio 1.3 Temp Pulse Resp BP Pulse Ox O2 Del Method O2 Flow Rate 98.4 F 70 18 126/81 95 Nasal Cannula 2 12/12/24 11:47 12/12/24 11:48 12/12/24 11:48 12/12/24 11:48 12/12/24 11:48 12/12/24 11:48 12/12/24 11:48 Laboratory Results - last 24 hr 12/12/24 09:24: VBG pH 7.47 H, VBG pCO2 31.5 L, VBG pO2 45.3 H, VBG HCO3 22.2 L, VBG Total CO2 23.1, VBG O2 Saturation 83.0 H, VBG Base Excess -1.6, VBG Lactic Acid 1.3 12/12/24 09:35: WBC 12.3 H, RBC 4.17 L, Hgb 13.8, Hct 40.7, MCV 97.6, MCH 33.1 H, MCHC 33.9, RDW 12.1, Plt Count 230, MPV 10.0, Neut % (Auto) 86.8 H, Lymph % (Auto) 8.2 L, [place] % (Auto) 4.6, Eos % (Auto) 0.0 L, Baso % (Auto) 0.1, Neut # (Auto) 10.7 H, Lymph # (Auto) 1.0, [place] # (Auto) 0.6, Eos # (Auto) 0.0, Baso # (Auto) 0.0, D-Dimer 0.72 H, Sodium 135 L, Potassium 3.6, Chloride 104, Carbon Dioxide 29, Anion Gap 5.6, BUN 15, Creatinine 0.60, Estimated Creat Clear 54, Estimated GFR 96, Est GFR ( Amer) 116, Glucose 130 H, Calcium 9.0, Total Bilirubin 0.3, AST 33, ALT 28, Alkaline Phosphatase 113, Troponin I 0.01, NT-Pro-B Natriuret Pep 420, Total Protein 6.3, Albumin 3.5, Globulin 2.8, Albumin/Globulin Ratio 1.3 12/12/24 09:40: Chlamy pneumoniae PCR Not detected, Adenovirus (PCR) Not detected, B. pertussis DNA (PCR) Not detected, Coronavirus OC43 (PCR) Not detected, Coronavirus HKU1 (PCR) Not detected, Coronavirus 229E (PCR) Not detected, SARS-CoV-2 (PCR) Not detected, Coronavirus NL63 (PCR) Not detected, Human Metapneumovir PCR Not detected, Influenza A (H1) PCR Not detected, Influ A (H1N1/09) PCR Not detected, Influenza A (H3) PCR Not detected, Influenza Type A (PCR) Not detected, Influenza Type B (PCR) Not detected, M. pneumoniae (PCR) Not detected, Parainfluenza 1 (PCR) Not detected, Parainfluenza 2 (PCR) Not detected, Parainfluenza 3 (PCR) Not detected, Parainfluenza 4 (PCR) Not detected, RSV (PCR) Not detected, Entero/Rhino (PCR) Not detected I & O for Labs for Last 24 Hours: Intake & Output 12/10/24 12/11/24 12/12/24 12/13/24 23:59 23:59 23:59 23:59 Intake Total 560 / 800 240 / 240 Output Total 0 / 0 0 / 0 Balance 560 / 800 240 / 240 Weight 166 lb 165 lb 15.988 oz Intake & Output 12/09/24 12/10/24 12/11/24 12/12/24 23:59 23:59 23:59 23:59 Weight 166 lb Constitutional: Present mild distress Head: Present normocephalic and atraumatic ENT: Present normal exam, normal oropharynx and mucous membranes moist Neck: Present normal inspection and full ROM Respiratory: Present respiratory distress, diminished air movement and able to speak in complete sentences; Absent wheezes Cardiac: Present S1/S2, Tachycardia and radial pulses present GI: Present soft and distention; Absent tenderness or guarding Rectal (female): Present deferred (female): Present deferred Skin: Present intact; Absent cyanosis or jaundice Neuro: Present alert, awake and oriented x 3 Extremities: Present normal inspection; Absent clubbing or cyanosis Psychiatric: Present normal affect and cooperative Assessment and Plan *Assessment and plan (1) Acute exacerbation of chronic obstructive pulmonary disease: Status: Acute Category: Medical Code(s): J44.1 - Chronic obstructive pulmonary disease with (acute) exacerbation (2) Pneumonia: Status: Acute Category: Medical Code(s): J18.9 - Pneumonia, unspecified organism (3) Bronchiolitis: Status: Acute Category: Medical Code(s): J21.9 - Acute bronchiolitis, unspecified Plan Ms. Rojas is a 79-year-old female greater than [id number] smoking/smoked greater than 20 years ago history of rheumatoid arthritis previously on Plaquenil, recently started on Humira presented today with worsening respiratory distress. Patient presented to the urgent care center, diagnosed with influenza pneumonia 12/07/2024, completed course of Tamiflu. Patient admits gradually worsening respiratory symptoms for the last 2 days. Her symptoms are worse now than she was diagnosed with influenza pneumonia Mild neutrophilic prominent leukocytosis upon admission. Afebrile. Hemodynamically stable. Blood gas upon admission respiratory alkalosis. D-dimer elevated at 0.72 Chest x-ray upon admission, upper lobe predominant emphysematous changes. No dense consolidative/airspace changes noted. CTA no evidence of pulmonary embolism. No dense consolidative/airspace changes. Concern for bronchiolitis in the lower lobes. On initial examination appeared to be in severe respiratory distress. Bilateral diffuse wheezing noted. Interval update: No acute respiratory events overnight. Significant improvement in respiratory distress and wheezing. Improving leukocytosis. Serum lipase and CT abdomen consistent with pancreatitis. Follow-up with abdominal ultrasound and serum triglyceride levels Plan: Continue oxygen supplementation to maintain O2 saturation goal of 90% and above [place]oNebs every 4 hours along with Pulmicort every 12 scheduled Continue methylprednisolone 40 mg every 12 hours, wean as tolerated Continue levofloxacin 750 mg daily. Recommend to monitor QTc Follow-up with serum triglyceride # Thank you for involving pulmonary in this patient care. Will continue to follow.
--- NOTE | 2024-12-13 10:42 | P.CONS_ITS ---
History of Present Illness *Admission Date: 12/12/24 *History of present illness: Delmy Patel is a 79-year-old female with a medical history significant for COPD on room air, rheumatoid arthritis, paroxysmal A-fib who presents with progressive shortness of breath. Patient states she tested positive for the flu on 12/07/2024 and is being treated with Tamiflu and prednisone but unfortunately her shortness of breath became progressively worse. Endorses a productive cough, but denies chest pain. On arrival, she was hypoxic to 88% and she was requiring new oxygen requirement of 2 L. She had restricted airway which somewhat improved with DuoNeb continues to have increased work of breathing on 2 L. Full respiratory panel in the ED normal. VBG reassuring. CXR without acute findings. Case discussed with ED provider and decision was made to admit patient for acute hypoxic respiratory failure secondary to COPD exacerbation. Per admission - This is an 79-year-old female with who has been admitted for influenza and respiratory failure and COPD exacerbation. CTA of the chest showed incidental finding of stranding around the pancreas concerning for possible pancreatitis. Gastroenterology was consulted for this reason. Lipase was slightly elevated at 390 (ULN 300). LFTs are within normal limits. Patient is asymptomatic. She has no abdominal pain no nausea vomiting no loss of appetite. She is nontender to palpation on exam. No change in bowel habits or dietary habits. No weight loss. No history of pancreatitis. No alcohol consumption. No narcotic pain medicine use. Patient is status post cholecystectomy. No choledocholithiasis or enlarged bile duct or pancreatic duct or congenital pancreatic abnormality seen on imaging. [facility] Disclaimer: The information contained in this section may have been updated after the patient was seen, as this information can be updated by other users. Medical History (Updated 12/13/24 @ 15:13 by Caroline Diaz APRN) Bronchiolitis Pneumonia Atrial fibrillation History of rheumatoid arthritis COPD mixed type Multiple lung nodules on CT History of smoking 30 or more pack years Pulmonary emphysema Tobacco dependence in remission B12 deficiency Rheumatoid arthritis Urinary tract infection Uterine fibroid Menopause Irritable bowel syndrome (IBS) History of gastroesophageal reflux (GERD) Palpitations Carotid bruit Former smoker COPD (chronic obstructive pulmonary disease) Surgical History History of hemorrhoidectomy History of cholecystectomy History of hysterectomy History of tonsillectomy Family History Mother Cancer Father Coronary artery disease Social History (Updated 12/12/24 @ 12:36 by Piper Porter RN) Smoking Status: Former smoker smoking status stop date: 1984 alcohol intake: former substance use type: denies use current occupational status: retired Travel in the last 8 weeks: None household members: friend(s) housing: house Review of Systems Constitutional Constitutional: Reports system reviewed and no additional complaints, except as documented Eyes Eyes: Reports system reviewed and no additional complaints, except as documented ENT Ears, Nose, Mouth, and Throat: Reports system reviewed and no additional complaints, except as documented *Cardiovascular Cardiovascular: Reports system reviewed and no additional complaints, except as documented and Reports dyspnea *Respiratory Respiratory: Reports cough and Reports dyspnea *Gastrointestinal Gastrointestinal: Reports system reviewed and no additional complaints, except as documented, Denies abdominal pain, Denies nausea and Denies vomiting Meds Home Medications and Allergies Home Medications ?Medication ?Instructions ?Recorded ?Confirmed ?Type diltiazem HCl 120 mg 120 mg PO DAILY #30 caps 07/07/24 12/12/24 Rx capsule,extended release 24 hr citalopram 20 mg tablet 20 mg PO DAILY 90 days #90 tabs 10/17/24 12/12/24 Rx apixaban 5 mg tablet (Eliquis) 5 mg PO BID #30 tabs 11/07/24 12/12/24 Rx umeclidinium 62.5 mcg-vilanterol 1 inh inhalation DAILY 90 days 11/14/24 12/12/24 Rx 25 mcg/actuation powdr for #180 ea inhalation (Anoro Ellipta) adalimumab 40 mg/0.8 mL 40 mg SQ WEEKLY 11/16/24 12/12/24 History subcutaneous pen kit (Humira Pen) benzonatate 100 mg capsule 100 mg PO BIDP PRN cough 12/12/24 12/12/24 History New Prescriptions to Start Prescriptions: Allergies Allergy/AdvReac Type Severity Reaction Status Date / Time Penicillins Allergy sore mouth Verified 12/07/24 09:06 Exam (Inpt) Vital signs and Labs for Last 24 Hours: Temp Pulse Resp BP Pulse Ox O2 Del Method O2 Flow Rate 98.2 F 89 20 131/78 94 L Nasal Cannula 2 12/13/24 08:00 12/13/24 08:00 12/13/24 08:00 12/13/24 08:00 12/13/24 08:00 12/13/24 10:23 12/13/24 10:23 Laboratory Results - last 24 hr 12/12/24 09:40: Chlamy pneumoniae PCR Not detected, Adenovirus (PCR) Not detected, B. pertussis DNA (PCR) Not detected, Coronavirus OC43 (PCR) Not detected, Coronavirus HKU1 (PCR) Not detected, Coronavirus 229E (PCR) Not detected, SARS-CoV-2 (PCR) Not detected, Coronavirus NL63 (PCR) Not detected, Human Metapneumovir PCR Not detected, Influenza A (H1) PCR Not detected, Influ A (H1N1/09) PCR Not detected, Influenza A (H3) PCR Not detected, Influenza Type A (PCR) Not detected, Influenza Type B (PCR) Not detected, M. pneumoniae (PCR) Not detected, Parainfluenza 1 (PCR) Not detected, Parainfluenza 2 (PCR) Not detected, Parainfluenza 3 (PCR) Not detected, Parainfluenza 4 (PCR) Not detected, RSV (PCR) Not detected, Entero/Rhino (PCR) Not detected 12/12/24 12:44: Troponin I < 0.01 12/12/24 15:33: Troponin I < 0.01, Lipase 390 H 12/13/24 06:17: WBC 5.6 D, RBC 3.81 L, Hgb 12.5, Hct 37.7, MCV 99.0, MCH 32.8 H , MCHC 33.2, RDW 12.2, Plt Count 204, MPV 10.6 H, Neut % (Auto) 83.1 H, Lymph % (Auto) 9.8 L, [place] % (Auto) 6.4, Eos % (Auto) 0.0 L, Baso % (Auto) 0.2, Neut # (Auto) 4.7, Lymph # (Auto) 0.6 L, [place] # (Auto) 0.4, Eos # (Auto) 0.0, Baso # (Auto) 0.0, Sodium 134 L, Potassium 4.0, Chloride 103, Carbon Dioxide 27, Anion Gap 8.0, BUN 15, Creatinine 0.60, Estimated Creat Clear 52, Estimated GFR 96, Est GFR ( Amer) 116, Glucose 221 H D, Calcium 8.7, Magnesium 2.2, Total Bilirubin 0.1 L, AST 30, ALT 27, Alkaline Phosphatase 96, Total Protein 5.6 L, A lbumin 3.2 L, Globulin 2.4, Albumin/Globulin Ratio 1.3 I & O for Labs for Last 24 Hours: Intake & Output 12/10/24 12/11/24 12/12/24 12/13/24 11:59 11:59 11:59 11:59 Intake Total 800 Output Total 0 Balance 800 Weight 75.296 kg 75.296 kg Microbiology Reports for the Last 24 Hours: Microbiology 12/12/24 09:35 Blood Blood Culture - Preliminary NO GROWTH AFTER 24 HOURS 12/12/24 09:30 Blood Blood Culture - Preliminary NO GROWTH AFTER 24 HOURS Constitutional: no acute distress Head: Present normocephalic and atraumatic Respiratory: Present decreased breath sounds (llq) and rhonchi (mils llq) GI: Present soft and normal bowel sounds; Absent tenderness Results Labs 12/13/24 06:17 12/13/24 06:17 Labs: Laboratory Results - last 24 hr 12/12/24 09:40: Chlamy pneumoniae PCR Not detected, Adenovirus (PCR) Not detected, B. pertussis DNA (PCR) Not detected, Coronavirus OC43 (PCR) Not detected, Coronavirus HKU1 (PCR) Not detected, Coronavirus 229E (PCR) Not detected, SARS-CoV-2 (PCR) Not detected, Coronavirus NL63 (PCR) Not detected, Human Metapneumovir PCR Not detected, Influenza A (H1) PCR Not detected, Influ A (H1N1/09) PCR Not detected, Influenza A (H3) PCR Not detected, Influenza Type A (PCR) Not detected, Influenza Type B (PCR) Not detected, M. pneumoniae (PCR) Not detected, Parainfluenza 1 (PCR) Not detected, Parainfluenza 2 (PCR) Not detected, Parainfluenza 3 (PCR) Not detected, Parainfluenza 4 (PCR) Not detected, RSV (PCR) Not detected, Entero/Rhino (PCR) Not detected 12/12/24 12:44: Troponin I < 0.01 12/12/24 15:33: Troponin I < 0.01, Lipase 390 H 12/13/24 06:17: WBC 5.6 D, RBC 3.81 L, Hgb 12.5, Hct 37.7, MCV 99.0, MCH 32.8 H , MCHC 33.2, RDW 12.2, Plt Count 204, MPV 10.6 H, Neut % (Auto) 83.1 H, Lymph % (Auto) 9.8 L, [place] % (Auto) 6.4, Eos % (Auto) 0.0 L, Baso % (Auto) 0.2, Neut # (Auto) 4.7, Lymph # (Auto) 0.6 L, Addison # (Auto) 0.4, Eos # (Auto) 0.0, Baso # (Auto) 0.0, Sodium 134 L, Potassium 4.0, Chloride 103, Carbon Dioxide 27, Anion Gap 8.0, BUN 15, Creatinine 0.60, Estimated Creat Clear 52, Estimated GFR 96, Est GFR ( Amer) 116, Glucose 221 H D, Calcium 8.7, Magnesium 2.2, Total Bilirubin 0.1 L, AST 30, ALT 27, Alkaline Phosphatase 96, Total Protein 5.6 L, A lbumin 3.2 L, Globulin 2.4, Albumin/Globulin Ratio 1.3 Assessment and Plan *Assessment and plan (1) Abnormal CT of the abdomen: Status: Acute Category: Medical Code(s): R93.5 - Abnormal findings on diagnostic imaging of other abdominal regions, including retroperitoneum (2) Elevated lipase: Status: Acute Category: Medical Code(s): R74.8 - Abnormal levels of other serum enzymes Plan 1. Elevated lipase/abnormal CT of the abdomen Patient has no complaints of abdominal pain and is nontender on exam. Lipase was slightly elevated at 390, possible stranding seen around the pancreas of CTA of chest that look like possible pancreatitis. Acute pancreatitis is usually diagnosed with at least 2 positive findings. Possible pancreatitis seen on imaging but lipase is not 2-3 times the upper limit of normal and she has no abdominal pain. No nausea vomiting no loss of appetite. This is really not consistent with an acute pancreatitis diagnosis. I recommend watchful waiting and will repeat amylase and lipase tomorrow. If she develops abdominal pain or a spike of her lipase above 2-3 times the upper limit of normal, we can reevaluate with MRI of the pancreas.
[2024-12-13 10:56] LABS: Triglycerides 101 mg/dl (30-150)
[2024-12-13 11:01] LABS: C-Reactive Protein 40.2 mg/L (0-4)
[2024-12-13] MEDS: LEVOFLOXACIN/D5W 750 MG/150 ML 750 MG/150 ML PIGGYBACK 100 MG IV (12:31)
--- NOTE | 2024-12-13 12:46 | SW/DCPLANNER ---
Per PT/OT no needs at this time.
--- NOTE | 2024-12-13 13:14 | HMH.PTEV ---
Physical Therapy Evaluation Rehab PT IP Evaluation Start: 12/13/24 09:33 Freq: .once Status: Active Protocol: Document 12/13/24 11:00 JULY (Rec: 12/13/24 13:14 PHORFARIBA [id number]) Subjective/History History History 79-year-old female with a medical history significant for COPD on room air, rheumatoid arthritis, paroxysmal A-fib who presents with progressive shortness of breath. Patient states she tested positive for the flu on 12/07/2024 and is being treated with Tamiflu and prednisone but unfortunately her shortness of breath became progressively worse. Endorses a productive cough, but denies chest pain. On arrival, she was hypoxic to 88 % and she was requiring new oxygen requirement of 2 L. She had restricted airway which somewhat improved with DuoNeb continues to have increased work of breathing on 2 L. Full respiratory panel in the ED normal. VBG reassuring. CXR without acute findings. Case discussed with ED provider and decision was made to admit patient for acute hypoxic respiratory failure secondary to COPD exacerbation. She reports she lives with family, [address] the home, and she is generally independent with all mobility without AD at baseline. Currently on 2L NC O2. Subjective Subjective Pt presents awake, supine in bed, agrees to treatment. [facility] How much help from another person do you currently need... Turning from your back to your side None while in a flat bed without using bedrails? Moving from lying on back to sitting on None the side of a flat bed without using bedrails? Moving to and from a bed to a chair ( None including a wheelchair)? Standing up from a chair using your arms None ? (e.g., wheelchair, bedside chair) Walking in hospital room? None Climbing 3-5 steps with a railing? None Mobility Score 24 Mobility Level [facility] Mobility Calculator Mobility 8 Walk 250 feet or more Rehab PT IP Eval Objective Appearance Patient Behavior Appropriate Patient Orientation Person,Place,Time Difficulty following instructions none Speech Pattern Clear Ambulation Patient Able to Ambulate Yes Ambulation Observation IP General Gait Pattern Observation No Deviations/Normal Ambulation Distance (feet) 30 Ambulation Assistive Device None Ambulation Ability Independent Balance Ability to Arise Able, uses arms to help Sitting Balance Steady, safe Standing Balance Steady, wide stance Dynamic Sitting Balance Ability Good Dynamic Standing Balance Ability Good Transfers Bed Transfer Ability Independent Chair Transfer Ability Independent Sit to Stand Bed Transfer Ability Independent Sit to Stand Chair Transfer Ability Independent Rehab PT IP prob,goals,plan Problems Date of Evaluation: 12/13/24 Discharge Plan PT Discharge Plan Pt currently has no inpatient therapy needs at this time and is appropriate to return home once medically stable for d/c . Eval Complexity Eval Charge Codes 06205 - High Complexity PHYSICIAN CERTIFICATION: I certify the specified therapy services for Delmy Patel are required, authorized, and reviewed every 30 days.
--- NOTE | 2024-12-13 18:35 | P.PN_ITS ---
Subjective *Date: 12/13/24 *Time: 18:35 Interval history: Patient denies any chest pain. Stable on 2 L today. No abdominal pain. No nausea or vomiting. Requesting something to eat after right upper quadrant ultrasound. White count normal. Afebrile. Medical Exam Vital signs and Labs for Last 24 Hours: Vital Signs Temp Pulse Pulse Resp BP Pulse Ox O2 Del Method 12/13/24 17:26 Nasal Cannula 12/13/24 16:01 Nasal Cannula 12/13/24 16:00 98.0 F 88 18 148/88 H 95 Nasal Cannula 12/13/24 14:08 Nasal Cannula 12/13/24 12:00 97.7 F 79 20 138/84 94 L Nasal Cannula 12/13/24 10:23 Nasal Cannula 12/13/24 08:56 Nasal Cannula 12/13/24 08:00 Nasal Cannula 12/13/24 08:00 98.2 F 89 20 131/78 94 L Nasal Cannula 12/13/24 07:00 Nasal Cannula 12/13/24 06:30 75 12/13/24 06:30 72 12/13/24 06:30 95 Nasal Cannula 12/13/24 05:00 Nasal Cannula 12/13/24 04:00 78 136/69 94 L Room Air 12/13/24 03:00 Nasal Cannula, Venturi Mask 12/13/24 02:12 74 12/13/24 02:12 78 12/13/24 01:00 Nasal Cannula 12/13/24 00:00 Nasal Cannula 12/13/24 00:00 97.8 F 75 150/84 H 95 Nasal Cannula 12/12/24 23:55 Nasal Cannula 12/12/24 23:00 Nasal Cannula 12/12/24 22:09 85 12/12/24 22:09 87 12/12/24 22:09 94 L Nasal Cannula 12/12/24 21:00 Nasal Cannula 12/12/24 20:00 Nasal Cannula 12/12/24 20:00 97.4 F L 73 147/82 H 95 Nasal Cannula 12/12/24 18:58 Nasal Cannula O2 Flow Rate 12/13/24 17:26 2 12/13/24 16:01 2 12/13/24 16:00 2 12/13/24 14:08 2 12/13/24 12:00 2 12/13/24 10:23 2 12/13/24 08:56 2 12/13/24 08:00 2 12/13/24 08:00 2 12/13/24 07:00 2 12/13/24 06:30 12/13/24 06:30 12/13/24 06:30 2 12/13/24 05:00 2 12/13/24 04:00 12/13/24 03:00 2 12/13/24 02:12 12/13/24 02:12 12/13/24 01:00 2 12/13/24 00:00 2 12/13/24 00:00 2 12/12/24 23:55 2 12/12/24 23:00 2 12/12/24 22:09 12/12/24 22:09 12/12/24 22:09 2 12/12/24 21:00 2 12/12/24 20:00 2 12/12/24 20:00 2 12/12/24 18:58 Intake and Output 12/13/24 12/13/24 12/13/24 07:59 15:59 23:59 Intake Total 240 / 1230 510 / 1230 480 / 1230 Output Total 0 / 0 0 / 0 Balance 240 / 1230 510 / 1230 480 / 1230 Intake: Intake, Oral Amount 240 / 1080 360 / 1080 480 / 1080 Intake, Total IV Amount 150 / 150 Levofloxacin/D5w 750 mg/150 ml 150 / 150 750 mg In 150 ml @ 100 mls/hr IV 1100 [facility] Rx#:[id number] Output: Output, Urine Amount 0 / 0 0 / 0 Other: Number of Unmeasured Voids 1 1 Weight 75.296 kg Patient Weight 12/13/24 23:59 Weight 75.296 kg Laboratory Results - last 24 hr 12/13/24 06:17: WBC 5.6 D, RBC 3.81 L, Hgb 12.5, Hct 37.7, MCV 99.0, MCH 32.8 H , MCHC 33.2, RDW 12.2, Plt Count 204, MPV 10.6 H, Neut % (Auto) 83.1 H, Lymph % (Auto) 9.8 L, [place] % (Auto) 6.4, Eos % (Auto) 0.0 L, Baso % (Auto) 0.2, Neut # (Auto) 4.7, Lymph # (Auto) 0.6 L, [place] # (Auto) 0.4, Eos # (Auto) 0.0, Baso # (Auto) 0.0, Sodium 134 L, Potassium 4.0, Chloride 103, Carbon Dioxide 27, Anion Gap 8.0, BUN 15, Creatinine 0.60, Estimated Creat Clear 52, Estimated GFR 96, Est GFR ( Amer) 116, Glucose 221 H D, Calcium 8.7, Magnesium 2.2, Total Bilirubin 0.1 L, AST 30, ALT 27, Alkaline Phosphatase 96, C-Reactive Protein 40.2 H, Total Protein 5.6 L, Albumin 3.2 L, Globulin 2.4, Albumin/Globulin Ratio 1.3, Triglycerides 101 I & O for Labs for Last 24 Hours: Intake & Output 12/10/24 12/11/24 12/12/24 12/13/24 23:59 23:59 23:59 23:59 Intake Total 560 / 800 1230 / 1230 Output Total 0 / 0 0 / 0 Balance 560 / 800 1230 / 1230 Weight 75.296 kg 75.296 kg Microbiology Reports for the Last 24 Hours: Microbiology 12/12/24 09:35 Blood Blood Culture - Preliminary NO GROWTH AFTER 24 HOURS 12/12/24 09:30 Blood Blood Culture - Preliminary NO GROWTH AFTER 24 HOURS Constitutional: Present no acute distress, average body habitus, chronically ill appearing and cooperative Head: Present atraumatic and normocephalic ENT: Present normal exam Respiratory: Present prolonged expiratory phase, wheezes (minimal) and normal respiratory effort; Absent rhonchi or crackles Cardiac: Present Reg Rate and Rhythm GI: Present soft and normal bowel sounds; Absent distention or tenderness Extremities: Present normal inspection and full ROM Skin: Present intact; Absent erythema Neuro: Present Grossly Intact, alert, awake, oriented x 3 and moves all extremities Assessment and Plan *Assessment and plan (1) Hypoxic respiratory failure: Status: Acute Category: Medical Code(s): J96.91 - Respiratory failure, unspecified with hypoxia (2) Acute exacerbation of chronic obstructive pulmonary disease: Status: Acute Category: Medical Code(s): J44.1 - Chronic obstructive pulmonary disease with (acute) exacerbation (3) Elevated lipase: Status: Acute Category: Medical Code(s): R74.8 - Abnormal levels of other serum enzymes (4) Abnormal CT of the abdomen: Status: Acute Category: Medical Code(s): R93.5 - Abnormal findings on diagnostic imaging of other abdominal regions, including retroperitoneum (5) Bronchiolitis: Status: Acute Category: Medical Code(s): J21.9 - Acute bronchiolitis, unspecified (6) Pneumonia: Status: Acute Category: Medical Code(s): J18.9 - Pneumonia, unspecified organism Plan Delmy Patel is a 79-year-old female with a medical history significant for COPD on room air, rheumatoid arthritis, paroxysmal A-fib who presents with progressive shortness of breath. Patient states she tested positive for the flu on 12/07/2024 and is being treated with Tamiflu and prednisone but unfortunately her shortness of breath became progressively worse. Endorses a productive cough, but denies chest pain. On arrival, she was hypoxic to 88% and she was requiring new oxygen requirement of 2 L. She had restricted airway which somewhat improved with DuoNeb continues to have increased work of breathing on 2 L. Full respiratory panel in the ED normal. VBG reassuring. CXR without acute findings. Case discussed with ED provider and decision was made to admit patient for acute hypoxic respiratory failure secondary to COPD exacerbation. Right upper quadrant ultrasound with common bile duct of 6 mm. No abdominal pain today. Advance diet. If no pain in the morning and improvement in lipase, anticipate discharge tomorrow. 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 Progressive shortness of breath after testing positive for influenza. Finished course of prednisone and Tamiflu. ? Continues to have increased work of breathing with moderately restricted airways. ? CTA without acute findings. No PE. Full respiratory panel negative. ? Patient has longstanding history of rheumatoid arthritis, likely has underlying RA?ILD which will make treatment more challenging. ? Case altagracia with pulmonology, recommend continue oxygen as needed for goal sats greater 90%. Currently on 2 L. Continue DuoNebs every 4 hours and Pulmicort twice daily. Continue methylprednisolone 40 mg twice daily. Continue Levaquin 750 mg daily. ? Hold home Humira, Plaquenil for RA at this time. -White count normal at 5.6. Kidney function normal with BUN 15, creatinine 0.6. Repeat CBC, CMP, magnesium ordered for the morning. #CT evidence of pancreatitis ? Unclear source of elevated lipase. Patient clinically does not appear to have symptoms consistent with pancreatitis given her normal common bile duct diameter and no abdominal pain. Will advance diet and repeat lipase in the morning. #A-fib ? Currently rate controlled; Continue home diltiazem, Eliquis. #Anxiety/depression ? Continue home citalopram. Full code DVT prophylaxis: Eliquis Rate diet
--- NOTE | 2024-12-13 18:43 | PC.NURSE ---
Aox 4, up ad lily, 02-2L nc, regular diet, 20g L AC SL.
[2024-12-14] VITALS: BP 133/88; PULSE 74; RESP 16; TEMP 36.5; O2SAT 98
[2024-12-14 04:00] VITALS: BP 130/81; PULSE 70; RESP 16; TEMP 36.5; BMI 26.0
--- NOTE | 2024-12-14 05:47 | PC.NURSE ---
Pt. is alert and orientated x 4. Pt. on 2 liters of N/C oxygen. Pt. has slept well this shift. when awake for labs at 0500 she states she feels a little better. she does get more SOA when sitting up and moving around. Pt. has had no c/o's overnight. VSS, Personal items and call martell in reach.
[2024-12-14] MEDS: FLUTICASONE/UMECLIDIN/VILANTER 100/62.5/25MCG INHALER 1 PUFF IH (06:08)
[2024-12-14 06:11] VITALS: O2SAT 96
[2024-12-14 06:25] LABS: Hematocrit 37.6 % (37.0-47.0); Hemoglobin 12.4 g/dL (12.2-16.2); Lymphocytes # 0.7 K/mm3 (0.7-4.5); Lymphocytes % 9.7 % (10-50); Mean Corpuscular Hemoglobin 32.2 pg (27.0-31.2); Mean Corpuscular Volume 97.7 fl (81-99); Mean Platelet Volume 10.3 fl (7.4-10.4); Monocytes # 0.3 K/mm3 (0.1-1.0); Monocytes % 3.5 % (1.7-9.3); Neutrophils # 6.4 K/mm3 (1.8-7.8); Platelet Count 215 K/mm3 (142-424); Red Blood Count 3.85 M/mm3 (4.20-5.40); Red Cell Distribution Width 12.2 % (11.5-17.5); White Blood Count 7.4 K/mm3 (4.8-10.8)
[2024-12-14 06:55] LABS: Alanine Aminotransferase 25 U/L (12-78); Albumin/Globulin Ratio 1.2 (1.1-1.8); Alkaline Phosphatase 94 U/L (38-126); Amylase 60 U/L (30-110); Anion Gap 6.3 mEq/L (5-15); Aspartate Amino Transferase 30 U/L (14-36); Bilirubin,Total 0.2 mg/dl (0.2-1.3); Blood Urea Nitrogen 22 mg/dl (7-17); Calcium 8.9 mg/dl (8.4-10.2); Carbon Dioxide 28 mmol/L (22.0-30.0); Chloride 104 mmol/L (98-107); Creatinine Clearance Estimated 52 mL/min (50-200); Estimated Glomerular Filt Rate 96 ml/min (>60); GFR (African American) 116 ML/MIN (>60); Globulin 2.5 g/dL (1.3-3.2); Glucose 208 mg/dl (74-100); Magnesium 2.2 mg/dl (1.6-2.3); Potassium 4.3 mmoL/L (3.5-5.1); Sodium 134 mmol/L (136-145); Total Protein,Serum 5.5 g/dl (6.3-8.2)
[2024-12-14 06:58] LABS: Lipase 158 U/L (23-300)
[2024-12-14 07:04] LABS: C-Reactive Protein 19.8 mg/L (0-4)
--- NOTE | 2024-12-14 07:37 | EXP.DC.SUM ---
General Admission date:: 12/12/24 Discharge date: 12/14/24 HPI HPI HPI: Delmy Patel is a 79-year-old female with a medical history significant for COPD on room air, rheumatoid arthritis, paroxysmal A-fib who presents with progressive shortness of breath. Patient states she tested positive for the flu on 12/07/2024 and is being treated with Tamiflu and prednisone but unfortunately her shortness of breath became progressively worse. Endorses a productive cough, but denies chest pain. On arrival, she was hypoxic to 88% and she was requiring new oxygen requirement of 2 L. She had restricted airway which somewhat improved with DuoNeb continues to have increased work of breathing on 2 L. Full respiratory panel in the ED normal. VBG reassuring. CXR without acute findings. Case discussed with ED provider and decision was made to admit patient for acute hypoxic respiratory failure secondary to COPD exacerbation. Per admission This is an 79-year-old female with who has been admitted for influenza and respiratory failure and COPD exacerbation. CTA of the chest showed incidental finding of stranding around the pancreas concerning for possible pancreatitis. Gastroenterology was consulted for this reason. Lipase was slightly elevated at 390 (ULN 300). LFTs are within normal limits. Patient is asymptomatic. She has no abdominal pain no nausea vomiting no loss of appetite. She is nontender to palpation on exam. No change in bowel habits or dietary habits. No weight loss. No history of pancreatitis. No alcohol consumption. No narcotic pain medicine use. Patient is status post cholecystectomy. No choledocholithiasis or enlarged bile duct or pancreatic duct or congenital pancreatic abnormality seen on imaging. Hospital Course Hospital Course Hospital Course: Delmy Patel is a 79-year-old female with a medical history significant for COPD on room air, rheumatoid arthritis, paroxysmal A-fib who presents with progressive shortness of breath. Patient states she tested positive for the flu on 12/07/2024 and is being treated with Tamiflu and prednisone but unfortunately her shortness of breath became progressively worse. Endorses a productive cough, but denies chest pain. On arrival, she was hypoxic to 88% and she was requiring new oxygen requirement of 2 L. She had restricted airway which somewhat improved with DuoNeb continues to have increased work of breathing on 2 L. Full respiratory panel in the ED normal. VBG reassuring. CXR without acute findings. Case discussed with ED provider and decision was made to admit patient for acute hypoxic respiratory failure secondary to COPD exacerbation. Patient did well during admission. Weaned oxygen but found to still have requirement by day of discharge. Stable on 2 L. In light of elevated lipase, ultrasound was obtained showing common bile duct of 6 mm. No abdominal pain. Tolerating regular diet. Stable discharge home with further management as an outpatient. 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 Progressive shortness of breath after testing positive for influenza. Finished course of prednisone and Tamiflu. Continues to have increased work of breathing with moderately restricted airways. CTA without acute findings. No PE. Full respiratory panel obtained and negative. Given her history of RA, likely has a component of underlying RA/ILD. Pulmonology was consulted to assist with care. Recommend continuing nasal cannula oxygen. Continue DuoNebs and Pulmicort during admission. Initially on methylprednisolone 40 mg twice daily. Transition to prednisone to complete 7 days of steroids total 40 mg daily. Continue Levaquin to complete 5 days of antibiotics. Initiated on Trelegy inhaler. -Held her RA meds during admission. Okay to resume at discharge. White count had normalized. 7.4 morning of discharge. Kidney function normal with BUN 22, creatinine 0.6. #CT evidence of pancreatitis ? Unclear source of elevated lipase. Patient clinically does not appear to have symptoms consistent with pancreatitis given her normal common bile duct diameter and no abdominal pain. Diet advanced. Tolerating without nausea or vomiting. Lipase normal on morning of discharge. #A-fib: Currently rate controlled; Continue home diltiazem, Eliquis. #Anxiety/depression: Continue home citalopram. Patient's room air saturation at rest on morning of discharge was 88%. Necessitating 2 L nasal cannula oxygen continuously. Total time spent on discharge 32 minutes in counseling, documentation, chart review, and direct care with patient. Exam Data for Last 24 hours Vital signs and Labs for Last 24 Hours: Temp Pulse Resp BP Pulse Ox O2 Del Method O2 Flow Rate 97.7 F 70 16 130/81 96 Nasal Cannula 2 12/14/24 04:00 12/14/24 04:00 12/14/24 04:00 12/14/24 04:00 12/14/24 06:11 12/14/24 07:00 12/14/24 07:00 FiO2 28 12/13/24 19:37 Laboratory Results - last 24 hr 12/13/24 06:17: WBC 5.6 D, RBC 3.81 L, Hgb 12.5, Hct 37.7, MCV 99.0, MCH 32.8 H, MCHC 33.2, RDW 12.2, Plt Count 204, MPV 10.6 H, Neut % (Auto) 83.1 H, Lymph % (Auto) 9.8 L, [place] % (Auto) 6.4, Eos % (Auto) 0.0 L, Baso % (Auto) 0.2, Neut # (Auto) 4.7, Lymph # (Auto) 0.6 L, [place] # (Auto) 0.4, Eos # (Auto) 0.0, Baso # (Auto) 0.0, Sodium 134 L, Potassium 4.0, Chloride 103, Carbon Dioxide 27, Anion Gap 8.0, BUN 15, Creatinine 0.60, Estimated Creat Clear 52, Estimated GFR 96, Est GFR ( Amer) 116, Glucose 221 H D, Calcium 8.7, Magnesium 2.2, Total Bilirubin 0.1 L, AST 30, ALT 27, Alkaline Phosphatase 96, C-Reactive Protein 40.2 H, Total Protein 5.6 L, Albumin 3.2 L, Globulin 2.4, Albumin/Globulin Ratio 1.3, Triglycerides 101 12/14/24 05:20: WBC 7.4 D, RBC 3.85 L, Hgb 12.4, Hct 37.6, MCV 97.7, MCH 32.2 H, MCHC 33.0, RDW 12.2, Plt Count 215, MPV 10.3, Neut % (Auto) 86.0 H, Lymph % (Auto) 9.7 L, [place] % (Auto) 3.5, Eos % (Auto) 0.0 L, Baso % (Auto) 0.0 L, Neut # (Auto) 6.4, Lymph # (Auto) 0.7, [place] # (Auto) 0.3, Eos # (Auto) 0.0, Baso # (Auto) 0.0, Sodium 134 L, Potassium 4.3, Chloride 104, Carbon Dioxide 28, Anion Gap 6.3, BUN 22 H D, Creatinine 0.60, Estimated Creat Clear 52, Estimated GFR 96, Est GFR ( Amer) 116, Glucose 208 H, Calcium 8.9, Magnesium 2.2, Total Bilirubin 0.2, AST 30, ALT 25, Alkaline Phosphatase 94, C-Reactive Protein 19.8 H D, Total Protein 5.5 L, Albumin 3.0 L, Globulin 2.5, Albumin/Globulin Ratio 1.2, Amylase 60, Lipase 158 I & O for Last 24 hours: Intake & Output 12/11/24 12/12/24 12/13/24 12/14/24 23:59 23:59 23:59 23:59 Intake Total 560 / 800 1230 / 1470 240 / 240 Output Total 0 / 0 0 / 0 0 / 0 Balance 560 / 800 1230 / 1470 240 / 240 Weight 75.296 kg 75.296 kg 75.206 kg Microbiology Reports for the Last 24 Hours: Microbiology 12/12/24 09:35 Blood Blood Culture - Preliminary NO GROWTH AFTER 24 HOURS 12/12/24 09:30 Blood Blood Culture - Preliminary NO GROWTH AFTER 24 HOURS Constitutional Constitutional: no acute distress, average body habitus, chronically ill appearing and cooperative *Routine HEENT Exam Head: Present normocephalic and atraumatic Eye: Present EOMI and PERRL ENT: Present mucous membranes moist *Routine Neck Exam Neck: Present supple; Absent JVD or lymphadenopathy *Routine Respiratory Exam Respiratory: Present normal respiratory effort and symmetric chest movement; Absent rhonchi, wheezes or crackles *Routine Cardiovascular Exam Cardiovascular: Present RRR *Routine Abdominal Exam Abdominal: Present soft and normoactive bowel sounds; Absent tenderness *Routine Rectal Exam Patient deferred: visual exam *Routine Exam Patient deferred: external exam *Routine Extremities Exam Extremities: Present full ROM; Absent cyanosis, clubbing or edema *Routine Skin Exam Skin: Present intact; Absent rash *Routine Neurological Exam Neurological: Present alert, oriented X3, moving all extremities, vision grossly intact, hearing grossly intact and normal speech; Absent sensory deficit or motor deficit Routine Psychiatric Exam Psychiatric: Present normal affect Results Data Completed and Pending Labs on day of discharge: Labs from last 24 hours 12/14/24 12/13/24 05:20 06:17 WBC 7.4 D 5.6 D RBC 3.85 L 3.81 L Hgb 12.4 12.5 Hct 37.6 37.7 MCV 97.7 99.0 MCH 32.2 H 32.8 H MCHC 33.0 33.2 RDW 12.2 12.2 Plt Count 215 204 MPV 10.3 10.6 H Neut % (Auto) 86.0 H 83.1 H Lymph % (Auto) 9.7 L 9.8 L [place] % (Auto) 3.5 6.4 Eos % (Auto) 0.0 L 0.0 L Baso % (Auto) 0.0 L 0.2 Neut # (Auto) 6.4 4.7 Lymph # (Auto) 0.7 0.6 L [place] # (Auto) 0.3 0.4 Eos # (Auto) 0.0 0.0 Baso # (Auto) 0.0 0.0 Sodium 134 L 134 L Potassium 4.3 4.0 Chloride 104 103 Carbon Dioxide 28 27 Anion Gap 6.3 8.0 BUN 22 H D 15 Creatinine 0.60 0.60 Estimated Creat Clear 52 52 Estimated GFR 96 96 Est GFR ( Amer) 116 116 Glucose 208 H 221 H D Calcium 8.9 8.7 Magnesium 2.2 2.2 Total Bilirubin 0.2 0.1 L AST 30 30 ALT 25 27 Alkaline Phosphatase 94 96 C-Reactive Protein 19.8 H D 40.2 H Total Protein 5.5 L 5.6 L Albumin 3.0 L 3.2 L Globulin 2.5 2.4 Albumin/Globulin Ratio 1.2 1.3 Triglycerides 101 Amylase 60 Lipase 158 Preliminary micro results at discharge 12/12/24 09:35 Blood Culture - Preliminary Blood NO GROWTH AFTER 24 HOURS 12/12/24 09:30 Blood Culture - Preliminary Blood NO GROWTH AFTER 24 HOURS DS: Diagnosis Discharge Diagnosis (1) Hypoxic respiratory failure: Status: Acute Code(s): J96.91 - Respiratory failure, unspecified with hypoxia (2) Acute exacerbation of chronic obstructive pulmonary disease: Status: Acute Code(s): J44.1 - Chronic obstructive pulmonary disease with (acute) exacerbation (3) Elevated lipase: Status: Acute Code(s): R74.8 - Abnormal levels of other serum enzymes (4) Abnormal CT of the abdomen: Status: Acute Code(s): R93.5 - Abnormal findings on diagnostic imaging of other abdominal regions, including retroperitoneum (5) Bronchiolitis: Status: Acute Code(s): J21.9 - Acute bronchiolitis, unspecified (6) Pneumonia: Status: Acute Code(s): J18.9 - Pneumonia, unspecified organism Meds Home Medications and Allergies Home Medications ?Medication ?Instructions ?Recorded ?Confirmed ?Type diltiazem HCl 120 mg 120 mg PO DAILY #30 caps 07/07/24 12/12/24 Rx capsule,extended release 24 hr citalopram 20 mg tablet 20 mg PO DAILY 90 days #90 tabs 10/17/24 12/12/24 Rx apixaban 5 mg tablet (Eliquis) 5 mg PO BID #30 tabs 11/07/24 12/12/24 Rx adalimumab 40 mg/0.8 mL 40 mg SQ WEEKLY 11/16/24 12/12/24 History subcutaneous pen kit (Humira Pen) benzonatate 100 mg capsule 100 mg PO BIDP PRN cough 12/12/24 12/12/24 History fluticasone fur. 100 mcg-umeclid 1 inh inhalation DAILY 30 days #60 12/14/24 Rx 62.5 mcg-vilant 25 mcg ea inhalat.powder (Trelegy Ellipta) levofloxacin 750 mg tablet 750 mg PO 1100 2 days #2 tabs 12/14/24 Rx prednisone 20 mg tablet 40 mg (2 x 20 mg) PO DAILY 4 days 12/14/24 Rx #8 tabs New Prescriptions to Start Prescriptions: [id number] [Trelegy Ellipta] Sreedhar Goodwin levofloxacin Sreedhar Goodwin prednisone Sreedhar Goodwin Allergies Allergy/AdvReac Type Severity Reaction Status Date / Time Penicillins Allergy sore mouth Verified 12/07/24 09:06 Discharge Plan Disposition Patient Disposition: Home, Self-Care Condition: Good Discharge Order Discharge Orders: Discharge Order (Routine); Ordered 12/14/24 Ordered By: Sreedhar Goodwin Follow up Plan Follow up with: Bernard Sommer MD [Primary Care Provider] - 12/20/24 11:00 am Adelfo Vázquez MD [Physician] - Enter time for follow up Prescriptions/Medication Reconciliation: New Trelegy Ellipta 100-62.5-25 mcg Blister With Device 1 inh inhalation DAILY 30 Days Qty: 60 0RF levofloxacin 750 mg Tablet 750 mg PO 1100 2 Days Qty: 2 0RF prednisone 20 mg tablet 40 mg PO DAILY 4 Days Qty: 8 0RF Continued Humira Pen 40 mg/0.8 mL pen injector kit 40 mg SQ WEEKLY diltiazem HCl 120 mg capsule,extended release 24hr 120 mg PO DAILY Qty: 30 5RF citalopram 20 mg tablet 20 mg PO DAILY 90 Days Qty: 90 0RF Eliquis 5 mg tablet 5 mg PO BID Qty: 30 5RF benzonatate 100 mg capsule 100 mg PO BIDP PRN (Reason: cough) Discontinued Anoro Ellipta 62.5-25 mcg/actuation blister with device 1 inh inhalation DAILY 90 Days Qty: 180 2RF Other Ambulatory Orders: Home Medical Equipment (Routine) Location: None Selected Ordered By: Sreedhar Goodwin Problem Reconciliation Problems Reviewed?: Yes Patient Discharge Instructions ACTIVITY: Continue current activity DIET: continue same diet Patient Instructions: DI for Pneumonia -- Adult, DI for Respiratory Failure Print Language: Citizen Of [place] Providers Primary Care Provider: Bernard Sommer Admit Provider: Esequiel Aguilar Attending Provider: Esequiel Aguilar
[2024-12-14 08:00] VITALS: BP 156/85; PULSE 71; RESP 16; TEMP 36.6; O2SAT 95
[2024-12-14] MEDS: dilTIAZem ER 120MG CAPSULE 120 MG PO (08:36)
[2024-12-14] MEDS: CITALOPRAM 20MG TABLET 20 MG PO (08:36)
[2024-12-14] MEDS: APIXABAN 5MG TABLET 5 MG PO (08:36)
[2024-12-14] MEDS: METHYLPREDNISOLONE SOD SUCC 40MG VIAL 40 MG IV (08:36)
[2024-12-14 08:41] VITALS: PULSE 69
[2024-12-14] MEDS: SODIUM CHLORIDE 3% 15ML NEB 3 ML IH (08:41)
--- NOTE | 2024-12-14 09:40 | P.PN_ITS ---
Subjective *Date: 12/14/24 *Time: 11:35 Interval history: No acute respiratory vents overnight. Patient admits continued improvement in her respiratory symptoms. Pulmonology Exam Inpatient Vital signs and Labs for Last 24 Hours: Temp Pulse Resp BP Pulse Ox O2 Del Method O2 Flow Rate 98 F 69 16 156/85 H 95 Nasal Cannula 2 12/14/24 08:00 12/14/24 08:41 12/14/24 08:00 12/14/24 08:00 12/14/24 08:00 12/14/24 08:47 12/14/24 08:47 FiO2 28 12/13/24 19:37 Laboratory Results - last 24 hr 12/13/24 06:17: C-Reactive Protein 40.2 H, Triglycerides 101 12/14/24 05:20: WBC 7.4 D, RBC 3.85 L, Hgb 12.4, Hct 37.6, MCV 97.7, MCH 32.2 H , MCHC 33.0, RDW 12.2, Plt Count 215, MPV 10.3, Neut % (Auto) 86.0 H, Lymph % (Auto) 9.7 L, [place] % (Auto) 3.5, Eos % (Auto) 0.0 L, Baso % (Auto) 0.0 L, Neut # (Auto) 6.4, Lymph # (Auto) 0.7, [place] # (Auto) 0.3, Eos # (Auto) 0.0, Baso # (Auto) 0.0, Sodium 134 L, Potassium 4.3, Chloride 104, Carbon Dioxide 28, Anion Gap 6.3, BUN 22 H D, Creatinine 0.60, Estimated Creat Clear 52, Estimated GFR 96, Est GFR ( Amer) 116, Glucose 208 H, Calcium 8.9, Magnesium 2.2, Total Bilirubin 0.2, AST 30, ALT 25, Alkaline Phosphatase 94, C-Reactive Protein 19.8 H D, Total Protein 5.5 L, Albumin 3.0 L, Globulin 2.5, Albumin/Globulin Ratio 1.2, Amylase 60, Lipase 158 Temp Pulse Resp BP Pulse Ox O2 Del Method O2 Flow Rate 98.4 F 70 18 126/81 95 Nasal Cannula 2 12/12/24 11:47 12/12/24 11:48 12/12/24 11:48 12/12/24 11:48 12/12/24 11:48 12/12/24 11:48 12/12/24 11:48 Laboratory Results - last 24 hr 12/12/24 09:24: VBG pH 7.47 H, VBG pCO2 31.5 L, VBG pO2 45.3 H, VBG HCO3 22.2 L, VBG Total CO2 23.1, VBG O2 Saturation 83.0 H, VBG Base Excess -1.6, VBG Lactic Acid 1.3 12/12/24 09:35: WBC 12.3 H, RBC 4.17 L, Hgb 13.8, Hct 40.7, MCV 97.6, MCH 33.1 H , MCHC 33.9, RDW 12.1, Plt Count 230, MPV 10.0, Neut % (Auto) 86.8 H, Lymph % (Auto) 8.2 L, [place] % (Auto) 4.6, Eos % (Auto) 0.0 L, Baso % (Auto) 0.1, Neut # (Auto) 10.7 H, Lymph # (Auto) 1.0, [place] # (Auto) 0.6, Eos # (Auto) 0.0, Baso # (Auto) 0.0, D-Dimer 0.72 H, Sodium 135 L, Potassium 3.6, Chloride 104, Carbon Dioxide 29, Anion Gap 5.6, BUN 15, Creatinine 0.60, Estimated Creat Clear 54, Estimated GFR 96, Est GFR ( Amer) 116, Glucose 130 H, Calcium 9.0, Total Bilirubin 0.3, AST 33, ALT 28, Alkaline Phosphatase 113, Troponin I 0.01, NT-Pro-B Natriuret Pep 420, Total Protein 6.3, Albumin 3.5, Globulin 2.8, Albumin/Globulin Ratio 1.3 12/12/24 09:40: Chlamy pneumoniae PCR Not detected, Adenovirus (PCR) Not detected, B. pertussis DNA (PCR) Not detected, Coronavirus OC43 (PCR) Not detected, Coronavirus HKU1 (PCR) Not detected, Coronavirus 229E (PCR) Not detected, SARS-CoV-2 (PCR) Not detected, Coronavirus NL63 (PCR) Not detected, Human Metapneumovir PCR Not detected, Influenza A (H1) PCR Not detected, Influ A (H1N1/09) PCR Not detected, Influenza A (H3) PCR Not detected, Influenza Type A (PCR) Not detected, Influenza Type B (PCR) Not detected, M. pneumoniae (PCR) Not detected, Parainfluenza 1 (PCR) Not detected, Parainfluenza 2 (PCR) Not detected, Parainfluenza 3 (PCR) Not detected, Parainfluenza 4 (PCR) Not detected, RSV (PCR) Not detected, Entero/Rhino (PCR) Not detected I & O for Labs for Last 24 Hours: Intake & Output 12/11/24 12/12/24 12/13/24 12/14/24 23:59 23:59 23:59 23:59 Intake Total 560 / 800 1230 / 1470 600 / 600 Output Total 0 / 0 0 / 0 0 / 0 Balance 560 / 800 1230 / 1470 600 / 600 Weight 166 lb 165 lb 15.988 oz 165 lb 12.8 oz Intake & Output 12/09/24 12/10/24 12/11/24 12/12/24 23:59 23:59 23:59 23:59 Weight 166 lb Microbiology Reports for the Last 24 Hours: Microbiology 12/12/24 09:35 Blood Blood Culture - Preliminary NO GROWTH AFTER 24 HOURS 12/12/24 09:30 Blood Blood Culture - Preliminary NO GROWTH AFTER 24 HOURS Constitutional: Present mild distress Head: Present normocephalic and atraumatic ENT: Present normal exam, normal oropharynx and mucous membranes moist Neck: Present normal inspection and full ROM Respiratory: Present respiratory distress, diminished air movement and able to speak in complete sentences; Absent wheezes Cardiac: Present S1/S2, Tachycardia and radial pulses present GI: Present soft and distention; Absent tenderness or guarding Rectal (female): Present deferred (female): Present deferred Skin: Present intact; Absent cyanosis or jaundice Neuro: Present alert, awake and oriented x 3 Extremities: Present normal inspection; Absent clubbing or cyanosis Psychiatric: Present normal affect and cooperative Assessment and Plan *Assessment and plan (1) Acute exacerbation of chronic obstructive pulmonary disease: Status: Acute Category: Medical Code(s): J44.1 - Chronic obstructive pulmonary disease with (acute) exacerbation (2) Pneumonia: Status: Acute Category: Medical Code(s): J18.9 - Pneumonia, unspecified organism (3) Bronchiolitis: Status: Acute Category: Medical Code(s): J21.9 - Acute bronchiolitis, unspecified Plan Ms. Rojas is a 79-year-old female greater than 09-aqcf-peon smoking/smoked greater than 20 years ago history of rheumatoid arthritis previously on Pl[place] enil, recently started on Humira presented today with worsening respiratory distress. Patient presented to the urgent care center, diagnosed with influenza pneumonia 12/07/2024, completed course of Tamiflu. Patient admits gradually worsening respiratory symptoms for the last 2 days. Her symptoms are worse now than she was diagnosed with influenza pneumonia Mild neutrophilic prominent leukocytosis upon admission. Afebrile. Hemodynamically stable. Blood gas upon admission respiratory alkalosis. D- dimer elevated at 0.72 Chest x-ray upon admission, upper lobe predominant emphysematous changes. No dense consolidative/airspace changes noted. CTA no evidence of pulmonary embolism. No dense consolidative/airspace changes. Concern for bronchiolitis in the lower lobes. On initial examination appeared to be in severe respiratory distress. Bilateral diffuse wheezing noted. Interval update: No acute respiratory vents overnight. Serum triglyceride levels within normal limits. Abdominal ultrasound unremarkable. Serum lipase levels within normal limits now at 158 Mild expiratory wheezing, significantly improved from prior. Saturating 97% on 2 L Plan: Saturating 97% on 2 L. Weaned to room air. Will also perform 6-minute walk testing prior to discharge. Trelegy 100 inhaler along with DuoNebs 4 times daily as needed Wean steroids to prednisone 40 mg daily to complete a total of 7-day course Continue levofloxacin 750 mg daily x 5 days. Recommend to monitor QTc # Thank you for involving pulmonary in this patient care. Will follow the patient in pulmonary clinic 2 weeks post discharge.
[2024-12-14] MEDS: levoFLOXacin 750 MG TABLET PO (10:00)
--- NOTE | 2024-12-16 10:41 | SW/DCPLANNER ---
Phoned patient x2. no answer. Left messages with call back number with my name. Andry Walter
== END 2024-12-14 14:22 | disposition home or self-care (01) | DRG 190 ==
LOC: ER 11:09 → 2ND 11:22
PROVIDERS: Internal Medicine Pulmonary Disease; Nurse Practitioner Family; Admitting Provider Student in an Organized Health Care Education/Training Program; Emergency Provider Student in an Organized Health Care Education/Training Program; PCP Family Medicine; Visit Provider Student in an Organized Health Care Education/Training Program
DX: J44.1 Chronic obstructive pulmonary disease with (acute) exacerbation (principal); J96.01 Acute respiratory failure with hypoxia; J21.9 Acute bronchiolitis, unspecified; I48.0 Paroxysmal atrial fibrillation; R93.5 Abnormal findings on diagnostic imaging of other abdominal regions, including retroperitoneum; M06.9 Rheumatoid arthritis, unspecified; K58.9 Irritable bowel syndrome, unspecified; R91.8 Other nonspecific abnormal finding of lung field; F32.A Depression, unspecified; F41.9 Anxiety disorder, unspecified; R74.8 Abnormal levels of other serum enzymes; Z87.891 Personal history of nicotine dependence; Z79.51 Long term (current) use of inhaled steroids; Z79.899 Other long term (current) drug therapy; Z79.620 Long term (current) use of immunosuppressive biologic; Z90.49 Acquired absence of other specified parts of digestive tract; Z80.9 Family history of malignant neoplasm, unspecified; Z82.49 Family history of ischemic heart disease and other diseases of the circulatory system; Z88.0 Allergy status to penicillin
CPT/HCPCS: 36415; 71045; 71275; 76705; 80053; 82150; 82803; 83690; 83735; 83880; 84478; 84484; 85025; 85378; 86140; 87040; 87081; 87633; 93005; 94640; 94760; 94761; 97163; 99291; J1956; J2919; J3475; J7120; J7620; Q9967

== ENCOUNTER 2025-06-13 09:43 | Outpatient (CLI) | payer MEDICARE, SELFPAY ==
--- OUTSIDE RECORDS SUMMARY | 2025-06-13 10:10 | XMS_ITS | Encounter Summary ---
Author Organization Healthcare Address [address] [place] [address] Care Team Providers Care Supervisor Air Conditioning Installer Name Role Phone Bernard Sommer MD Primary Care Provider Danika vailable Encounter Details Date Type Department Care Team (Late st Contact Info) Description 03/15/2025 Results Follow-Up [facility] Medicine Specialties [address] [place] [address] Patricia Mcallister, MOTORCYCLE MAKER [address] [place] [address] Social History Tobacco Use Types Packs/Day Years Used Date Smoking Tobacco: Former Cigarettes 1 18 1 962 - 1980 Passive Smoke Exposure: Past Smokeless Tobacco: Never Alcohol Use Standard Drinks/Week Comments Not Currently 0 (1 standard drink = 0.6 oz pur e alcohol) Humiliation, Afraid, Rape, and Kick questionnair e Answer Date Recorded Within the last year, have y ou been afraid of your partner or ex-partner? No 12/01/2023 Within the last year, have y ou been humiliated or emotionally abused in other ways by your partner or ex-partner? No Within the last year, have y ou been kicked, hit, slapped, or otherwise physically hurt by your partner or ex-partner? No 12/01/2023 Within the last year, have y ou been raped or forced to have any kind of sexual activity by your partner or ex-partner? No 12/01/2023 PHQ-2 Answer Date Recorded Patient Health Questionnaire-2 Score 0 03/14/2025 Hunger Vital Sign Answer Date Recorded Within the past 12 months, y ou worried that your food would run out before you got the money to buy more. Never true 12/01/19 Within the past 12 months, t he food you bought just didn't last and you didn't have money to get more. Never true 12/01/2023 PRAPARE - Transportation Answer Date Re corded In the past 12 months, has l ack of transportation kept you from medical appointments or from getting medications? No 11/13 In the past 12 months, has l ack of transportation kept you from meetings, work, or from getting things needed for daily living? No 12/01/2023 Housing Stability Vital Sign Answer Chepe e Recorded In the last 12 months, was t here a time when you were not able to pay the mortgage or rent on time? No 12/01/2023 In the last 12 months, how many places have you lived? 1 12/01/2023 In the last 12 months, was t here a time when you did not have a steady place to sleep or slept in a [facility] (including now)? No 12/01/2023 AUDIT-C Answer Date Recorded Q1: How often do you have a drink containing alc ohol? Monthly or less 03/14/2025 Average Number of Drinks Not on file 025 Frequency of Binge Drinking Not on file 12/2024 CAGE ASSESSMENT Answer Date Recorded Cage unable to access Not on file 12/01/2023 Cage max number of drinks Not on file 2023 Cage Beverages a week Not on file 12/01/2023 Have you ever felt you should CUT down on your d rinking? 0 12/01/2023 Have you been ANNOYED by people criticizing your drinking? 0 12/01/2023 Have you felt GUILTY about your drinking? 0 12/01/2023 Have you had a drink first t jimi in the morning (EYE-FLOWER BUNCHER OR PICKER) to steady your nerves or to get rid of a hangover? 0 12/01/2023 CAGE Questionnaire Score 0 024 Utilities Answer Date Recorded In the past 12 months has th e electric, gas, oil, or water company threatened to shut off services in your home? No 12/01/2023 Comments Unknown Sex and Gender Information Value Date Recorded Sex Assigned at Not on file Legal Sex Female 9:43 AM EST Gender Identity Not on file Sexual Orientation Not on file documented as of this encounter Plan of Treatment Upcoming Encounters Date Type Department Care Team (Late st Contact Info) Description 07/24/2025 1:10 PM EDT Office Visit [facility] Medicine Specialties [address] [place] [address] Patricia Mcallister, MOTORCYCLE MAKER [address] [place] [address] documented as of this encounter Visit Diagnoses Not on filedocumented in this encounter Additional Health Concerns Assessment Noted Time A fall risk assessment has been complete d for the patient 03/14/2025 1:58 PM EDT A Body Mass Index follow-up plan has been documented for the patient 03/14/2025 2:44 PM EDT documented as of this encounter Care Teams Supervisor Air Conditioning Installer Relationship Specialty Start Date End Date Bernard Sommer MD PCP - General Family Medicine 11/30/23 documented as of this encounter
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
--- OUTSIDE RECORDS SUMMARY | 2025-06-13 10:10 | XMS_ITS | Clinical Summary ---
Author Organization [facility] Address [address] [place] [address] Care Team Providers Care Dyer Assistant Name Role Phone Bebo Stone MD Primary Care Provider [phone] Allergies Active Allergy Reactions Criticality Noted Date Comments Penicillins Swelling Medium 06/30/2016 Medications citalopram (CeleXA) 10 MG tablet Take 10 mg by mouth daily. Active fexofenadine (GIULIANA) 180 MG tablet Take 180 mg by mouth Daily. Active Umeclidinium-Antonio anterol (ANORO ELLIPTA) 62.5-25 MCG/INH aerosol powder Inhale Daily. Active Active Problems No known active problems Immunizations Immunization Administration Dates Next Due Pneumococcal Conjugate 13-Valent (PCV13) 017 Pneumococcal Polysaccharide (PPSV23) 06/07/2019 Family History Medical History Relation Name Comments Cancer Mother Relation Name Status Comments Mother Social History Tobacco Use Types Packs/Day Years Used Date Smoking Tobacco: Former Cigarettes S tarted: 10/12/1989 Smokeless Tobacco: Never Alcohol Use Standard Drinks/Week Comments Yes 0 (1 standard drink = 0.6 oz pur e alcohol) Rarely Abuse Screen Answer Date Recorded Unsafe at Home or Work/School Not on file Feels Threatened by Someone? Not on file 08/2023 Does Anyone Keep You from Co ntacting Others or Doint Things Outside the Home? Not on file 07/22/2023 Physical Sign of Abuse Present Not on file 1 Housing Stability Answer Date Recorded Current Living Arrangements Not on file 07/12 Potentially Unsafe Housing Conditions Not on myron e 07/22/2023 Family and Community Support Answer Chepe e Recorded Help with Day-to-Day Activities Not on file 07/22/2023 Lonely or Isolated Not on file 07/22/2023 Employment Answer Date Recorded Do you want help finding or keeping work or a franko b? Not on file 07/22/2023 Disabilities Answer Date Recorded Concentrating, Remembering, or Making Decisions Difficulty Not on file 07/22/2023 Doing Errands Independently Difficulty Not on fi le 07/22/2023 Education Answer Date Recorded Help with school or training? Not on file Preferred Language Not on file 07/22/2023 Comments No Sex and Gender Information Value Date Recorded Sex Assigned at Not on file Legal Sex Female 9:25 AM EDT Gender Identity Not on file Sexual Orientation Not on file Last Filed Vital Signs Vital Sign Reading Time Taken Comments Blood Pressure 122/78 10/13/2019 8:06 AM EST Pulse 77 10/13/2019 8:06 AM EST Temperature 36.3 C (97.3 F) 10/13/2019 8:06 AM EST Respiratory Rate 16 10/13/2019 8:06 AM EST Oxygen Saturation 94% 10/13/2019 8:06 AM EST Inhaled Oxygen Concentration - - Weight 81 kg (178 lb 9.6 oz) 10/13/2019 8:06 AM EST Height 170.2 cm (5' 7 ) 10/13/2019 8:06 AM EST Body Mass Index 27.97 10/13/2019 8:06 AM EST Plan of Treatment Health Maintenance Due Date Last Done Comments DXA SCAN 1945 TDAP/TD VACCINES (1 - Tdap) 1962 COLOGUARD 1988 COLON CANCER SCREENING 5 YEA R SIGMOIDOSCOPY 1988 COLONOSCOPY [address] CANCER SCREENING 1988 [address] COLONOGRAPHY 1988 FECAL OCCULT BLOOD TEST 1988 FIT Testing (1 year) 1988 ZOSTER VACCINE (1 of 2) 1993 ANNUAL PHYSICAL 06/18/2017 RSV Vaccine - Adults (1 - 1- dose 75+ series) 2018 COVID-19 Vaccine (1 - 2023- season) 2024 INFLUENZA VACCINE 07/12/2025 Pneumococcal Vaccine 50+ Completed 06/07/2019, 07/13 Insurance MEDICARE A & B Care Teams Dyer Assistant Relationship Specialty Start Date End Date Bebo Stone MD [facility] [address] [place] [address] PCP - General Adolescent Medicine 06/30/16
--- OUTSIDE RECORDS SUMMARY | 2025-06-13 10:10 | XMS_ITS | Encounter Summary ---
Author Organization [facility] Address [address] [place] [address] Care Team Providers Care Cad Detailer Name Role Phone Bernard Sommer MD Primary Care Provider Danika vailable Reason for Visit * Reason Onset Date Comments Eladio Sal 03/14/2025 Encounter Details Date Type Department Care Team (Late st Contact Info) Description 03/14/2025 Telephone [facility] [address] [place] [address] Phyllis Aldridge Social History Tobacco Use Types Packs/Day Years [...] place to sleep or slept in a senior care (including now)? 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 Question Answer Date of Assessment Author Little interest or pleasure in doing things Not at all 03/14/2025 1:58 PM EDT Nell Ferrara Feeling down, depressed, or hopeless Not at all 03/14/2025 1:58 PM EDT Nell Ferrara Patient Health Questionnaire -2 Score 0 03/14/2025 1:58 PM EDT Nell Ferrara documented as of this encounter Miscellaneous Notes * Telephone Encounter - Phyllis Aldridge - 03/14/2025 2:53 PM EDT Per discussion with provider, Orencia has been ordered at the request of the provider for 28 day supply with 3 refills to [facility] pharmacy. Cosigned by Mike Snyder PharmD at 03/15/2025 11:46 AM EDT Associated attestation - Mike Snyder PharmD - 03/15/2025 11:46 AM EDT I attest to the pharmacy clinical coordinator's recommendations. Thanks! 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
[2025-06-13 10:50] VITALS: PULSE 68; PULSE 69
[2025-06-13] MEDS: ALBUTEROL 0.083% 2.5 MG/3 ML NEB IH (10:50)
== END 2025-06-13 23:59 | disposition home or self-care (01) ==
LOC: RT 09:43
PROVIDERS: PCP Family Medicine; Visit Provider Internal Medicine Pulmonary Disease
DX: J44.9 Chronic obstructive pulmonary disease, unspecified (principal); R94.2 Abnormal results of pulmonary function studies
CPT/HCPCS: 94060; 94618; 94640; 94726; 94729